=== PATIENT | male | born 1955 | race Two or more races ===

== ENCOUNTER 2020-03-10 12:17 | Inpatient (IN) | payer OTHER ==
--- NOTE | 2020-03-10 12:51 | PDOC ---
History of Present Illness - General Chief Complaint: Wound Stated Complaint: WOUND Time Seen by Provider: 03/10/20 12:48 History Source: Patient Exam Limitations: No Limitations - History of Present Illness Initial Comments: 64 year old male with a history of CAD s/p CABG (3 vessel) and cardiac stent, diabetes, hypertension, atrial fibrillation, iron deficiency anemia sent by Dr Ibrahim for chronic worsening left foot wound. Has been followed by Dr Ibrahim podiatry, treatment w wound clinic and hyperbarics. Last admitted 01/18- for L toe dry gangrene, followed w Dr Dangelo vascular, amputated L 2nd digit with Dr. Gonzalez on 01/23/20. Denies foot pain, discharge/bleeding, numbness. Past History - Medical History Allergies/Adverse Reactions: Allergies Allergy/AdvReac Type Severity Reaction Status Date / Time No Known Allergies Allergy Verified 03/10/20 12:44 Home Medications: Ambulatory Orders Empagliflozin [Jardiance] 10 mg PO DAILY 01/14/20 Furosemide [Lasix] 40 mg PO BID 01/14/20 Lisinopril [Zestril] 2.5 mg PO DAILY 01/14/20 Sitagliptin Phosphate [Januvia] 25 mg PO DAILY 01/14/20 Baclofen 10 mg PO BID 01/23/20 Apixaban [Eliquis -] 5 mg PO BID #60 tablet 01/24/20 Aspirin [ASA -] 81 mg PO DAILY tab.chew 01/24/20 Atorvastatin Ca [Lipitor] 80 mg PO HS #30 tablet 01/24/20 Docusate Sodium [Colace -] 100 mg PO BID #40 capsule 01/24/20 Ferrous Sulfate [Feosol] 325 mg PO BID #60 ud 01/24/20 Metoprolol Tartrate [Lopressor -] 12.5 mg PO BID #60 tablet 01/24/20 Cardiac Disorders: Yes (CAD . s/p PCI , HTN NSTEMI 02/2019) COPD: No Diabetes: Yes (PAD) HTN: Yes Hypercholesterolemia: Yes - Surgical History Cardiac Surgery: Yes (CABG s/p percutaneous coronary angioplasty) - Psycho-Social/Smoking History Smoking History: Former smoker Have you smoked in the past 12 months: No Number of Cigarettes Smoked Daily: 20 If you are a former smoker, when did you quit?: 30 years ago Cigars Per Day: 0 Information on smoking cessation initiated: No - Substance Abuse Hx (Audit-C & DAST Scrn) How often the patient has a drink containing alcohol: Never Score: In Men: 4 or > Positive; In Women: 3 or > Positive: 0 Screen Result (Pos requires Nsg. Audit-10AR): Negative In the last yr the pt used illegal drug/Rx for NonMed reason: No Score: Yes response is considered Positive: 0 Screen Result (Positive result requires Nsg. DAST-10): Negative Review of Systems - Review of Systems Constitutional: No: Chills, Fever HEENTM: No: Eye Pain, Throat Pain Respiratory: No: Cough, Shortness of Breath Cardiac (ROS): No: Chest Pain, Lightheadedness ABD/GI: No: Abdominal Distended, Constipated, Diarrhea, Nausea, Vomiting : No: Burning, Dysuria Musculoskeletal: No: Back Pain, Joint Pain Integumentary: No: Bruising, Dryness Neurological: No: Headache, Seizure Psychiatric: No: Anxiety, Depression Endocrine: No: Intolerance to Cold, Intolerance to Heat Hematologic/Lymphatic: No: Anemia, Blood Clots *Physical Exam - Vital Signs Last Vital Signs Temp Pulse Resp BP Pulse Ox 97.9 F 85 18 121/70 100 03/10/20 12:20 03/10/20 12:20 03/10/20 12:20 03/10/20 12:20 03/10/20 12:20 - Physical Exam General Appearance: Yes: Nourished, Appropriately Dressed, Mild Distress HEENT: positive: EOMI, BEBA, Normal Voice, Hearing Grossly Normal. negative: Scleral Icterus (R), Scleral Icterus (L) Respiratory/Chest: positive: Lungs Clear, Normal Breath Sounds. negative: Chest Tender, Respiratory Distress Cardiovascular: positive: Regular Rhythm, Regular Rate, S1, S2. negative: Edema, Murmur Gastrointestinal/Abdominal: positive: Normal Bowel Sounds, Flat, Soft. negative: Tender, Organomegaly Extremity: positive: Other (L foot : warm, darkened toes. 4x2cm non purulent white/yellow ulcer over L 2nd digit amputation. nonpalpable DP pulse. Able to wiggle toes. Intact sensation to touch. Mildly tender distal MTP base) Integumentary: positive: Normal Color, Warm Neurologic: positive: Fully Oriented, Alert, Normal Response ED Treatment Course - LABORATORY CBC & Chemistry Diagram: 03/10/20 13:00 03/10/20 13:00 Medical Decision Making - Medical Decision Making 03/10/20 15:02 EKG - a fib w pacemaker, HR 81, QTc 478, TWI V6, II, III, aVF, unchanged vs 01/22 --- 64 year old male with a history of CAD s/p CABG (3 vessel) and cardiac stent, diabetes, hypertension, atrial fibrillation, iron deficiency anemia sent by Dr Ibrahim for chronic worsening left foot wound. Gangrene vs cellulitis. Low concern for arterial occlusion (intact sensation, not painful) vs oteomyelitis (not seen on XR). Neurovascular intact Cr 1.6 unchanged Given vanc, zosyn Dr Ibrahim podiatry - advised cover w broad spectrum AB, get XR, inpatient routine MRI, will evaluate Placed consults for Dr Hair ID and Dr Dangelo vascular Admit m/s for L foot ulcer Discharge - Discharge Information Problems reviewed: Yes Clinical Impression/Diagnosis: Foot ulcer Qualifiers: Laterality: left Non-pressure ulcer stage: with necrosis of muscle Qualified Code(s): L97.523 - Non-pressure chronic ulcer of other part of left foot with necrosis of muscle Condition: Stable - Follow up/Referral - Patient Discharge Instructions - Post Discharge Activity
[2020-03-10] MEDS ORDERED: PIPERACILLIN/TAZOB 4.5 GM 4.5 GM in DEXTROSE 5%-WATER 100 ML IVPB ONE (13:42)
[2020-03-10] MEDS ORDERED: VANCOMYCIN 1 GM in D5W (PRE-DOCKED) 1,000 MG/250 ML IVPB ONE (13:42)
[2020-03-10] MEDS ORDERED: PIPERACILLIN/TAZOB 4.5 GM 4.5 GM/100 ML BAG IVPB ONE (14:19)
[2020-03-10] MEDS ORDERED: VANCOMYCIN 1 GRAM (PRE-DOCKED) 1,000 MG/250 ML BAG IVPB ONE ×2 (14:19→14:20)
[2020-03-10 14:25] LABS: BASO % 0.9 % (0-2.0); EOS % 3.3 % (0-4.5); HEMATOCRIT 41.3 % (35.4-49); LYMPH % 13.6 % (8-40); MCH 24.2 pg (25.7-33.7); MCHC 31.5 g/dl (32.0-35.9); MEAN CELL VOLUME 76.9 fl (80-96); MEAN PLT VOLUME 8.4 fl (7.5-11.1); MONO % 11.9 % (3.8-10.2); NEUT % 70.3 % (42.8-82.8); PLATELET COUNT 229 K/MM3 (134-434); RBC 5.38 M/mm3 (4.00-5.60); RDW 19.8 % (11.9-15.9); WHITE BLOOD COUNT 8.7 K/mm3 (4.0-10.0)
[2020-03-10 14:52] LABS: ALBUMIN 3.5 g/dl (3.4-5.0); BILIRUBIN,TOTAL 0.8 mg/dL (0.2-1); BLOOD UREA NITROGEN 35.6 mg/dL (7-18); CALCIUM 8.9 mg/dL (8.5-10.1); CREATININE 1.6 mg/dL (0.55-1.3); POTASSIUM 4.4 mmol/L (3.5-5.1); TOT PROT 7.5 g/dl (6.4-8.2)
--- NOTE | 2020-03-10 15:43 | PN ---
Teaching Attending Note Name of Resident: Angelica Fountain ATTENDING PHYSICIAN STATEMENT I saw and evaluated the patient. I reviewed the resident's note and discussed the case with the resident. I agree with the resident's findings and plan as documented. SUBJECTIVE: 64 year old male with known history of CAD/ CABG, history of cardiac stent placement,s DM 2, hypertension, Atrial fib (?AC) iron deficiency anemia who was sent by Dr Ibrahim for chronic worsening left foot wound. He was last admitted 01/2020 for left toe gangrene sp amputation of the left second MTP. OBJECTIVE: 64 year old male who appears appropriate for stated age Agree with Exam by Dr Fountain ASSESSMENT AND PLAN: 1. Nonhealing left foot ulcer - Digital Community Manager Dr Ibrahim will follow - inpt MRI ordered (Dr Ballard and ED) - ID gis consultant Dr Hair and Dr Dangelo already consulted by ED - await assessment by services as above for further management recommendations 2. CAD/ Afib - not on AC - chest pain free - afib with acceptable rate 3. DM 2 - will start SSI, accuchecks 4. DVT prophylaxis - SCD
--- NOTE | 2020-03-10 15:57 | PDOC ---
Documentation entered by Brigid Velazquez SCRIBE, acting as scribe for Aaron Bird MD. Aaron Bird MD: This documentation has been prepared by the Caroline villalta Nirvannie, SCRIBE, under my direction and personally reviewed by me in its entirety. I confirm that the documentation accurately reflects all work, treatment, procedures, and medical decision making performed by me. Attending Attestation - Resident Resident Name: SisiAbram - ED Attending Attestation I have performed the following: I have examined & evaluated the patient, The case was reviewed & discussed with the resident, I agree w/resident's findings & plan, Exceptions are as noted - HPI HPI: 03/10/20 15:09 64yom with a significant past medical history of cad (s/p 3 vessel cabg and cardiac stenting), dm, htn, afib, iron deficiency anemia, and recent admission 01/18- for left 2nd toe gangrene (s/p left second toe amputation 01/22)who presents to the ed with progressively worsening left foot wound. As per patient, he is followed by podiatry, Dr. Ibrahim, at wound care/hyperbarics and was advised to report to the ed by podiatry to report to the ed for further evaluation. - Physicial Exam PE: 03/10/20 13:42 GENERAL: The patient is awake, alert, and fully oriented, Nontoxic - in no acute distress. EXTREMITIES: wound on area of amputation, non eryuthemaouds, discharge in the region, non fluctuabnt, mild tenderness at the 2nd metatarsal SKIN: Warm, Dry, normal turgor, - Medical Decision Making 03/10/20 13:44 64y M hxof ESRD, cad sp cabg, dm, htn, afib on xeralto, sp L 2nd digit amputation on 01/22 sent by wound care for evaluation of his wound. pt notes some soreness to the region, but dneis nay fever/chills, n/v, signiicnat pain, redness/swelling, streaking. will obtian lab work will give abx per dr. molina instructions xray to screen for osteo anticipate admission 03/10/20 18:50 Labs and x-rays reviewed, will admit for further managementFor further evaluation of his wound Heart Score/ECG Review - ECG Impressions Comment:: 03/10/20 13:45 Twelve-lead EKG was performed and reviewed by me. Irregularly irregular, rate of 81 Rightward axis Discharge - Discharge Information Problems reviewed: Yes Clinical Impression/Diagnosis: Foot ulcer Qualifiers: Laterality: left Non-pressure ulcer stage: with necrosis of muscle Qualified Code(s): L97.523 - Non-pressure chronic ulcer of other part of left foot with necrosis of muscle Condition: Stable - Follow up/Referral - Patient Discharge Instructions - Post Discharge Activity
[2020-03-10] MEDS ORDERED: ACETAMINOPHEN 325 MG TABLET (FP) PO PRN (17:36)
--- NOTE | 2020-03-10 17:50 | HP ---
<Belkis Howell - Last Filed: 03/11/20 11:53> CHIEF COMPLAINT: PCP: HISTORY OF PRESENT ILLNESS: ER course was notable for: (1) (2) (3) Recent Travel: PAST MEDICAL HISTORY: PAST SURGICAL HISTORY: Social History: Smoking: Alcohol: Drugs: Allergies No Known Allergies Allergy (Verified 03/10/20 12:44) HOME MEDICATIONS: Home Medications Medication Instructions Recorded Empagliflozin [Jardiance] 10 mg PO DAILY 01/14/20 Furosemide [Lasix] 40 mg PO BID 01/14/20 Lisinopril [Zestril] 2.5 mg PO DAILY 01/14/20 Sitagliptin Phosphate [Januvia] 25 mg PO DAILY 01/14/20 Baclofen 10 mg PO BID 01/23/20 Apixaban [Eliquis -] 5 mg PO BID #60 tablet 01/24/20 Aspirin [ASA -] 81 mg PO DAILY tab.chew 01/24/20 Atorvastatin Ca [Lipitor] 80 mg PO HS #30 tablet 01/24/20 Docusate Sodium [Colace -] 100 mg PO BID #40 capsule 01/24/20 Ferrous Sulfate [Feosol] 325 mg PO BID #60 ud 01/24/20 Metoprolol Tartrate [Lopressor -] 12.5 mg PO BID #60 tablet 01/24/20 REVIEW OF SYSTEMS CONSTITUTIONAL: Absent: fever, chills, diaphoresis, generalized weakness, malaise, loss of appetite, weight change HEENT: Absent: rhinorrhea, nasal congestion, throat pain, throat swelling, difficulty swallowing, mouth swelling, ear pain, eye pain, visual changes CARDIOVASCULAR: Absent: chest pain, syncope, palpitations, irregular heart rate, lightheadedness, peripheral edema RESPIRATORY: Absent: cough, shortness of breath, dyspnea with exertion, orthopnea, wheezing, stridor, hemoptysis GASTROINTESTINAL: Absent: abdominal pain, abdominal distension, nausea, vomiting, diarrhea, constipation, melena, hematochezia GENITOURINARY: Absent: dysuria, frequency, urgency, hesitancy, hematuria, flank pain, genital pain MUSCULOSKELETAL: Absent: myalgia, arthralgia, joint swelling, back pain, neck pain SKIN: Absent: rash, itching, pallor HEMATOLOGIC/IMMUNOLOGIC: Absent: easy bleeding, easy bruising, lymphadenopathy, frequent infections ENDOCRINE: Absent: unexplained weight gain, unexplained weight loss, heat intolerance, cold intolerance NEUROLOGIC: Absent: headache, focal weakness or paresthesias, dizziness, unsteady gait, seizure, mental status changes, bladder or bowel incontinence PSYCHIATRIC: Absent: anxiety, depression, suicidal or homicidal ideation, hallucinations. PHYSICAL EXAMINATION Vital Signs - 24 hr 03/10/20 03/10/20 03/10/20 12:20 12:52 18:28 Temperature 97.9 F 98.6 F Pulse Rate 85 Pulse Rate [ 86 Radial] Respiratory 18 20 Rate Blood Pressure 121/70 Blood Pressure 115/69 [Left Arm] O2 Sat by Pulse 100 97 98 Oximetry (%) 03/10/20 03/10/20 03/11/20 20:00 21:00 02:00 Temperature 98.2 F 99.2 F Pulse Rate 121 H 94 H Pulse Rate [ Radial] Respiratory 20 20 20 Rate Blood Pressure 142/91 139/59 L Blood Pressure [Left Arm] O2 Sat by Pulse 97 97 Oximetry (%) 03/11/20 03/11/20 03/11/20 06:00 09:00 10:00 Temperature 99.2 F Pulse Rate 104 H 96 H Pulse Rate [ Radial] Respiratory 20 18 Rate Blood Pressure 100/62 118/66 Blood Pressure [Left Arm] O2 Sat by Pulse 96 Oximetry (%) GENERAL: Awake, alert, and fully oriented, in no acute distress. HEAD: Normal with no signs of trauma. EYES: Pupils equal, round and reactive to light, extraocular movements intact, sclera anicteric, conjunctiva clear. No lid lag. EARS, NOSE, THROAT: Ears normal, nares patent, oropharynx clear without ex udates. Moist mucous membranes. NECK: Normal range of motion, supple without lymphadenopathy, JVD, or masses. LUNGS: Breath sounds equal, clear to auscultation bilaterally. No wheezes, and no crackles. No accessory muscle use. HEART: Regular rate and rhythm, normal S1 and S2 without murmur, rub or gallop. ABDOMEN: Soft, nontender, not distended, normoactive bowel sounds, no guarding, no rebound, no masses. No hepatomegaly or splenomegaly. MUSCULOSKELETAL: Normal range of motion at all joints. No bony deformities or tenderness. No CVA tenderness. UPPER EXTREMITIES: 2+ pulses, warm, well-perfused. No cyanosis. No clubbing. No peripheral edema. LOWER EXTREMITIES: 2+ pulses, warm, well-perfused. No calf tenderness. No peripheral edema. NEUROLOGICAL: Cranial nerves II-XII intact. Normal speech. Normal gait. PSYCHIATRIC: Cooperative. Good eye contact. Appropriate mood and affect. SKIN: Warm, dry, normal turgor, no rashes or lesions noted, normal capillary refill. Laboratory Results - last 24 hr 03/10/20 03/10/20 03/10/20 13:00 13:00 18:15 WBC 8.7 RBC 5.38 Hgb 13.0 Hct 41.3 D MCV 76.9 L MCH 24.2 L MCHC 31.5 L RDW 19.8 H Plt Count 229 MPV 8.4 Absolute Neuts (auto) 6.1 Neutrophils % 70.3 Lymphocytes % 13.6 D Monocytes % 11.9 H Eosinophils % 3.3 Basophils % 0.9 Nucleated RBC % 0 PT with INR INR PTT (Actin FS) Sodium 138 Potassium 4.4 Chloride 102 Carbon Dioxide 30 Anion Gap 7 L BUN 35.6 H Creatinine 1.6 H Est GFR (CKD-EPI)AfAm 52.36 Est GFR (CKD-EPI)NonAf 45.18 POC Glucometer 219 Random Glucose 120 H Calcium 8.9 Phosphorus Magnesium Total Bilirubin 0.8 AST 16 ALT 24 Alkaline Phosphatase 87 Total Protein 7.5 Albumin 3.5 Triglycerides Cholesterol Total LDL Cholesterol HDL Cholesterol Blood Type Antibody Screen 03/10/20 03/11/20 03/11/20 21:07 06:13 08:36 WBC 10.0 RBC 5.05 Hgb 12.3 Hct 39.2 MCV 77.6 L MCH 24.3 L MCHC 31.3 L RDW 19.8 H Plt Count 228 MPV 8.3 Absolute Neuts (auto) 7.4 Neutrophils % 73.7 Lymphocytes % 12.6 Monocytes % 10.0 Eosinophils % 2.7 Basophils % 1.0 Nucleated RBC % 0 PT with INR INR PTT (Actin FS) Sodium Potassium Chloride Carbon Dioxide Anion Gap BUN Creatinine Est GFR (CKD-EPI)AfAm Est GFR (CKD-EPI)NonAf POC Glucometer 257 153 Random Glucose Calcium Phosphorus Magnesium Total Bilirubin AST ALT Alkaline Phosphatase Total Protein Albumin Triglycerides Cholesterol Total LDL Cholesterol HDL Cholesterol Blood Type Antibody Screen 03/11/20 03/11/20 03/11/20 08:36 08:36 08:36 WBC RBC Hgb Hct MCV MCH MCHC RDW Plt Count MPV Absolute Neuts (auto) Neutrophils % Lymphocytes % Monocytes % Eosinophils % Basophils % Nucleated RBC % PT with INR 22.80 H INR 1.92 H PTT (Actin FS) 38.3 H Sodium 140 Potassium 4.3 Chloride 105 Carbon Dioxide 30 Anion Gap 5 L BUN 32.9 H Creatinine 1.8 H Est GFR (CKD-EPI)AfAm 45.41 Est GFR (CKD-EPI)NonAf 39.18 POC Glucometer Random Glucose 128 H Calcium 8.7 Phosphorus 4.2 Magnesium 2.7 H Total Bilirubin 1.6 H AST 12 L ALT 22 Alkaline Phosphatase 79 Total Protein 6.9 Albumin 3.0 L Triglycerides Cholesterol Total LDL Cholesterol HDL Cholesterol Blood Type O POSITIVE Antibody Screen Negative 03/11/20 08:36 WBC RBC Hgb Hct MCV MCH MCHC RDW Plt Count MPV Absolute Neuts (auto) Neutrophils % Lymphocytes % Monocytes % Eosinophils % Basophils % Nucleated RBC % PT with INR INR PTT (Actin FS) Sodium Potassium Chloride Carbon Dioxide Anion Gap BUN Creatinine Est GFR (CKD-EPI)AfAm Est GFR (CKD-EPI)NonAf POC Glucometer Random Glucose Calcium Phosphorus Magnesium Total Bilirubin AST ALT Alkaline Phosphatase Total Protein Albumin Triglycerides 54 Cholesterol 64 Total LDL Cholesterol 31 HDL Cholesterol 26 L Blood Type Antibody Screen ASSESSMENT/PLAN: Visit type - Emergency Visit Emergency Visit: Yes ED Registration Date: 03/10/20 Care time: The patient presented to the Emergency Department on the above date and was hospitalized for further evaluation of their emergent condition. - New Patient This patient is new to me today: Yes Date on this admission: 03/11/20 - Critical Care Critical Care patient: No ATTENDING PHYSICIAN STATEMENT I saw and evaluated the patient. I reviewed the resident's note and discussed the case with the resident. I agree with the resident's findings and plan as documented. SUBJECTIVE: OBJECTIVE: ASSESSMENT AND PLAN: <Andrew Partida - Last Filed: 03/30/20 18:38> CHIEF COMPLAINT: Pt complained of worsening of ullcer on Left foot at site of 2nd digit amputation. Says it is more "white." PCP: Dr. Looney HISTORY OF PRESENT ILLNESS: Beginning in December 2019, pt had darkening of 2nd digit of L foot. In previous admission in January, pt was treated for L toe dry gangrene, and followed by Dr. Dangelo from vascular. Pt had the 2nd digit of L foot amputated by Dr. Gonzalez on 01/22. Pt has followed-up weekly with Dr. Velarde for wound debridement on Tuesdays. Pt's exam with Dr. Ibrahim last Monday was unremarkable, and a nurse on Monday came to help change dressing of the wound. The nurse also found the amputation site unchanged. Pt began noticing drainage and change in color at the site the day before admission. He attended his regular Monday appointment with Dr. Ibrahim today, and Dr. Ibrahim sent the patient to ED. Pt endorsed pain ONLY at the bottom of his L foot ulcer. He denied bleeding & numbness. 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 Smoking: smoked 2.5 packs/day, quit 30 yrs ago Alcohol: no alcohol since 1981 Drugs: denies Allergies: none, no NKDA No Known Allergies Allergy (Verified 03/10/20 12:44) Family History 3 brother w/ DM, one of who from [place] father: stroke mother: breast cancer HOME MEDICATIONS: Home Medications Medication Instructions Recorded Empagliflozin [Jardiance] 10 mg PO DAILY 01/14/20 Furosemide [Lasix] 40 mg PO BID 01/14/20 Lisinopril [Zestril] 2.5 mg PO DAILY 01/14/20 Sitagliptin Phosphate [Januvia] 25 mg PO DAILY 01/14/20 Baclofen 10 mg PO BID 01/23/20 Apixaban [Eliquis -] 5 mg PO BID #60 tablet 01/24/20 Aspirin [ASA -] 81 mg PO DAILY tab.chew 01/24/20 Atorvastatin Ca [Lipitor] 80 mg PO HS #30 tablet 01/24/20 Docusate Sodium [Colace -] 100 mg PO BID #40 capsule 01/24/20 Ferrous Sulfate [Feosol] 325 mg PO BID #60 ud 01/24/20 Metoprolol Tartrate [Lopressor -] 12.5 mg PO BID #60 tablet 01/24/20 REVIEW OF SYSTEMS CONSTITUTIONAL: Absent: fever, chills, diaphoresis, generalized weakness, malaise, loss of appetite, weight change HEENT: Absent: rhinorrhea, nasal congestion, throat pain, throat swelling, difficulty swallowing, mouth swelling, ear pain, eye pain, visual changes CARDIOVASCULAR: Absent: chest pain, syncope, palpitations, irregular heart rate, lightheadedness, peripheral edema RESPIRATORY: Absent: cough, shortness of breath, dyspnea with exertion, orthopnea, wheezing, stridor, hemoptysis GASTROINTESTINAL: Absent: abdominal pain, abdominal distension, nausea, vomiting, diarrhea, cons tipation, melena, hematochezia GENITOURINARY: Absent: dysuria, frequency, urgency, hesitancy, hematuria, flank pain, genital pain MUSCULOSKELETAL: PRESENT: PAIN AT BASE OF METATARSAL AT SITE OF PREVIOUS L foot AT 2ND DIGIT AMPUTATION Absent: myalgia, arthralgia, joint swelling, back pain, neck pain SKIN: Absent: rash, itching, pallor HEMATOLOGIC/IMMUNOLOGIC: Absent: easy bleeding, easy bruising, lymphadenopathy, frequent infections ENDOCRINE: Absent: unexplained weight gain, unexplained weight loss, heat intolerance, cold intolerance NEUROLOGIC: Absent: headache, focal weakness or paresthesias, dizziness, unsteady gait, seizure, mental status changes, bladder or bowel incontinence PSYCHIATRIC: Absent: anxiety, depression, suicidal or homicidal ideation, hallucinations. PHYSICAL EXAMINATION Vital Signs - 24 hr 03/10/20 03/10/20 12:20 12:52 Temperature 97.9 F Pulse Rate 85 Respiratory 18 Rate Blood Pressure 121/70 O2 Sat by Pulse 100 97 Oximetry (%) GENERAL: Awake, alert, and fully oriented, in no acute distress. HEENT: NT/NC; conjunctiva clear. No lid lag, MMM NECK: Normal range of motion, supple without lymphadenopathy, JVD, or masses. LUNGS: Breath sounds equal, clear to auscultation bilaterally. No wheezes, and no crackles. No accessory muscle use. HEART: irregularly irregular, normal S1 and S2 without murmur, rub or gallop. MIDLINE surgical incision scar ABDOMEN: Soft, nontender,normoactive bowel sounds, no guarding, no rebound, Umbilical hernia MUSCULOSKELETAL: Normal range of motion at all joints. No bony deformities or tenderness. No CVA tenderness. UPPER EXTREMITIES: 2+ pulses, warm, well-perfused. No cyanosis. No clubbing. No peripheral edema. Abrasions on R arm that pt attributes to rough sponge he's used for bathing since he didn't take a bath due to his ulcer LOWER EXTREMITIES: 2+ pulses, warm, well-perfused. Non-pitting edema b/l. Skin ulcers over shins b/l. scar on L leg from vessel harvesting for CABG. serous drainage of ulcer at 2nd metatarsal of L foot. Ulcer is white in color. No erythema. Right: DP 2+, TP 3+ Left: DP 1+. TP 1+ NEUROLOGICAL: Normal speech. PSYCHIATRIC: Cooperative. Good eye contact. Appropriate mood and affect. SKIN: Warm, dry, normal turgor, no rashes or lesions noted, normal capillary refill. Laboratory Results - last 24 hr 03/10/20 03/10/20 13:00 13:00 WBC 8.7 RBC 5.38 Hgb 13.0 Hct 41.3 D MCV 76.9 L MCH 24.2 L MCHC 31.5 L RDW 19.8 H Plt Count 229 MPV 8.4 Absolute Neuts (auto) 6.1 Neutrophils % 70.3 Lymphocytes % 13.6 D Monocytes % 11.9 H Eosinophils % 3.3 Basophils % 0.9 Nucleated RBC % 0 Sodium 138 Potassium 4.4 Chloride 102 Carbon Dioxide 30 Anion Gap 7 L BUN 35.6 H Creatinine 1.6 H Est GFR (CKD-EPI)AfAm 52.36 Est GFR (CKD-EPI)NonAf 45.18 Random Glucose 120 H Calcium 8.9 Total Bilirubin 0.8 AST 16 ALT 24 Alkaline Phosphatase 87 Total Protein 7.5 Albumin 3.5 ASSESSMENT/PLAN: #Left foot ulcer -Podiatry following (Dr Ibrahim) -ID (Dr Hair) & vascular (Dr Dangelo) consulted -foot x-ray: no evidence of acute osteomyleitis -wound/blood cx ordered -started on vanc and zosyn -MRI of L foot w/ no contrast ordered #Afib, CAD (s/p CABG, stent) -c/w home med of apixiban (5 mg PO BID) & ASA (81 mg PO daily) -EKG: Irregularly irregular, rate of 81; Rightward axis #DM -ISS -BGM #HTN -will c/w home medication of lisinopril 2.5 mg PO daily & Lasix because at baseline Cr -baseline Cr: 1.7. Today's Cr is 1.6 #DVT ppx - SCD #FEN no fluids monitor w/ BMP diabetic/sodium controlled diet ATTENDING PHYSICIAN STATEMENT I saw and evaluated the patient. I reviewed the resident's note and discussed the case with the resident. I agree with the resident's findings and plan as documented. SUBJECTIVE: OBJECTIVE: ASSESSMENT AND PLAN:
--- NOTE | 2020-03-10 18:56 | HP ---
CHIEF COMPLAINT: L foot wound PCP: Dr. Looney ; Dr. Escobedo- Cardio HISTORY OF PRESENT ILLNESS: 64 yo M PMH CAD (s/p CABG, stents - last 02/2019) , DM, HTN, Afib ( on eliquis), iron deficiency anemia, prior LLE Angiogram with anterior tibial/posterior tibial/peroneal artery angioplasty( 01/21/20) and L second digit amputation 01/23/20. Pt was recommended to admit by Dr. Ibrahim for further management. pt states that his last debridement was last week. Pt also follows up with hyperbaric for wound care. he endorses some discomfort on the plantar aspect of his foot. denies fevers, chills , nausea vomiing. HOME MEDICATIONS: Home Medications Medication Instructions Recorded Empagliflozin [Jardiance] 10 mg PO DAILY 01/14/20 Furosemide [Lasix] 40 mg PO BID 01/14/20 Lisinopril [Zestril] 2.5 mg PO DAILY 01/14/20 Sitagliptin Phosphate [Januvia] 25 mg PO DAILY 01/14/20 Baclofen 10 mg PO BID 01/23/20 Apixaban [Eliquis -] 5 mg PO BID #60 tablet 01/24/20 Aspirin [ASA -] 81 mg PO DAILY tab.chew 01/24/20 Atorvastatin Ca [Lipitor] 80 mg PO HS #30 tablet 01/24/20 Docusate Sodium [Colace -] 100 mg PO BID #40 capsule 01/24/20 Ferrous Sulfate [Feosol] 325 mg PO BID #60 ud 01/24/20 Metoprolol Tartrate [Lopressor -] 12.5 mg PO BID #60 tablet 01/24/20 PHYSICAL EXAMINATION Vital Signs - 24 hr 03/10/20 03/10/20 12:20 12:52 Temperature 97.9 F Pulse Rate 85 Respiratory 18 Rate Blood Pressure 121/70 O2 Sat by Pulse 100 97 Oximetry (%) GENERAL: Awake, alert, and fully oriented, in no acute distress. HEAD: Normal with no signs of trauma. EYES: Pupils equal, round and reactive to light, extraocular movements intact, sclera anicteric, conjunctiva clear. No lid lag. NECK: no JVD noted LUNGS: Breath sounds equal, clear to auscultation bilaterally. No accessory muscle use. HEART: irregular rate and rhythm, normal S1 and S2 without murmur, rub or gallop. ABDOMEN: Soft, nontender, not distended, normoactive bowel sounds, no guarding, no rebound. umbilical hernia MUSCULOSKELETAL: No CVA tenderness. UPPER EXTREMITIES: 2+ pulses, warm, well-perfused. No cyanosis. No clubbing. No peripheral edema. LOWER EXTREMITIES: left second metatarsal diabetic ulcer almost entirely fibrotic slough, mild malodor present. There is no purulent drainage, no fluctuance, no streaking ascending cellulitis, no signs of acute infection. Mild tenderness to palpation. 1+ L popliteal and tibial pulse palpated NEUROLOGICAL: Cranial nerves II-XII intact. Normal speech Laboratory Results - last 24 hr 03/10/20 03/10/20 13:00 13:00 WBC 8.7 RBC 5.38 Hgb 13.0 Hct 41.3 D MCV 76.9 L MCH 24.2 L MCHC 31.5 L RDW 19.8 H Plt Count 229 MPV 8.4 Absolute Neuts (auto) 6.1 Neutrophils % 70.3 Lymphocytes % 13.6 D Monocytes % 11.9 H Eosinophils % 3.3 Basophils % 0.9 Nucleated RBC % 0 Sodium 138 Potassium 4.4 Chloride 102 Carbon Dioxide 30 Anion Gap 7 L BUN 35.6 H Creatinine 1.6 H Est GFR (CKD-EPI)AfAm 52.36 Est GFR (CKD-EPI)NonAf 45.18 Random Glucose 120 H Calcium 8.9 Total Bilirubin 0.8 AST 16 ALT 24 Alkaline Phosphatase 87 Total Protein 7.5 Albumin 3.5 ASSESSMENT/PLAN: 64 yo M PMH CAD (s/p CABG, stents - last 02/2019) , DM, HTN, Afib ( on eliquis), iron deficiency anemia, prior anterior- fib angioplasty ( 01/21/20) and amputation 01/23/20.Pt is admitted for wound management/ possible amputation - r/o osteomyelitis Non-healing wound s/p L digit amputation, r/o OM - Foot XR reveals no acute OM. will get MRI to further evaluate. - consulted podiatry, Dr. Ibrahim. spoke with over the phone and agrees with plan. states to continue eliquis as no plan for immediate procedure. - will continue Vanc/ Zosyn - Dr. Dangelo consulted and aware - coags, type and screen - cardiac risk stratification. cardio consulted CKD - from prior admission baseline reported 1.7. today Cr 1.6 - will cont lasix today but last admission pt Cr was above baseline and lasix was held by cardio. input would be appreciated. last admission RICARDO-I was contin ued. CAD s/p CABG and stents - cont Asa, statin - will get lipid panel DM - will get A1C -ISS, BGM Afib - cont eliquis - cont BB Fe Deficiency - cont iron HTN - cont lisinopril F/E/N -no standing fluids -replete lytes as necessary -Diabetic/sodium controlled diet DVTppx: on eliquis Dispo: admit to med/ surg Visit type - Emergency Visit Emergency Visit: Yes ED Registration Date: 03/10/20 Care time: The patient presented to the Emergency Department on the above date and was hospitalized for further evaluation of their emergent condition. - New Patient This patient is new to me today: Yes - Critical Care Critical Care patient: No ATTENDING PHYSICIAN STATEMENT I saw and evaluated the patient. I reviewed the resident's note and discussed the case with the resident. I agree with the resident's findings and plan as documented. SUBJECTIVE: OBJECTIVE: ASSESSMENT AND PLAN:
[2020-03-10 20:29] VITALS: BMI 30.4
[2020-03-10] MEDS ORDERED: PIPERACILLIN/TAZOBACTAM 4.5 GM VIAL IVPB ONE (20:42)
[2020-03-10] MEDS ORDERED: DEXTROSE 5%-WATER 100 ML IVPB ONE (20:42)
[2020-03-10] MEDS: PIPERACILLIN/TAZOB 4.5 GM 4.5 GM in DEXTROSE 5%-WATER 100 ML IVPB SCH (20:46)
[2020-03-10] MEDS: ATORVASTATIN CA 80 MG TABLET (FP) PO SCH (22:23)
[2020-03-10] MEDS: APIXABAN 5 MG TABLET PO SCH (22:24)
[2020-03-10] MEDS: FERROUS SO4 325 MG TABLET (FP) PO SCH (22:24)
[2020-03-10] MEDS: INSULIN SLIDING SCALE (NOVOLOG) 1 VIAL SQ SCH (22:24)
[2020-03-10] MEDS: DOCUSATE SODIUM 100 MG CAPSULE (FP) PO SCH (22:24)
[2020-03-10] MEDS: METOPROLOL TARTRATE 25 MG TABLET (FP) PO SCH (22:24)
[2020-03-11] MEDS ORDERED: PIPERACILLIN/TAZOBACTAM 4.5 GM VIAL IVPB ONE ×2 (03:08→09:37)
[2020-03-11] MEDS ORDERED: DEXTROSE 5%-WATER 100 ML IVPB ONE ×2 (03:09→09:37)
[2020-03-11] MEDS: PIPERACILLIN/TAZOB 4.5 GM 4.5 GM in DEXTROSE 5%-WATER 100 ML IVPB SCH ×4 (03:17→18:00)
[2020-03-11] MEDS: FUROSEMIDE 40 MG TABLET (FP) PO SCH ×2 (06:14→14:15)
[2020-03-11] MEDS: INSULIN SLIDING SCALE (NOVOLOG) 1 VIAL SQ SCH ×4 (06:15→21:09)
[2020-03-11 08:54] LABS: EOS % 2.7 % (0-4.5); HEMATOCRIT 39.2 % (35.4-49); HEMOGLOBIN 12.3 GM/dL (11.7-16.9); LYMPH % 12.6 % (8-40); MCH 24.3 pg (25.7-33.7); MCHC 31.3 g/dl (32.0-35.9); MEAN CELL VOLUME 77.6 fl (80-96); MEAN PLT VOLUME 8.3 fl (7.5-11.1); NEUT % 73.7 % (42.8-82.8); PLATELET COUNT 228 K/MM3 (134-434); RBC 5.05 M/mm3 (4.00-5.60); RDW 19.8 % (11.9-15.9)
[2020-03-11 08:55] LABS: INR 1.92 (0.83-1.09); PROTHROMBIN TIME (PATIENT) 22.8 SEC (9.7-13.0)
[2020-03-11 08:59] LABS: ACTIVATED PTT 38.3 SECONDS (25.2-36.5)
[2020-03-11 09:13] LABS: BILIRUBIN,TOTAL 1.6 mg/dL (0.2-1); BLOOD UREA NITROGEN 32.9 mg/dL (7-18); CALCIUM 8.7 mg/dL (8.5-10.1); CREATININE 1.8 mg/dL (0.55-1.3); MAGNESIUM 2.7 mg/dL (1.8-2.4); PHOSPHOROUS 4.2 mg/dL (2.5-4.9); POTASSIUM 4.3 mmol/L (3.5-5.1); TOT PROT 6.9 g/dl (6.4-8.2)
[2020-03-11 09:29] LABS: CHOLESTEROL 64 mg/dL (50-200); HDL CHOLESTEROL 26 mg/dL (40-60); LDL CHOLESTEROL (ONLY SJRH) 31 mg/dL (5-100); TRIGLYCERIDES 54 mg/dL (0-150)
[2020-03-11] MEDS: APIXABAN 5 MG TABLET PO SCH (09:45)
[2020-03-11] MEDS: DOCUSATE SODIUM 100 MG CAPSULE (FP) PO SCH ×2 (09:45→21:09)
[2020-03-11] MEDS: ASPIRIN 81 MG CHEWABLE TABLETS PO SCH (09:45)
[2020-03-11] MEDS: LISINOPRIL 5 MG TABLET (FP) PO SCH (09:45)
[2020-03-11] MEDS: FERROUS SO4 325 MG TABLET (FP) PO SCH ×2 (09:46→21:08)
[2020-03-11] MEDS: METOPROLOL TARTRATE 25 MG TABLET (FP) PO SCH ×2 (09:46→21:09)
[2020-03-11] MEDS ORDERED: VANCOMYCIN 1 GRAM (PRE-DOCKED) 1,000 MG/250 ML BAG IVPB ONE (10:00)
[2020-03-11] MEDS ORDERED: VANCOMYCIN 1 GM in D5W (PRE-DOCKED) 1,000 MG/250 ML IVPB SCH (10:00)
--- NOTE | 2020-03-11 10:43 | EKG ---
Test Reason : Blood Pressure : / mmHG Vent. Rate : 081 BPM Atrial Rate : 092 BPM P-R Int : 000 ms QRS Dur : 140 ms QT Int : 412 ms P-R-T Axes : 000 095 202 degrees QTc Int : 478 ms ATRIAL FIBRILLATION WITH A COMPETING JUNCTIONAL PACEMAKER RIGHTWARD AXIS NON-SPECIFIC INTRA-VENTRICULAR CONDUCTION BLOCK NONSPECIFIC T WAVE ABNORMALITY ABNORMAL ECG WHEN COMPARED WITH ECG OF 23-JAN-2020 14:12, NO SIGNIFICANT CHANGE WAS FOUND Confirmed by MD Ari, Madan ([id number]) on 03/11/2020 10:42:44 AM Referred By: Confirmed By:Madan Chapman MD
--- NOTE | 2020-03-11 11:35 | CONSULT ---
Consult - text type - Consultation Consultation Note: Podiatry Consultation: 64 year old diabetic male, history of CAD and PVD, presented to wound care yesterday with worsening diabetic ulcer left second ray. He is s/p left second digit amputation shortly after LLE angioplasty with Dr. Dangelo. Incision developed dehiscence and now he has exposed second metatarsal. There has been some malodor to the ulcer as well. He is currently afebrile, VSS. PMHx: CAD/ CABG, history of cardiac stent placement,s DM 2, hypertension, Atrial fib (?AC) iron deficiency anemia Meds: noted ALL: NKMA TAMMY: L foot: pedal pulses nonpalpable, TG wnl, CFT 3 seconds to remaining digits. There is a second ray diabetic ulcer all fibrotic slough, minimal granulation tissue, exposed second metatarsal. There is no purulent drainage, no fluctuance, no streaking ascending cellulitis, no signs of active infection. Mild tenderness to palpation. There is dry eschar to the medial aspect of the third digit. MRI: demonstrates osteomyelitis second metatarsal, third metatarsal Imp: 64 year old diabetic male with left second ray diabetic ulcer, osteomyelitis 1. IV abx per infectious diseases 2. DSD L foot 3. MRI noted. Needs vascular consultation 4. Once vascular cleared, will discuss treatment options with patient. Namely, TMA versus second ray debridement. Will follow. Thank you for the courtesy of this consultation. Radha Ibrahim DPM
--- NOTE | 2020-03-11 11:56 | PN ---
Progress Note (short form) - Note Progress Note: ID consult dictated osteomyelitis s/p amputation of second toe left foot 01/22-wound dehiscence s/p angioplasty 01/20 DM PVD CAD- history of cabg ckd mri with evidenc of osteomyelitis distals econd toe and third toe continue zosyn vanco by levels f/u with vascular and podiatry esr/crp to trend Problem List - Problems (1) Osteomyelitis Code(s): M86.9 - OSTEOMYELITIS, UNSPECIFIED (2) PVD (peripheral vascular disease) Code(s): I73.9 - PERIPHERAL VASCULAR DISEASE, UNSPECIFIED (3) Diabetes Code(s): E11.9 - TYPE 2 DIABETES MELLITUS WITHOUT COMPLICATIONS (4) CAD (coronary artery disease) Code(s): I25.10 - ATHSCL HEART DISEASE OF [place] CORONARY ARTERY W/O ANG PCTRS (5) CKD (chronic kidney disease) Code(s): N18.9 - CHRONIC KIDNEY DISEASE, UNSPECIFIED
--- NOTE | 2020-03-11 17:51 | PN ---
Teaching Attending Note Name of Resident: Andrew Partida ATTENDING PHYSICIAN STATEMENT I saw and evaluated the patient. I reviewed the resident's note and discussed the case with the resident. I agree with the resident's findings and plan as documented. SUBJECTIVE: No fever or chills. pain in amputation site. no other complaints OBJECTIVE: NAd , awake, alert, CV: reg irreg , 2/6 SM at LLSB Abd: soft , NT, reducible umbilical hernia with no skin changes Ext : L foot edema , no erythema s/p amputation of 2nd toe with slough over site . no drainage expressed. DP 2+ b/l ASSESSMENT AND PLAN: 64 y/o man with h/o CAD, s/p stents, OM s/p L 2nd toe amputation 01/23/20, HTN, DM, anemia, A fib, who presented with discharge from L foot wound. he was found to have OM 1- OM of the L 2nd and 3rd metatarsal heads. wound cx with pseudomonas and group D strep - cont zosyn and vanco. - follow final cx. - follow vascular consult - if surgical debridement to be planned , will need to hold eliquis x 2 days given his Cr cl of 48%, to avoid bleeding. will hold tonight for tentative procedure on Monday. 2- H/o A fib: cont eliquis, and lopressor 3- CAD : cont BB , adn ASa 4- DM : Hold januvia and jardiance and cont SSI 5- CKD: Cr around base line . cont lisinopril 6- HTN : cont lopressor and lisinopril HLOC
[2020-03-11] MEDS ORDERED: DEXTROSE 5%-WATER - 50 ML IVPB ONE (18:01)
[2020-03-11] MEDS ORDERED: PIPERACILLIN/TAZOBACTAM 3.375 GM VIAL IVPB ONE (18:01)
[2020-03-11] MEDS: PIPERACILLIN/TAZOB 3.375 GM 3.375 GM in DEXTROSE 5%-WATER - 50 ML IVPB SCH (18:04)
--- NOTE | 2020-03-11 18:04 | PN ---
Physical Exam: SUBJECTIVE: No overnight events. Patient seen and examined. NAD. ROS negative OBJECTIVE: Vital Signs Period Temp Pulse Resp BP Sys/Jiménez Pulse Ox Last 24 Hr 98.2 F-99.2 F 84-121 18-20 100-142/59-91 96-98 GENERAL: Awake, alert, and fully oriented, in no acute distress. HEENT: NT/NC; conjunctiva clear. No lid lag, MMM NECK: Normal range of motion, supple without lymphadenopathy, JVD, or masses. LUNGS: Breath sounds equal, clear to auscultation bilaterally. No wheezes, and no crackles. No accessory muscle use. HEART: irregularly irregular, normal S1 and S2 without murmur, rub or gallop. MIDLINE surgical incision scar ABDOMEN: Soft, nontender,normoactive bowel sounds, no guarding, no rebound, Umbilical hernia MUSCULOSKELETAL: Normal range of motion at all joints. No bony deformities or tenderness. No CVA tenderness. UPPER EXTREMITIES: 2+ pulses, warm, well-perfused. No cyanosis. No clubbing. No peripheral edema. Abrasions on R arm that pt attributes to rough sponge he's used for bathing since he didn't take a bath due to his ulcer LOWER EXTREMITIES: 2+ pulses, warm, well-perfused. Non-pitting edema b/l. Skin ulcers over shins b/l. scar on L leg from vessel harvesting for CABG. Minimal serous drainage of ulcer at 2nd metatarsal of L foot. Ulcer is white in color. No erythema. Right: DP 2+, TP 2+ Left: DP 1+. TP 1+ NEUROLOGICAL: Normal speech. PSYCHIATRIC: Cooperative. Good eye contact. Appropriate mood and affect. SKIN: Warm, dry, normal turgor, no rashes or lesions noted, normal capillary refill. Laboratory Results - last 24 hr 03/10/20 03/10/20 03/11/20 18:15 21:07 06:13 WBC RBC Hgb Hct MCV MCH MCHC RDW Plt Count MPV Absolute Neuts (auto) Neutrophils % Lymphocytes % Monocytes % Eosinophils % Basophils % Nucleated RBC % PT with INR INR PTT (Actin FS) Sodium Potassium Chloride Carbon Dioxide Anion Gap BUN Creatinine Est GFR (CKD-EPI)AfAm Est GFR (CKD-EPI)NonAf POC Glucometer 219 257 153 Random Glucose Calcium Phosphorus Magnesium Total Bilirubin AST ALT Alkaline Phosphatase Total Protein Albumin Triglycerides Cholesterol Total LDL Cholesterol HDL Cholesterol Blood Type Antibody Screen 03/11/20 03/11/20 03/11/20 08:36 08:36 08:36 WBC 10.0 RBC 5.05 Hgb 12.3 Hct 39.2 MCV 77.6 L MCH 24.3 L MCHC 31.3 L RDW 19.8 H Plt Count 228 MPV 8.3 Absolute Neuts (auto) 7.4 Neutrophils % 73.7 Lymphocytes % 12.6 Monocytes % 10.0 Eosinophils % 2.7 Basophils % 1.0 Nucleated RBC % 0 PT with INR 22.80 H INR 1.92 H PTT (Actin FS) 38.3 H Sodium 140 Potassium 4.3 Chloride 105 Carbon Dioxide 30 Anion Gap 5 L BUN 32.9 H Creatinine 1.8 H Est GFR (CKD-EPI)AfAm 45.41 Est GFR (CKD-EPI)NonAf 39.18 POC Glucometer Random Glucose 128 H Calcium 8.7 Phosphorus 4.2 Magnesium 2.7 H Total Bilirubin 1.6 H AST 12 L ALT 22 Alkaline Phosphatase 79 Total Protein 6.9 Albumin 3.0 L Triglycerides Cholesterol Total LDL Cholesterol HDL Cholesterol Blood Type Antibody Screen 03/11/20 03/11/20 03/11/20 08:36 08:36 12:05 WBC RBC Hgb Hct MCV MCH MCHC RDW Plt Count MPV Absolute Neuts (auto) Neutrophils % Lymphocytes % Monocytes % Eosinophils % Basophils % Nucleated RBC % PT with INR INR PTT (Actin FS) Sodium Potassium Chloride Carbon Dioxide Anion Gap BUN Creatinine Est GFR (CKD-EPI)AfAm Est GFR (CKD-EPI)NonAf POC Glucometer 210 Random Glucose Calcium Phosphorus Magnesium Total Bilirubin AST ALT Alkaline Phosphatase Total Protein Albumin Triglycerides 54 Cholesterol 64 Total LDL Cholesterol 31 HDL Cholesterol 26 L Blood Type O POSITIVE Antibody Screen Negative 03/11/20 17:10 WBC RBC Hgb Hct MCV MCH MCHC RDW Plt Count MPV Absolute Neuts (auto) Neutrophils % Lymphocytes % Monocytes % Eosinophils % Basophils % Nucleated RBC % PT with INR INR PTT (Actin FS) Sodium Potassium Chloride Carbon Dioxide Anion Gap BUN Creatinine Est GFR (CKD-EPI)AfAm Est GFR (CKD-EPI)NonAf POC Glucometer 144 Random Glucose Calcium Phosphorus Magnesium Total Bilirubin AST ALT Alkaline Phosphatase Total Protein Albumin Triglycerides Cholesterol Total LDL Cholesterol HDL Cholesterol Blood Type Antibody Screen Active Medications Generic Name Dose Route Start Last Admin Trade Name Freq PRN Reason Stop Dose Admin Acetaminophen 650 mg 03/10/20 17:36 Tylenol - PO Q6H PRN Fever Or Pain Apixaban 5 mg 03/10/20 22:00 03/11/20 09:45 Eliquis - PO 5 mg BID ELYSIA Administration Aspirin 81 mg 03/11/20 10:00 03/11/20 09:45 Asa - PO 81 mg DAILY ELYSIA Administration Atorvastatin Calcium 80 mg 03/10/20 22:00 03/10/20 22:23 Lipitor - PO 80 mg HS ELYSIA Administration Docusate Sodium 100 mg 03/10/20 22:00 03/11/20 09:45 Colace - PO 100 mg BID ELYSIA Administration Ferrous Sulfate 325 mg 03/10/20 22:00 03/11/20 09:46 Feosol - PO 325 mg BID ELYSIA Administration Furosemide 40 mg 03/11/20 06:00 03/11/20 14:15 Lasix - PO 40 mg BIDLASIX ELYSIA Administration Piperacillin Sod/Tazobactam 50 mls @ 100 mls/hr 03/11/20 18:00 Sod 3.375 gm/ Dextrose IVPB Q8H-IV ELYSIA Protocol Insulin Aspart 0 vial 03/10/20 22:00 03/11/20 12:18 Novolog Vial Sliding Scale - SQ 4 units ACHS ELYSIA Administration Protocol Lisinopril 2.5 mg 03/11/20 10:00 03/11/20 09:45 Prinivil PO 2.5 mg DAILY ELYSIA Administration Metoprolol Tartrate 12.5 mg 03/10/20 22:00 03/11/20 09:46 Lopressor - PO 12.5 mg BID ELYSIA Administration Nystatin 1 applic 03/11/20 15:00 Nystop Powder - TP DAILY [facility] ASSESSMENT/PLAN: 64 YO M PMH s/p CABG (3 vessel) in 2016, 6 cardiac stents (last stenet 1 year ago, currently on Eliquis and aspirin), DM, HTN, afib, iron deficiency anemia, & CAD p/w drainage of L foot ulcer at site of previous amputation from 01/23/2020. Admitted for wound management and to r/o osteomyelitis. #Left foot ulcer -Podiatry c/s appreciated. Once cleared by vascular, consider Transmetatarsal amputation VS. secondary debridement. Eliquis held today for 2 days if debridement on Monday to avoid bleeding. -ID (Dr Hair) & vascular (Dr Dangelo) consulted -foot x-ray: no evidence of acute osteomyleitis -MRI: osteomyelitis of 2nd metatarsal edema bone marrow distal aspect of 3rd metatarsal bone compatible w/ osteomyelitis -wound cx: group D strep & pseudomonas -c/w zosyn #Afib, CAD (s/p CABG, stent) -c/w home med of apixiban (5 mg PO BID) & ASA (81 mg PO daily) -EKG: Irregularly irregular, rate of 81; Rightward axis #DM -ISS -BGM #HTN -will c/w home medication of lisinopril 2.5 mg PO daily & Lasix because at baseline Cr. Will monitor Cr -c/w metoprolol #CKD Cr baseline 1.7. Today's Cr 1.8. will monitor Cr. d/c lasix if Cr increases #DVT ppx - SCD #FEN no fluids monitor w/ BMP diabetic/sodium controlled diet Visit type - Emergency Visit Emergency Visit: Yes ED Registration Date: 03/10/20 Care time: The patient presented to the Emergency Department on the above date and was hospitalized for further evaluation of their emergent condition. - New Patient This patient is new to me today: No - Critical Care Critical Care patient: No ATTENDING PHYSICIAN STATEMENT I saw and evaluated the patient. I reviewed the resident's note and discussed the case with the resident. I agree with the resident's findings and plan as documented. SUBJECTIVE: OBJECTIVE: ASSESSMENT AND PLAN:
--- NOTE | 2020-03-11 19:10 | CONS ---
DATE OF CONSULTATION: DATE OF DICTATION: 03/11/2020 INFECTIOUS DISEASE CONSULTATION HISTORY OF PRESENT ILLNESS: This is a 64-year-old man. He has a history of longstanding diabetes for over 20 years, peripheral vascular disease, and coronary artery disease. He underwent angioplasty on January 20 of this year of his left leg followed by a 2nd toe amputation of the left foot on the . He had clean margins and was discharged home on Levaquin. He now returns to wound care yesterday with worsening of the ulcer. The wound has dehisced and has not closed, and he was admitted for further evaluation. He had an MRI done overnight that shows osteomyelitis in the distal part of the metatarsal bone of the 2nd toe and of the 3rd metatarsal as well. He has no fevers or chills and otherwise feels well. PAST MEDICAL HISTORY: Notable for coronary artery disease. He has had stents done last in 2018. He has history of diabetes, hypertension, atrial fibrillation, anemia, coronary artery disease, and peripheral vascular disease status post angioplasty. SURGICAL HISTORY: He had 3-vessel bypass in 2015. He had 6 stents, and he had the 2nd toe amputated in January of this year. SOCIAL HISTORY: He is retired. 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 He stopped smoking 30 years ago. No alcohol or drug use. No known drug allergies. FAMILY HISTORY: Notable for diabetes, coronary artery disease, mother with breast cancer. MEDICATION: Medications at home include: 1. Jardiance. 2. Lasix. 3. Zestril. 4. Januvia. 5. Baclofen. 6. Eliquis. 7. Aspirin. 8. Lipitor. 9. Colace. 10. Feosol. 11. Lopressor. REVIEW OF SYSTEMS: He is feeling well. He denies any chest pain, abdominal pain. No fevers or chills. He notes he has had some drainage and change at the amputation site in the last 48 hours and has had no associated fevers or chills. PHYSICAL EXAMINATION: General: He is a pleasant man in no acute distress. Vital Signs: T-max of 99.2, current temperature 98.9, pulse 96, blood pressure 118/66, respiratory rate 18, saturating 96% on room air. HEENT: Normocephalic. Eyes are anicteric. Neck: Supple. Lungs: Clear to auscultation. Heart: Regular rate and rhythm. Abdomen: Soft, nontender. Extremities: Notable for open ulcer at the base of the 2nd toe. He has got some yellow exudate at that site. There is exposed bone. There is no pus, and there is no erythema. He has got an eschar on the medial aspect of the 3rd digit abutting where the 2nd toe should be. LABORATORY: Notable for white count of 10, hemoglobin 12.3, platelets 228. BUN and creatinine are 32 and 1.8. LFTs are normal. COVID serology is pending. Prior bone culture and wound culture from January grew pseudomonas pansensitive and culture of the wound again is growing a pseudomonas and a group B strep. IMPRESSION: In summary this is a 64-year-old man with osteomyelitis status post amputation of the second toe of the left foot January 22. Status post angioplasty, diabetes, peripheral vascular disease, coronary artery disease, chronic kidney disease. MRI with evidence of osteo. Would continue Zosyn, vancomycin by levels. Follow up with vascular and podiatry, and will check a sedimentation rate and a C-reactive protein to trend. Further recommendations to follow. Delbert [id number]
[2020-03-11] MEDS: NYSTATIN POWDER 100,000 UNITS/GM - 15 GM TOPICAL POWDER TP SCH (19:21)
[2020-03-11] MEDS ORDERED: INSULIN (NOVOLOG) ASPART 100 UNITS/ML 10ML VIAL ONE (20:55)
[2020-03-11] MEDS: ATORVASTATIN CA 80 MG TABLET (FP) PO SCH (21:08)
[2020-03-12] MEDS ORDERED: PIPERACILLIN/TAZOBACTAM 3.375 GM VIAL IVPB ONE ×3 (02:16→17:56)
[2020-03-12] MEDS ORDERED: DEXTROSE 5%-WATER - 50 ML IVPB ONE ×3 (02:16→17:56)
[2020-03-12] MEDS: PIPERACILLIN/TAZOB 3.375 GM 3.375 GM in DEXTROSE 5%-WATER - 50 ML IVPB SCH ×3 (02:40→18:00)
[2020-03-12] MEDS: FUROSEMIDE 40 MG TABLET (FP) PO SCH ×2 (05:39→14:34)
[2020-03-12] MEDS: INSULIN SLIDING SCALE (NOVOLOG) 1 VIAL SQ SCH ×4 (06:12→22:09)
[2020-03-12 08:04] LABS: BASO % 1.2 % (0-2.0); EOS % 8.6 % (0-4.5); HEMATOCRIT 37.7 % (35.4-49); HEMOGLOBIN 12.1 GM/dL (11.7-16.9); LYMPH % 15.2 % (8-40); MEAN CELL VOLUME 78.1 fl (80-96); MEAN PLT VOLUME 8.5 fl (7.5-11.1); MONO % 12.6 % (3.8-10.2); NEUT % 62.4 % (42.8-82.8); PLATELET COUNT 212 K/MM3 (134-434); RBC 4.83 M/mm3 (4.00-5.60); RDW 19.7 % (11.9-15.9); WHITE BLOOD COUNT 8.9 K/mm3 (4.0-10.0)
[2020-03-12 08:37] LABS: BILIRUBIN,TOTAL 1.2 mg/dL (0.2-1); BLOOD UREA NITROGEN 32.4 mg/dL (7-18); CALCIUM 8.6 mg/dL (8.5-10.1); CREATININE 1.8 mg/dL (0.55-1.3); MAGNESIUM 2.4 mg/dL (1.8-2.4); PHOSPHOROUS 4.1 mg/dL (2.5-4.9); POTASSIUM 4.3 mmol/L (3.5-5.1); TOT PROT 6.7 g/dl (6.4-8.2)
[2020-03-12] MEDS: DOCUSATE SODIUM 100 MG CAPSULE (FP) PO SCH ×2 (09:18→22:11)
[2020-03-12] MEDS: METOPROLOL TARTRATE 25 MG TABLET (FP) PO SCH ×2 (09:18→22:11)
[2020-03-12] MEDS: ASPIRIN 81 MG CHEWABLE TABLETS PO SCH (09:18)
[2020-03-12] MEDS: FERROUS SO4 325 MG TABLET (FP) PO SCH ×2 (09:18→22:11)
[2020-03-12] MEDS: LISINOPRIL 5 MG TABLET (FP) PO SCH (09:20)
[2020-03-12 09:59] LABS: ERYTHROCYTE SEDIMENTATION RATE 21 mm/hr (0-20)
--- NOTE | 2020-03-12 09:59 | PN ---
Progress Note (short form) - Note Progress Note: 64 year old diabetic male, history of CAD and PVD, presented to wound care yesterday with worsening diabetic ulcer left second ray. He is s/p left second digit amputation shortly after LLE angioplasty with Dr. Dangelo. Incision developed dehiscence and now he has exposed second metatarsal. Discussed TMA with daughter and patient yesterday with my partner dr. womack PMHx: CAD/ CABG, history of cardiac stent placement,s DM 2, hypertension, Atrial fib (?AC) iron deficiency anemia Meds: noted ALL: NKMA TAMMY: L foot: pedal pulses nonpalpable, TG wnl, CFT 3 seconds to remaining digits. There is a second ray diabetic ulcer all fibrotic slough, minimal granulation tissue, exposed second metatarsal. There is no purulent drainage, no fluctuance, no streaking ascending cellulitis, no signs of active infection. Mild tenderness to palpation. There is dry eschar to the medial aspect of the third digit. MRI: demonstrates osteomyelitis second metatarsal, third metatarsal Imp: 64 year old diabetic male with left second ray diabetic ulcer, osteomyelitis IV abx per infectious diseases needs vascular f/u then will discuss plans for TMA if there is enough blood flow
[2020-03-12] MEDS ORDERED: INSULIN (NOVOLOG) ASPART 100 UNITS/ML 10ML VIAL ONE ×4 (12:02→18:27)
--- NOTE | 2020-03-12 13:28 | PN ---
Progress Note (short form) - Note Progress Note: nocomplaints awaiting vascular eval Vital Signs Period Temp Pulse Resp BP Sys/Jiménez Pulse Ox Last 24 Hr 98.1 F-99.3 F 84-100 - 93-139/56-67 98 cor-rrr lungs clear abd soft,nt foot is wrapped CBC, BMP 03/12/20 07:15 03/12/20 07:15 Microbiology 03/10/20 13:00 Foot - Left Gram Stain - Final 03/10/20 13:00 Foot - Left Wound Culture - Final Pseudomonas Aeruginosa Enterococcus Faecalis 03/10/20 13:50 Blood - Peripheral Venous Blood Culture - Preliminary NO GROWTH OBTAINED AFTER 24 HOURS, INCUBATION TO CONTINUE FOR 4 DAYS. 03/10/20 13:00 Blood - Peripheral Venous Blood Culture - Preliminary NO GROWTH OBTAINED AFTER 24 HOURS, INCUBATION TO CONTINUE FOR 4 DAYS. 03/12/20 03/12/20 03/12/20 07:15 07:15 07:15 ESR 21 H C-Reactive Protein 2.3 H Random Vancomycin 8.5 osteomyelitis s/p amputation of second toe left foot 01/22-wound dehiscence s/p angioplasty 01/20 DM PVD CAD- history of cabg ckd mri with evidenc of osteomyelitis distal second toe and third toe continue zosyn vanco by levels-redose today f/u with vascular and podiatry Problem List - Problems (1) Osteomyelitis Code(s): M86.9 - OSTEOMYELITIS, UNSPECIFIED (2) PVD (peripheral vascular disease) Code(s): I73.9 - PERIPHERAL VASCULAR DISEASE, UNSPECIFIED (3) Diabetes Code(s): E11.9 - TYPE 2 DIABETES MELLITUS WITHOUT COMPLICATIONS (4) CAD (coronary artery disease) Code(s): I25.10 - ATHSCL HEART DISEASE OF [place] CORONARY ARTERY W/O ANG PCTRS (5) CKD (chronic kidney disease) Code(s): N18.9 - CHRONIC KIDNEY DISEASE, UNSPECIFIED
[2020-03-12] MEDS ORDERED: VANCOMYCIN 1 GRAM (PRE-DOCKED) 1,000 MG/250 ML BAG IVPB ONE (13:29)
--- NOTE | 2020-03-12 16:20 | PN ---
Progress Note (short form) - Note Progress Note: Vascular Surgery Pt seen and examined with daughter at bedside. Pt with left second toe amp site with open wound. Here for IV antibiotics. Went over march 03 mary alice/arterial duplex with family. MARY ALICE is .8. No signs of any stenosis that need angioplasty. Pt has small vessel disease in the foot from DM. Went over options with the family. 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 Podiatry on the case. Cleared from a vascular standpoint for podiatry intervention. Samson Dangelo DO
--- NOTE | 2020-03-12 16:24 | PN ---
Teaching Attending Note Name of Resident: Love Handy ATTENDING PHYSICIAN STATEMENT I saw and evaluated the patient. I reviewed the resident's note and discussed the case with the resident. I agree with the resident's findings and plan as documented. SUBJECTIVE: no fever or chills. no pain, sen arount 9 am OBJECTIVE: NAd , awake, alert, CV: reg irreg , 2/6 SM at LLSB Abd: soft , NT, reducible umbilical hernia with no skin changes Ext : L foot edema , no erythema s/p amputation of 2nd toe with slough over site . no drainage expressed. DP 2+ b/l ASSESSMENT AND PLAN: 64 y/o man with h/o CAD, s/p stents, OM s/p L 2nd toe amputation 01/23/20, HTN, DM, anemia, A fib, who presented with discharge from L foot wound. he was found to have OM 1- OM of the L 2nd and 3rd metatarsal heads. wound cx with pseudomonas and E Faecalis sensitive to PCN - cont zosyn and vanco. probably deescalate after bone cx is back -d/w surgical PA chata. seen by Dr. mcclure who recommended no vascular procedure . - plan for sx tomorrow . He will be considered low risk for this intermediate risk procedure. has CAD but EKG with no ischemic changes, has A fib and will increase his BB to optimize his HR . BP is controlled. Recs not to hold BB tomorrow before the surgery. Avoid QTc prolonging agents during anesthesia. Dr. Ibrahim notified . cont to hold eliquis till tomorrow. will resume if homeostasis is achieved. patient accepts risk for stroke in mean time 2- H/o A fib: cont to hold eliquis, and increase lopressor 3- CAD : cont BB , ASa 4- DM : Hold januvia and jardiance and cont SSI 5- CKD: Cr around base line . cont lisinopril 6- HTN : cont lopressor and lisinopril HLOC
[2020-03-12] MEDS: NYSTATIN POWDER 100,000 UNITS/GM - 15 GM TOPICAL POWDER TP SCH (18:02)
--- NOTE | 2020-03-12 21:13 | PN ---
Physical Exam: SUBJECTIVE: No overnight events. Patient seen and examined. NAD. ROS negative OBJECTIVE: Vital Signs Period Temp Pulse Resp BP Sys/Jiménez Pulse Ox Last 24 Hr 98.1 F-99.4 F 84-108 18-20 93-131/56-72 97 GENERAL: Awake, alert, and fully oriented, in no acute distress. HEENT: NT/NC; conjunctiva clear. No lid lag, MMM NECK: Normal range of motion, supple without lymphadenopathy, JVD, or masses. LUNGS: Breath sounds equal, clear to auscultation bilaterally. No wheezes, and no crackles. No accessory muscle use. HEART: irregularly irregular, normal S1 and S2 without murmur, rub or gallop. MIDLINE surgical incision scar ABDOMEN: Soft, nontender,normoactive bowel sounds, no guarding, no rebound, U mbilical hernia MUSCULOSKELETAL: Normal range of motion at all joints. No bony deformities or tenderness. No CVA tenderness. UPPER EXTREMITIES: 2+ pulses, warm, well-perfused. No cyanosis. No clubbing. No peripheral edema. Abrasions on R arm that pt attributes to rough sponge he's used for bathing since he didn't take a bath due to his ulcer LOWER EXTREMITIES: 2+ pulses, warm, well-perfused. Non-pitting edema b/l. Skin ulcers over shins b/l. scar on L leg from vessel harvesting for CABG. Minimal serous drainage of ulcer at 2nd metatarsal of L foot. Ulcer is white in color. No erythema. Right: DP 2+, TP 2+ Left: DP 2+. TP 2+ NEUROLOGICAL: Normal speech. PSYCHIATRIC: Cooperative. Good eye contact. Appropriate mood and affect. SKIN: Warm, dry, normal turgor, no rashes or lesions noted, normal capillary refill. Laboratory Results - last 24 hr 03/10/20 03/11/20 03/12/20 13:40 21:07 06:10 WBC RBC Hgb Hct MCV MCH MCHC RDW Plt Count MPV Absolute Neuts (auto) Neutrophils % Lymphocytes % Monocytes % Eosinophils % Basophils % Nucleated RBC % ESR Sodium Potassium Chloride Carbon Dioxide Anion Gap BUN Creatinine Est GFR (CKD-EPI)AfAm Est GFR (CKD-EPI)NonAf POC Glucometer 225 172 Random Glucose Calcium Phosphorus Magnesium Total Bilirubin AST ALT Alkaline Phosphatase C-Reactive Protein Total Protein Albumin Random Vancomycin COVID-19 (SANJIV) Not detected 03/12/20 03/12/20 03/12/20 07:15 07:15 07:15 WBC 8.9 RBC 4.83 Hgb 12.1 Hct 37.7 MCV 78.1 L MCH 25.0 L MCHC 32.0 RDW 19.7 H Plt Count 212 MPV 8.5 Absolute Neuts (auto) 5.6 Neutrophils % 62.4 Lymphocytes % 15.2 D Monocytes % 12.6 H Eosinophils % 8.6 H D Basophils % 1.2 Nucleated RBC % 0 ESR 21 H Sodium 137 Potassium 4.3 Chloride 102 Carbon Dioxide 26 Anion Gap 8 BUN 32.4 H Creatinine 1.8 H Est GFR (CKD-EPI)AfAm 45.41 Est GFR (CKD-EPI)NonAf 39.18 POC Glucometer Random Glucose 140 H Calcium 8.6 Phosphorus 4.1 Magnesium 2.4 Total Bilirubin 1.2 H AST 10 L ALT 22 Alkaline Phosphatase 81 C-Reactive Protein 2.3 H Total Protein 6.7 Albumin 3.0 L Random Vancomycin 8.5 COVID-19 (SANJIV) 03/12/20 03/12/20 12:23 17:50 WBC RBC Hgb Hct MCV MCH MCHC RDW Plt Count MPV Absolute Neuts (auto) Neutrophils % Lymphocytes % Monocytes % Eosinophils % Basophils % Nucleated RBC % ESR Sodium Potassium Chloride Carbon Dioxide Anion Gap BUN Creatinine Est GFR (CKD-EPI)AfAm Est GFR (CKD-EPI)NonAf POC Glucometer 196 185 Random Glucose Calcium Phosphorus Magnesium Total Bilirubin AST ALT Alkaline Phosphatase C-Reactive Protein Total Protein Albumin Random Vancomycin COVID-19 (SANJIV) Active Medications Generic Name Dose Route Start Last Admin Trade Name Gersonq PRN Reason Stop Dose Admin Acetaminophen 650 mg 03/10/20 17:36 Tylenol - PO Q6H PRN Fever Or Pain Apixaban 5 mg 03/12/20 22:00 Eliquis - PO BID ELYSIA Aspirin 81 mg 03/11/20 10:00 03/12/20 09:18 Asa - PO 81 mg DAILY ELYSIA Administration Atorvastatin Calcium 80 mg 03/10/20 22:00 03/11/20 21:08 Lipitor - PO 80 mg HS ELYSIA Administration Docusate Sodium 100 mg 03/10/20 22:00 03/12/20 09:18 Colace - PO 100 mg BID ELYSIA Administration Ferrous Sulfate 325 mg 03/10/20 22:00 03/12/20 09:18 Feosol - PO 325 mg BID ELYSIA Administration Furosemide 40 mg 03/11/20 06:00 03/12/20 14:34 Lasix - PO 40 mg BIDLASIX ELYSIA Administration Piperacillin Sod/Tazobactam 50 mls @ 100 mls/hr 03/11/20 18:00 03/12/20 18:00 Sod 3.375 gm/ Dextrose IVPB 100 mls/hr Q8H-IV ELYSIA Administration Protocol Insulin Aspart 0 vial 03/10/20 22:00 03/12/20 17:51 Novolog Vial Sliding Scale - SQ 2 units ACHS ELYSIA Administration Protocol Lisinopril 2.5 mg 03/11/20 10:00 03/12/20 09:20 Prinivil PO Not Given DAILY ELYSIA Metoprolol Tartrate 25 mg 03/12/20 22:00 Lopressor - PO BID ELYSIA Nystatin 1 applic 03/12/20 15:28 Nystop Powder - TP DAILY ELYSIA ASSESSMENT/PLAN: 64 YO M PMH s/p CABG (3 vessel) in 2015, 6 cardiac stents (last stenet 1 year ago, currently on Eliquis and aspirin), DM, HTN, afib, iron deficiency anemia, & CAD p/w drainage of L foot ulcer at site of previous amputation from 01/23/2020. Admitted for wound management and to r/o osteomyelitis. Now being managed for osteomyelitis. #Left foot ulcer: Osteomyelitis -MRI: osteomyelitis of 2nd metatarsal edema bone marrow distal aspect of 3rd metatarsal bone compatible w/ osteomyelitis -wound cx: group D strep (E faecalis) sensitive to penicllin & pseudomonas -c/w zosyn -vascular (Dr Dangelo) c/s appreciated. recommended no vascular sgy; cleared pt; TMA recommended -Podiatry c/s appreciated. Transmetatarsal amputation VS. secondary debridement. Podiatry will discuss & look at OR schedule. Will hold Eliquis if procedure is planned to avoid bleeding. -f/u ID (Dr Hair) #Afib, CAD (s/p CABG, stent) -c/w home med of apixiban (5 mg PO BID) & ASA (81 mg PO daily) -EKG: Irregularly irregular, rate of 81; Rightward axis -eliquis restarted b/c no sgy tomorrow #DM -ISS -BGM #HTN -will c/w home medication of lisinopril 2.5 mg PO daily & Lasix because at baseline Cr. Will monitor Cr -c/w metoprolol #CKD Cr baseline 1.7. Today's Cr 1.8. will monitor Cr. d/c lasix if Cr increases #DVT ppx - SCD #FEN no fluids monitor w/ BMP diabetic/sodium controlled diet Visit type - Emergency Visit Emergency Visit: Yes ED Registration Date: 03/10/20 Care time: The patient presented to the Emergency Department on the above date and was hospitalized for further evaluation of their emergent condition. - New Patient This patient is new to me today: No - Critical Care Critical Care patient: No ATTENDING PHYSICIAN STATEMENT I saw and evaluated the patient. I reviewed the resident's note and discussed the case with the resident. I agree with the resident's findings and plan as documented. SUBJECTIVE: OBJECTIVE: ASSESSMENT AND PLAN:
[2020-03-12] MEDS: ATORVASTATIN CA 80 MG TABLET (FP) PO SCH (22:11)
[2020-03-12] MEDS: APIXABAN 5 MG TABLET PO SCH (22:11)
[2020-03-13] MEDS ORDERED: PIPERACILLIN/TAZOBACTAM 3.375 GM VIAL IVPB ONE ×3 (02:13→17:41)
[2020-03-13] MEDS ORDERED: DEXTROSE 5%-WATER - 50 ML IVPB ONE ×3 (02:13→17:41)
[2020-03-13] MEDS: PIPERACILLIN/TAZOB 3.375 GM 3.375 GM in DEXTROSE 5%-WATER - 50 ML IVPB SCH ×3 (02:32→18:01)
[2020-03-13] MEDS: FUROSEMIDE 40 MG TABLET (FP) PO SCH ×2 (05:55→14:50)
[2020-03-13] MEDS: INSULIN SLIDING SCALE (NOVOLOG) 1 VIAL SQ SCH ×4 (06:19→21:12)
--- NOTE | 2020-03-13 07:21 | PN ---
Progress Note (short form) - Note Progress Note: 64 year old diabetic male, history of CAD and PVD, presented to wound care with worsening diabetic ulcer left second ray. He is s/p left second digit amputation shortly after LLE angioplasty with Dr. Dangelo. Incision developed dehiscence and now he has exposed second metatarsal. Saw Dr. Dangelo yesterday. PMHx: CAD/ CABG, history of cardiac stent placement,s DM 2, hypertension, Atrial fib (?AC) iron deficiency anemia Meds: noted ALL: NKMA TAMMY: L foot: pedal pulses nonpalpable, TG wnl, CFT 3 seconds to remaining digits. There is a second ray diabetic ulcer all fibrotic slough, minimal granulation tissue, exposed second metatarsal. There is no purulent drainage, no fluctuance, no streaking ascending cellulitis, no signs of active infection. Mild tenderness to palpation. There is dry eschar to the medial aspect of the third digit. MRI: demonstrates osteomyelitis second metatarsal, third metatarsal Imp: 64 year old diabetic male with left second ray diabetic ulcer, osteomyelitis evaluated and reviewed cleared from a vascular standpoint for a TMA will plan for intervention on monday morning hold anticoags Covid testing NPO midnight on monday
[2020-03-13] MEDS ORDERED: PT OWN MED DRAWER 7, Y5N ONE (08:43)
[2020-03-13] MEDS: LISINOPRIL 5 MG TABLET (FP) PO SCH (09:31)
[2020-03-13] MEDS: APIXABAN 5 MG TABLET PO SCH ×2 (09:33→21:12)
[2020-03-13] MEDS: METOPROLOL TARTRATE 25 MG TABLET (FP) PO SCH ×2 (09:33→21:11)
[2020-03-13] MEDS: ASPIRIN 81 MG CHEWABLE TABLETS PO SCH (09:33)
[2020-03-13] MEDS: FERROUS SO4 325 MG TABLET (FP) PO SCH ×2 (09:33→21:11)
[2020-03-13] MEDS: DOCUSATE SODIUM 100 MG CAPSULE (FP) PO SCH ×2 (09:33→21:14)
[2020-03-13 09:37] LABS: BASO % 1.1 % (0-2.0); HEMATOCRIT 37.8 % (35.4-49); HEMOGLOBIN 12.3 GM/dL (11.7-16.9); LYMPH % 15.7 % (8-40); MCH 25.1 pg (25.7-33.7); MCHC 32.5 g/dl (32.0-35.9); MEAN CELL VOLUME 77.2 fl (80-96); MEAN PLT VOLUME 8.5 fl (7.5-11.1); MONO % 13.2 % (3.8-10.2); PLATELET COUNT 220 K/MM3 (134-434); RDW 19.9 % (11.9-15.9); WHITE BLOOD COUNT 8.9 K/mm3 (4.0-10.0)
[2020-03-13 10:11] LABS: POTASSIUM 4.2 mmol/L (3.5-5.1)
[2020-03-13 10:24] LABS: BILIRUBIN,TOTAL 1.7 mg/dL (0.2-1); CALCIUM 8.8 mg/dL (8.5-10.1); CREATININE 1.6 mg/dL (0.55-1.3); MAGNESIUM 2.3 mg/dL (1.8-2.4); PHOSPHOROUS 3.8 mg/dL (2.5-4.9); TOT PROT 6.7 g/dl (6.4-8.2)
--- NOTE | 2020-03-13 13:25 | PN ---
Progress Note (short form) - Note Progress Note: no complaints Vital Signs Period Temp Pulse Resp BP Sys/Jiménez Pulse Ox Last 24 Hr 97.6 F-99.4 F 85-108 18-20 97-131/53-75 97 cor-rrr lungs clear abd soft,nt ext open wound on foot, no drainage mild erythema CBC, BMP 03/13/20 08:55 03/13/20 08:55 Microbiology 03/10/20 13:50 Blood - Peripheral Venous Blood Culture - Preliminary NO GROWTH OBTAINED AFTER 48 HOURS, INCUBATION TO CONTINUE FOR 3 DAYS. 03/10/20 13:00 Blood - Peripheral Venous Blood Culture - Preliminary NO GROWTH OBTAINED AFTER 48 HOURS, INCUBATION TO CONTINUE FOR 3 DAYS. 03/10/20 13:00 Foot - Left Gram Stain - Final 03/10/20 13:00 Foot - Left Wound Culture - Final Pseudomonas Aeruginosa Enterococcus Faecalis a/p Plan for TMA on Monday osteomyelitis s/p amputation of second toe left foot 01/22-wound dehiscence s/p angioplasty 01/20 DM PVD CAD- history of cabg ckd mri with evidenc of osteomyelitis distal second toe and third toe continue vanco/zosyn pending surgery Problem List - Problems (1) Osteomyelitis Code(s): M86.9 - OSTEOMYELITIS, UNSPECIFIED (2) PVD (peripheral vascular disease) Code(s): I73.9 - PERIPHERAL VASCULAR DISEASE, UNSPECIFIED (3) Diabetes Code(s): E11.9 - TYPE 2 DIABETES MELLITUS WITHOUT COMPLICATIONS (4) CAD (coronary artery disease) Code(s): I25.10 - ATHSCL HEART DISEASE OF [place] CORONARY ARTERY W/O ANG PCTRS (5) CKD (chronic kidney disease) Code(s): N18.9 - CHRONIC KIDNEY DISEASE, UNSPECIFIED
[2020-03-13] MEDS: VANCOMYCIN 1 GRAM (PRE-DOCKED) 1,000 MG/250 ML BAG IVPB SCH (14:47)
[2020-03-13 15:11] LABS: BILIRUBIN,DIRECT 0.5 mg/dL (0.0-0.2)
[2020-03-13] MEDS: NYSTATIN POWDER 100,000 UNITS/GM - 15 GM TOPICAL POWDER TP SCH (15:55)
--- NOTE | 2020-03-13 17:53 | PN ---
Teaching Attending Note Name of Resident: Andrew Partida ATTENDING PHYSICIAN STATEMENT I saw and evaluated the patient. I reviewed the resident's note and discussed the case with the resident. I agree with the resident's findings and plan as documented. SUBJECTIVE: No fever or chills. no pain . no CP . OBJECTIVE: NAd , awake, alert, CV: irreg irreg , 2/6 SM at LLSB Ext : L foot edema , no erythema .s/p amputation of 2nd toe with slough over site . no drainage expressed. DP 2+ b/l. ASSESSMENT AND PLAN: 64 y/o man with h/o CAD, s/p stents, OM s/p L 2nd toe amputation 01/23/20, HTN, DM, anemia, A fib, who presented with discharge from L foot wound. he was found to have OM 1- OM of the L 2nd and 3rd metatarsal heads. wound cx with pseudomonas and E Faecalis sensitive to PCN - cont zosyn and vanco. - d/w podiatry. Sx planned on Monday. will hold eliquis after tomorow's dose 2- H/o A fib: cont lopressor and eliquis 3- CAD: cont BB, ASA 4- DM: Hold januvia and jardiance and cont SSI. 5- CKD: Cr around base line. cont lisinopril 6- HTN : cont lopressor and lisinopril HLOC ASSESSMENT AND PLAN:
[2020-03-13] MEDS ORDERED: INSULIN (NOVOLOG) ASPART 100 UNITS/ML 10ML VIAL ONE (21:01)
[2020-03-13] MEDS: ATORVASTATIN CA 80 MG TABLET (FP) PO SCH (21:12)
--- NOTE | 2020-03-13 22:10 | PN ---
Physical Exam: SUBJECTIVE: No overnight events. Patient seen and examined. NAD. ROS negative OBJECTIVE: Vital Signs Period Temp Pulse Resp BP Sys/Jiménez Pulse Ox Last 24 Hr 98.4 F-99.3 F 85-107 18-18 97-126/53-83 97 GENERAL: Awake, alert, and fully oriented, in no acute distress. HEENT: NT/NC; conjunctiva clear. No lid lag, MMM NECK: Normal range of motion, supple without lymphadenopathy, JVD, or masses. LUNGS: Breath sounds equal, clear to auscultation bilaterally. No wheezes, and no crackles. No accessory muscle use. HEART: irregularly irregular, normal S1 and S2 without murmur, rub or gallop. MIDLINE surgical incision scar ABDOMEN: Soft, nontender,normoactive bowel sounds, no guarding, no rebound, Um bilical hernia MUSCULOSKELETAL: Normal range of motion at all joints. No bony deformities or tenderness. No CVA tenderness. UPPER EXTREMITIES: 2+ pulses, warm, well-perfused. No cyanosis. No clubbing. No peripheral edema. Abrasions on R arm that pt attributes to rough sponge he's used for bathing since he didn't take a bath due to his ulcer LOWER EXTREMITIES: 2+ pulses, warm, well-perfused. Non-pitting edema b/l. Skin ulcers over shins b/l. scar on L leg from vessel harvesting for CABG. Minimal serous drainage of ulcer at 2nd metatarsal of L foot. Ulcer was darker in color. No erythema. Right: DP 2+, TP 2+ Left: DP 1+. TP 1+ NEUROLOGICAL: Normal speech. PSYCHIATRIC: Cooperative. Good eye contact. Appropriate mood and affect. SKIN: Warm, dry, normal turgor, no rashes or lesions noted, normal capillary refill. Laboratory Results - last 24 hr 03/13/20 03/13/20 03/13/20 05:46 08:55 08:55 WBC 8.9 RBC 4.90 Hgb 12.3 Hct 37.8 MCV 77.2 L MCH 25.1 L MCHC 32.5 RDW 19.9 H Plt Count 220 MPV 8.5 Absolute Neuts (auto) 5.6 Neutrophils % 63.0 Lymphocytes % 15.7 Monocytes % 13.2 H Eosinophils % 7.0 H Basophils % 1.1 Nucleated RBC % 0 Sodium Potassium Chloride Carbon Dioxide Anion Gap BUN Creatinine Est GFR (CKD-EPI)AfAm Est GFR (CKD-EPI)NonAf POC Glucometer 117 Random Glucose Calcium Phosphorus Magnesium Total Bilirubin Direct Bilirubin AST ALT Alkaline Phosphatase Total Protein Albumin Random Vancomycin 11.1 03/13/20 03/13/20 03/13/20 08:55 12:06 16:45 WBC RBC Hgb Hct MCV MCH MCHC RDW Plt Count MPV Absolute Neuts (auto) Neutrophils % Lymphocytes % Monocytes % Eosinophils % Basophils % Nucleated RBC % Sodium 137 Potassium 4.2 Chloride 102 Carbon Dioxide 25 Anion Gap 10 BUN 30.0 H Creatinine 1.6 H Est GFR (CKD-EPI)AfAm 52.36 Est GFR (CKD-EPI)NonAf 45.18 POC Glucometer 190 206 Random Glucose 156 H Calcium 8.8 Phosphorus 3.8 Magnesium 2.3 Total Bilirubin 1.7 H Direct Bilirubin 0.5 H AST 11 L ALT 20 Alkaline Phosphatase 73 Total Protein 6.7 Albumin 3.0 L Random Vancomycin 03/13/20 21:09 WBC RBC Hgb Hct MCV MCH MCHC RDW Plt Count MPV Absolute Neuts (auto) Neutrophils % Lymphocytes % Monocytes % Eosinophils % Basophils % Nucleated RBC % Sodium Potassium Chloride Carbon Dioxide Anion Gap BUN Creatinine Est GFR (CKD-EPI)AfAm Est GFR (CKD-EPI)NonAf POC Glucometer 190 Random Glucose Calcium Phosphorus Magnesium Total Bilirubin Direct Bilirubin AST ALT Alkaline Phosphatase Total Protein Albumin Random Vancomycin Active Medications Generic Name Dose Route Start Last Admin Trade Name Freq PRN Reason Stop Dose Admin Acetaminophen 650 mg 03/10/20 17:36 Tylenol - PO Q6H PRN Fever Or Pain Apixaban 5 mg 03/12/20 22:00 03/13/20 21:12 Eliquis - PO 5 mg BID ELYSIA Administration Aspirin 81 mg 03/11/20 10:00 03/13/20 09:33 Asa - PO 81 mg DAILY ELYSIA Administration Atorvastatin Calcium 80 mg 03/10/20 22:00 03/13/20 21:12 Lipitor - PO 80 mg HS ELYSIA Administration Docusate Sodium 100 mg 03/10/20 22:00 03/13/20 21:14 Colace - PO 100 mg BID ELYSIA Administration Ferrous Sulfate 325 mg 03/10/20 22:00 03/13/20 21:11 Feosol - PO 325 mg BID ELYSIA Administration Furosemide 40 mg 03/11/20 06:00 03/13/20 14:50 Lasix - PO 40 mg BIDLASIX ELYSIA Administration Piperacillin Sod/Tazobactam 50 mls @ 100 mls/hr 03/11/20 18:00 03/13/20 18:01 Sod 3.375 gm/ Dextrose IVPB 100 mls/hr Q8H-IV ELYSIA Administration Protocol Vancomycin HCl 1,000 mg in 250 mls @ 200 mls/hr 03/13/20 13:15 03/13/20 14:47 Vancomycin (Pre-Docked) IVPB 200 mls/hr Q24H ELYSIA Administration Protocol Insulin Aspart 0 vial 03/10/20 22:00 03/13/20 21:12 Novolog Vial Sliding Scale - SQ 2 units ACHS ELYSIA Administration Protocol Lisinopril 2.5 mg 03/11/20 10:00 03/13/20 09:31 Prinivil PO 2.5 mg DAILY ELYSIA Administration Metoprolol Tartrate 25 mg 03/12/20 22:00 03/13/20 21:11 Lopressor - PO 25 mg BID ELYSIA Administration Nystatin 1 applic 03/12/20 15:28 03/13/20 15:55 Nystop Powder - TP 1 applic DAILY ELYSIA Administration ASSESSMENT/PLAN: 64 YO M PMH s/p CABG (3 vessel) in 2016, 6 cardiac stents (last stenet 1 year ago, currently on Eliquis and aspirin), DM, HTN, afib, iron deficiency anemia, & CAD p/w drainage of L foot ulcer at site of previous amputation from 01/23/2020. Admitted for wound management and to r/o osteomyelitis. Now being managed for osteomyelitis. #Left foot ulcer: Osteomyelitis -MRI: osteomyelitis of 2nd metatarsal edema bone marrow distal aspect of 3rd metatarsal bone compatible w/ osteomyelitis -wound cx: group D strep (E faecalis) sensitive to penicllin & pseudomonas -c/w zosyn & vanc -vascular (Dr Dangelo) c/s appreciated. recommended no vascular sgy; cleared pt; TMA recommended -Podiatry c/s appreciated. TMA Monday. NPO staring Midnight Monday. Eliquis will be held after tomorrow's dose. -COVID testing ordered #Afib, CAD (s/p CABG, stent) -c/w home med of apixiban (5 mg PO BID) & ASA (81 mg PO daily) -EKG: Irregularly irregular, rate of 81; Rightward axis -eliquis restarted b/c no sgy tomorrow #DM -ISS -BGM #HTN -will c/w home medication of lisinopril 2.5 mg PO daily & Lasix because at baseline Cr. Will monitor Cr -c/w metoprolol #CKD Cr baseline 1.7. Today's Cr 1.6. will monitor Cr. d/c lasix if Cr increases #DVT ppx - SCD #FEN no fluids monitor w/ BMP diabetic/sodium controlled diet Visit type - Emergency Visit Emergency Visit: Yes ED Registration Date: 03/10/20 Care time: The patient presented to the Emergency Department on the above date and was hospitalized for further evaluation of their emergent condition. - New Patient This patient is new to me today: No - Critical Care Critical Care patient: No ATTENDING PHYSICIAN STATEMENT I saw and evaluated the patient. I reviewed the resident's note and discussed the case with the resident. I agree with the resident's findings and plan as documented. SUBJECTIVE: OBJECTIVE: ASSESSMENT AND PLAN:
[2020-03-14] MEDS ORDERED: DEXTROSE 5%-WATER - 50 ML IVPB ONE ×3 (01:07→17:08)
[2020-03-14] MEDS ORDERED: PIPERACILLIN/TAZOBACTAM 3.375 GM VIAL IVPB ONE ×3 (01:07→17:08)
[2020-03-14] MEDS: PIPERACILLIN/TAZOB 3.375 GM 3.375 GM in DEXTROSE 5%-WATER - 50 ML IVPB SCH ×3 (01:22→17:17)
[2020-03-14] MEDS: INSULIN SLIDING SCALE (NOVOLOG) 1 VIAL SQ SCH ×4 (06:22→21:12)
[2020-03-14] MEDS: FUROSEMIDE 40 MG TABLET (FP) PO SCH ×2 (06:26→13:28)
--- NOTE | 2020-03-14 07:39 | PN ---
Progress Note (short form) - Note Progress Note: Podiatry F/U; Seen/evaluated at bedside NAD. Pain controlled, denies F/V/N/C/SOB/CP. Afebrile. MRI completed. On IV abx. TAMMY: L foot: pedal pulses nonpalpable, TG wnl, CFT brisk to remaining digits. There is a second ray diabetic ulcer with extensive slough, exposed second metatarsal stump. There is malodor present. There is no purulence, no fluctuance, no streaking ascending cellulitis, no soft tissue crepitus, no signs of acute infection. Mild tenderness to palpation. There is a medial third digit eschar present. MRI L foot: osteomyelitis second metatarsal remnant stump and third digit/met Wound Cx: enterococcus, pseudomonas Imp: 64 year old diabetic, PVD male with osteomyelitis left forefoot and second ray diabetic ulcer 1. IV abx per infectious disease 2. Continue local care 3. Discussed treatment options at length with patient and his daughter. Recommend transmetatarsal amputation given extent of small vessel disease. Patient is agreeable. 4. Plan for OR on Monday for transmetatarsal amputation. Vascular input appreciated. 5. Will follow Radha Ibrahim DPM
[2020-03-14] MEDS: METOPROLOL TARTRATE 25 MG TABLET (FP) PO SCH ×2 (09:58→21:11)
[2020-03-14] MEDS: LISINOPRIL 5 MG TABLET (FP) PO SCH (09:58)
[2020-03-14] MEDS: DOCUSATE SODIUM 100 MG CAPSULE (FP) PO SCH ×2 (09:58→21:11)
[2020-03-14] MEDS: ASPIRIN 81 MG CHEWABLE TABLETS PO SCH (09:58)
[2020-03-14] MEDS: APIXABAN 5 MG TABLET PO SCH (09:58)
[2020-03-14] MEDS: NYSTATIN POWDER 100,000 UNITS/GM - 15 GM TOPICAL POWDER TP SCH (09:59)
[2020-03-14] MEDS: FERROUS SO4 325 MG TABLET (FP) PO SCH ×2 (09:59→21:11)
[2020-03-14] MEDS ORDERED: INSULIN (NOVOLOG) ASPART 100 UNITS/ML 10ML VIAL ONE ×2 (11:51→20:50)
[2020-03-14] MEDS: VANCOMYCIN 1 GRAM (PRE-DOCKED) 1,000 MG/250 ML BAG IVPB SCH (13:28)
--- NOTE | 2020-03-14 14:48 | PN ---
Physical Exam: SUBJECTIVE: Patient seen and examined at bedside. pt has no acute complaints. denies n/v. denies cp, dizziness OBJECTIVE: Vital Signs Period Temp Pulse Resp BP Sys/Jiménez Pulse Ox Last 24 Hr 98.5 F-99.3 F 81-91 18-18 100-121/58-79 97-97 GENERAL: The patient is awake, alert, and fully oriented, in no acute distress. HEAD: Normal with no signs of trauma. LUNGS: Breath sounds equal, clear to auscultation bilaterallyno accessory muscle use. HEART: Regular rate and rhythm, S1, S2 without murmur ABDOMEN: Soft, nontender, nondistended, normoactive bowel sounds, no guarding EXTREMITIES: left second metatarsal diabetic ulcer almost entirely fibrotic slough, mild malodor present. There is no purulent drainage. 3rd digit eschar Laboratory Results - last 24 hr 03/13/20 03/13/20 03/13/20 08:55 16:45 21:09 Sodium 137 Potassium 4.2 Chloride 102 Carbon Dioxide 25 Anion Gap 10 BUN 30.0 H Creatinine 1.6 H Est GFR (CKD-EPI)AfAm 52.36 Est GFR (CKD-EPI)NonAf 45.18 POC Glucometer 206 190 Random Glucose 156 H Calcium 8.8 Phosphorus 3.8 Magnesium 2.3 Total Bilirubin 1.7 H Direct Bilirubin 0.5 H AST 11 L ALT 20 Alkaline Phosphatase 73 Total Protein 6.7 Albumin 3.0 L Active Medications Generic Name Dose Route Start Last Admin Trade Name Freq PRN Reason Stop Dose Admin Acetaminophen 650 mg 03/10/20 17:36 Tylenol - PO Q6H PRN Fever Or Pain Apixaban 5 mg 03/12/20 22:00 03/14/20 09:58 Eliquis - PO 5 mg BID ELYSIA Administration Aspirin 81 mg 03/11/20 10:00 03/14/20 09:58 Asa - PO 81 mg DAILY ELYSIA Administration Atorvastatin Calcium 80 mg 03/10/20 22:00 03/13/20 21:12 Lipitor - PO 80 mg HS ELYSIA Administration Docusate Sodium 100 mg 03/10/20 22:00 03/14/20 09:58 Colace - PO 100 mg BID ELYSIA Administration Ferrous Sulfate 325 mg 03/10/20 22:00 03/14/20 09:59 Feosol - PO 325 mg BID ELYSIA Administration Furosemide 40 mg 03/11/20 06:00 03/14/20 13:28 Lasix - PO 40 mg BIDLASIX ELYSIA Administration Piperacillin Sod/Tazobactam 50 mls @ 100 mls/hr 03/11/20 18:00 03/14/20 09:57 Sod 3.375 gm/ Dextrose IVPB 100 mls/hr Q8H-IV ELYSIA Administration Protocol Vancomycin HCl 1,000 mg in 250 mls @ 200 mls/hr 03/13/20 13:15 03/14/20 13:28 Vancomycin (Pre-Docked) IVPB 200 mls/hr Q24H ELYSIA Administration Protocol Insulin Aspart 0 vial 03/10/20 22:00 03/14/20 11:33 Novolog Vial Sliding Scale - SQ 2 units ACHS ELYSIA Administration Protocol Lisinopril 2.5 mg 03/11/20 10:00 03/14/20 09:58 Prinivil PO 2.5 mg DAILY ELYSIA Administration Metoprolol Tartrate 25 mg 03/12/20 22:00 03/14/20 09:58 Lopressor - PO 25 mg BID ELYSIA Administration Nystatin 1 applic 03/12/20 15:28 03/14/20 09:59 Nystop Powder - TP 1 applic DAILY ELYSIA Administration ASSESSMENT/PLAN: 64 yo M PMH CAD (s/p CABG, stents - last 02/2019) , DM, HTN, Afib ( on eliquis), iron deficiency anemia, prior anterior- fib angioplasty ( 01/21/20) and amputation 01/23/20.Pt is admitted for wound management/ possible amputation - r/o osteomyelitis Non-healing wound s/p L digit amputation, r/o OM - TMA for monday - will continue Vanc/ Zosyn day 4 - Dr. Dangelo consulted and aware CKD - at baseline CAD s/p CABG and stents - cont Asa, statin DM -ISS, BGM Afib - cont eliquis -BB increased 2/2 elevated HR Fe Deficiency - cont iron HTN - cont lisinopril and lopressor DVTppx: on eliquis. hold tonight for procedure Monday Dispo: med/ surg attempted to contact daughter Tiffany twice without answer. Visit type - Emergency Visit Emergency Visit: No - New Patient This patient is new to me today: No - Critical Care Critical Care patient: No - Discharge Referral Referred to [facility] Med [facility] No ATTENDING PHYSICIAN STATEMENT I saw and evaluated the patient. I reviewed the resident's note and discussed the case with the resident. I agree with the resident's findings and plan as documented. SUBJECTIVE: OBJECTIVE: ASSESSMENT AND PLAN:
--- NOTE | 2020-03-14 16:54 | PN ---
Teaching Attending Note Name of Resident: Angelica Fountain ATTENDING PHYSICIAN STATEMENT I saw and evaluated the patient. I reviewed the resident's note and discussed the case with the resident. I agree with the resident's findings and plan as documented. SUBJECTIVE: No fever or chills. No pain. NO SOB. No events over night . OBJECTIVE: NAd , awake, alert, CV: irreg irreg , 2/6 SM at [facility] Ext: L foot edema , no erythema. s/p amputation of 2nd toe with slough over site. no drainage expressed. DP 2+ b/l. ASSESSMENT AND PLAN: 64 y/o man with h/o CAD, s/p stents, OM s/p L 2nd toe amputation 01/23/20, HTN, DM, anemia, A fib, who presented with discharge from L foot wound. he was found to have OM. 1- OM of the L 2nd and 3rd metatarsal heads. wound cx with pseudomonas and E Faecalis sensitive to PCN - cont zosyn and vanco. - obtain vanco trough tomorrow 2- H/o A fib: cont lopressor and hold eliquis for procedure - HR is better controlled on increased dose of lopressor 3- CAD: cont BB, ASA ( confirmed that he is on asa ) 4- DM: Hold januvia and jardiance and cont SSI. 5- CKD: Cr around base line. cont lisinopril 6- HTN: cont lopressor and lisinopril HLOC ASSESSMENT AND PLAN:
[2020-03-14] MEDS: ATORVASTATIN CA 80 MG TABLET (FP) PO SCH (21:11)
[2020-03-15] MEDS ORDERED: PIPERACILLIN/TAZOBACTAM 3.375 GM VIAL IVPB ONE ×3 (00:43→17:58)
[2020-03-15] MEDS ORDERED: DEXTROSE 5%-WATER - 50 ML IVPB ONE ×3 (00:43→17:59)
[2020-03-15] MEDS: PIPERACILLIN/TAZOB 3.375 GM 3.375 GM in DEXTROSE 5%-WATER - 50 ML IVPB SCH ×3 (01:14→18:02)
[2020-03-15] MEDS: INSULIN SLIDING SCALE (NOVOLOG) 1 VIAL SQ SCH ×4 (06:24→21:09)
[2020-03-15] MEDS: FUROSEMIDE 40 MG TABLET (FP) PO SCH ×2 (06:24→13:45)
[2020-03-15 08:47] LABS: BASO % 1.3 % (0-2.0); EOS % 5.8 % (0-4.5); HEMATOCRIT 41.3 % (35.4-49); HEMOGLOBIN 13.1 GM/dL (11.7-16.9); LYMPH % 16.9 % (8-40); MCH 24.3 pg (25.7-33.7); MCHC 31.7 g/dl (32.0-35.9); MEAN CELL VOLUME 76.8 fl (80-96); MEAN PLT VOLUME 8.2 fl (7.5-11.1); MONO % 11.4 % (3.8-10.2); NEUT % 64.6 % (42.8-82.8); PLATELET COUNT 247 K/MM3 (134-434); RBC 5.38 M/mm3 (4.00-5.60); RDW 20.2 % (11.9-15.9); WHITE BLOOD COUNT 8.3 K/mm3 (4.0-10.0)
[2020-03-15 08:53] LABS: INR 1.58 (0.83-1.09); PROTHROMBIN TIME (PATIENT) 18.7 SEC (9.7-13.0)
[2020-03-15 09:11] LABS: BILIRUBIN,TOTAL 0.9 mg/dL (0.2-1); BLOOD UREA NITROGEN 24.7 mg/dL (7-18); CALCIUM 8.7 mg/dL (8.5-10.1); CREATININE 1.6 mg/dL (0.55-1.3); MAGNESIUM 2.2 mg/dL (1.8-2.4); PHOSPHOROUS 3.8 mg/dL (2.5-4.9); POTASSIUM 4.1 mmol/L (3.5-5.1)
[2020-03-15] MEDS: FERROUS SO4 325 MG TABLET (FP) PO SCH ×2 (09:30→21:08)
[2020-03-15] MEDS: LISINOPRIL 5 MG TABLET (FP) PO SCH (09:31)
[2020-03-15] MEDS: ASPIRIN 81 MG CHEWABLE TABLETS PO SCH (09:31)
[2020-03-15] MEDS: METOPROLOL TARTRATE 25 MG TABLET (FP) PO SCH ×2 (09:31→21:07)
[2020-03-15] MEDS: DOCUSATE SODIUM 100 MG CAPSULE (FP) PO SCH ×2 (09:31→21:09)
[2020-03-15] MEDS: NYSTATIN POWDER 100,000 UNITS/GM - 15 GM TOPICAL POWDER TP SCH (09:49)
--- NOTE | 2020-03-15 10:20 | PN ---
Progress Note (short form) - Note Progress Note: no complaints for OR in am Vital Signs Period Temp Pulse Resp BP Sys/Jiménez Pulse Ox Last 24 Hr 98.0 F-99.2 F 84-100 17-18 102-113/60-69 97-98 cor-rrr lungs clear abd soft,nt ext foot wound unchanged CBC, BMP 03/15/20 08:00 03/15/20 08:00 a/p Plan for TMA on Monday osteomyelitis s/p amputation of second toe left foot 01/22-wound dehiscence s/p angioplasty 01/20 DM PVD CAD- history of cabg ckd continue vanco/zosyn periop d/w hosptialist Problem List - Problems (1) Osteomyelitis Code(s): M86.9 - OSTEOMYELITIS, UNSPECIFIED (2) PVD (peripheral vascular disease) Code(s): I73.9 - PERIPHERAL VASCULAR DISEASE, UNSPECIFIED (3) Diabetes Code(s): E11.9 - TYPE 2 DIABETES MELLITUS WITHOUT COMPLICATIONS (4) CAD (coronary artery disease) Code(s): I25.10 - ATHSCL HEART DISEASE OF [place] CORONARY ARTERY W/O ANG PCTRS (5) CKD (chronic kidney disease) Code(s): N18.9 - CHRONIC KIDNEY DISEASE, UNSPECIFIED
[2020-03-15] MEDS: VANCOMYCIN 1 GRAM (PRE-DOCKED) 1,000 MG/250 ML BAG IVPB SCH (13:36)
--- NOTE | 2020-03-15 14:50 | PN ---
Progress Note (short form) - Note Progress Note: Subjective: no pain,no SOB, no fever or chills. Objective: Vital Signs: Last Vital Signs Temp Pulse Resp BP Pulse Ox 98.5 F 87 18 99/52 L 98 03/15/20 13:40 03/15/20 13:40 03/15/20 13:40 03/15/20 13:40 03/15/20 09:00 Laboratory Results - last 24 hr 03/14/20 03/14/20 03/15/20 16:07 21:09 06:23 WBC RBC Hgb Hct MCV MCH MCHC RDW Plt Count MPV Absolute Neuts (auto) Neutrophils % Lymphocytes % Monocytes % Eosinophils % Basophils % Nucleated RBC % PT with INR INR Sodium Potassium Chloride Carbon Dioxide Anion Gap BUN Creatinine Est GFR (CKD-EPI)AfAm Est GFR (CKD-EPI)NonAf POC Glucometer 224 147 124 Random Glucose Calcium Phosphorus Magnesium Total Bilirubin AST ALT Alkaline Phosphatase Total Protein Albumin Vancomycin Pre-Dose 03/15/20 03/15/20 03/15/20 08:00 08:00 08:00 WBC 8.3 RBC 5.38 Hgb 13.1 Hct 41.3 MCV 76.8 L MCH 24.3 L MCHC 31.7 L RDW 20.2 H Plt Count 247 MPV 8.2 Absolute Neuts (auto) 5.4 Neutrophils % 64.6 Lymphocytes % 16.9 Monocytes % 11.4 H Eosinophils % 5.8 H Basophils % 1.3 Nucleated RBC % 0 PT with INR INR Sodium 140 Potassium 4.1 Chloride 102 Carbon Dioxide 29 Anion Gap 8 BUN 24.7 H Creatinine 1.6 H Est GFR (CKD-EPI)AfAm 52.36 Est GFR (CKD-EPI)NonAf 45.18 POC Glucometer Random Glucose 115 H Calcium 8.7 Phosphorus 3.8 Magnesium 2.2 Total Bilirubin 0.9 AST 14 L ALT 27 Alkaline Phosphatase 74 Total Protein 7.0 Albumin 3.0 L Vancomycin Pre-Dose 12.4 H 03/15/20 03/15/20 08:00 11:41 WBC RBC Hgb Hct MCV MCH MCHC RDW Plt Count MPV Absolute Neuts (auto) Neutrophils % Lymphocytes % Monocytes % Eosinophils % Basophils % Nucleated RBC % PT with INR 18.70 H INR 1.58 H Sodium Potassium Chloride Carbon Dioxide Anion Gap BUN Creatinine Est GFR (CKD-EPI)AfAm Est GFR (CKD-EPI)NonAf POC Glucometer 168 Random Glucose Calcium Phosphorus Magnesium Total Bilirubin AST ALT Alkaline Phosphatase Total Protein Albumin Vancomycin Pre-Dose Physical Exam: NAD, awake, alert, CV: irreg irreg , 2/6 SM at [facility] Ext: L foot edema , no erythema. s/p amputation of 2nd toe with slough over site. ASSESSMENT AND PLAN: 64 y/o man with h/o CAD, s/p stents, OM s/p L 2nd toe amputation 01/23/20, HTN, DM, anemia, A fib, who presented with discharge from L foot wound. he was found to have OM. 1- OM of the L 2nd and 3rd metatarsal heads. - cont zosyn and vanco. - check INR tomorrow 2- H/o A fib: cont lopressor and hold eliquis for procedure - HR is better controlled but BP is low. will decrease lopressor dose to hoem dose ( h/o orthostatic hypotension and falls due to low BP ) 3- CAD: cont BB, ASA 4- DM: cont SSI. 5- CKD: Cr around base line. cont lisinopril 6- HTN: cont lopressor and lisinopril HLOC Visit type - Emergency Visit Emergency Visit: Yes ED Registration Date: 03/10/20 Care time: The patient presented to the Emergency Department on the above date and was hospitalized for further evaluation of their emergent condition. - New Patient This patient is new to me today: No - Critical Care Critical Care patient: No
[2020-03-15] MEDS: ATORVASTATIN CA 80 MG TABLET (FP) PO SCH (21:07)
[2020-03-16] MEDS ORDERED: PIPERACILLIN/TAZOBACTAM 3.375 GM VIAL IVPB ONE ×3 (00:49→18:05)
[2020-03-16] MEDS ORDERED: DEXTROSE 5%-WATER - 50 ML IVPB ONE ×3 (00:49→18:05)
[2020-03-16] MEDS: PIPERACILLIN/TAZOB 3.375 GM 3.375 GM in DEXTROSE 5%-WATER - 50 ML IVPB SCH ×3 (01:18→18:10)
[2020-03-16] MEDS: FUROSEMIDE 40 MG TABLET (FP) PO SCH ×2 (05:54→15:53)
[2020-03-16] MEDS: INSULIN SLIDING SCALE (NOVOLOG) 1 VIAL SQ SCH ×4 (06:12→21:04)
[2020-03-16 08:56] LABS: INR 1.39 (0.83-1.09); PROTHROMBIN TIME (PATIENT) 16.4 SEC (9.7-13.0)
[2020-03-16] MEDS: LISINOPRIL 5 MG TABLET (FP) PO SCH (09:04)
[2020-03-16] MEDS: FERROUS SO4 325 MG TABLET (FP) PO SCH ×2 (09:04→21:01)
[2020-03-16] MEDS: DOCUSATE SODIUM 100 MG CAPSULE (FP) PO SCH ×3 (09:05→21:45)
[2020-03-16] MEDS: METOPROLOL TARTRATE 25 MG TABLET (FP) PO SCH ×2 (09:05→21:01)
[2020-03-16] MEDS: NYSTATIN POWDER 100,000 UNITS/GM - 15 GM TOPICAL POWDER TP SCH (09:05)
[2020-03-16] MEDS: ASPIRIN 81 MG CHEWABLE TABLETS PO SCH (09:05)
[2020-03-16] MEDS ORDERED: LIDOCAINE HCL 2% (20ML MULTI-DOSE VIAL) ONE (09:09)
[2020-03-16] MEDS ORDERED: BUPIVACAINE HCL 50 ML ONE (12:32)
[2020-03-16] MEDS ORDERED: LIDOCAINE HCL 1%, 10 MG/ML (20ML VIAL) ONE (12:32)
[2020-03-16] MEDS ORDERED: PROPOFOL 20 ML ONE (12:55)
[2020-03-16] MEDS ORDERED: MIDAZOLAM HCL 2 MG/2 ML SINGLE DOSE VIAL ONE (12:56)
[2020-03-16] MEDS ORDERED: LIDOCAINE HCL 1%, 10 MG/ML (20ML VIAL) INF ONE (13:23)
--- NOTE | 2020-03-16 14:28 | OP ---
Operative Note - Note: Operative Date: 03/16/20 Pre-Operative Diagnosis: left foot diabetic ulcer, chronic osteomyelitis left forefoot Operation: left foot transmetatarsal amputation Post-Operative Diagnosis: Same as Pre-op Surgeon: Bob Ibrahim Anesthesia: Local, MAC Specimens Removed: forefoot, bone and soft tissue, left foot Estimated Blood Loss (mls): 30 Operative Report Dictated: Yes
[2020-03-16] MEDS ORDERED: ONDANSETRON 4 MG/2 ML VIAL IVPUSH PRN (14:30)
[2020-03-16] MEDS: VANCOMYCIN 1 GRAM (PRE-DOCKED) 1,000 MG/250 ML BAG IVPB SCH (15:53)
--- NOTE | 2020-03-16 16:22 | PN ---
Teaching Attending Note Name of Resident: Andrew Partida ATTENDING PHYSICIAN STATEMENT I saw and evaluated the patient. I reviewed the resident's note and discussed the case with the resident. I agree with the resident's findings and plan as documented. SUBJECTIVE: sen around 9 m no fever or chills. no pain , no N./V. no OSB OBJECTIVE: NAD, awake, alert, CV: irreg irreg , 2/6 SM at [facility]LS[facility] Ext: no edema on legs. L foot wound was not examined today ASSESSMENT AND PLAN: 64 y/o man with h/o CAD, s/p stents, OM s/p L 2nd toe amputation 01/23/20, HTN, DM, anemia, A fib, who presented with discharge from L foot wound. he was found to have OM. 1- OM of the L 2nd and 3rd metatarsal heads. - TMT amputation today - cont zosyn - will d/w Id if vanco is still neded ( E fecalis is sensitive to PCN ) - duration of Abx per ID, and depending on amputation margins - pain control after sx 2- H/o A fib: - cont lopressor at home dose and resume Eliquis 3- CAD: cont BB, ASA 4- DM: cont SSI. 5- CKD: Cr around base line. cont lisinopril 6- HTN: cont lopressor and lisinopril HLOC Dc in 10-2 days , depending on wound situation and bone cx If needed , he is agreeable to IV Abx at home rather than NH.
--- NOTE | 2020-03-16 19:51 | PN ---
Physical Exam: SUBJECTIVE: No overnight events. Patient seen and examined. NAD. c/o non-bloody diarrhea. OBJECTIVE: Vital Signs Period Temp Pulse Resp BP Sys/Jiménez Pulse Ox Last 24 Hr 97.4 F-98.6 F 67-95 16-18 100-118/68-84 97-100 GENERAL: Awake, alert, and fully oriented, in no acute distress. HEENT: NT/NC; conjunctiva clear. No lid lag, MMM NECK: Normal range of motion, supple without lymphadenopathy, JVD, or masses. LUNGS: Breath sounds equal, clear to auscultation bilaterally. No wheezes, and no crackles. No accessory muscle use. HEART: irregularly irregular, normal S1 and S2 without murmur, rub or gallop. MIDLINE surgical incision scar ABDOMEN: Soft, nontender,normoactive bowel sounds, no guarding, no rebound, Umbilical hernia MUSCULOSKELETAL: Normal range of motion at all joints. No bony deformities or tenderness. No CVA tenderness. UPPER EXTREMITIES: 2+ pulses, warm, well-perfused. No cyanosis. No clubbing. No peripheral edema. Abrasions on R arm that pt attributes to rough sponge he's used for bathing since he didn't take a bath due to his ulcer LOWER EXTREMITIES: 2+ pulses, warm, well-perfused. Non-pitting edema b/l. Skin ulcers over shins b/l. scar on L leg from vessel harvesting for CABG. No drainage of ulcer at 2nd metatarsal of L foot. No erythema. Right: DP 2+, TP 2+ Left: DP 1+. TP 1+ NEUROLOGICAL: Normal speech. PSYCHIATRIC: Cooperative. Good eye contact. Appropriate mood and affect. SKIN: Warm, dry, normal turgor, no rashes or lesions noted, normal capillary refill. Laboratory Results - last 24 hr 03/15/20 03/16/20 03/16/20 21:05 06:11 07:20 PT with INR 16.40 H INR 1.39 H POC Glucometer 171 138 03/16/20 03/16/20 11:20 16:03 PT with INR INR POC Glucometer 120 102 Active Medications Generic Name Dose Route Start Last Admin Trade Name Freq PRN Reason Stop Dose Admin Apixaban 5 mg 03/16/20 22:00 Eliquis - PO BID [facility] Aspirin 81 mg 03/17/20 10:00 Asa - PO DAILY [facility] Atorvastatin Calcium 80 mg 03/16/20 22:00 Lipitor - PO HS [facility]IA Docusate Sodium 100 mg 03/16/20 22:00 Colace - PO BID [facility] Fentanyl 25 mcg 03/16/20 14:30 Sublimaze Injection - IVPUSH [id number] PRN PAIN-PACU ORDER X 4 DOSES ONLY Ferrous Sulfate 325 mg 03/16/20 22:00 Feosol - PO BID [facility] Furosemide 40 mg 03/17/20 06:00 Lasix - PO BIDLASIX [facility]IA Piperacillin Sod/Tazobactam 50 mls @ 100 mls/hr 03/16/20 18:00 03/16/20 18:10 Sod 3.375 gm/ Dextrose IVPB 100 mls/hr Q8H-IV [facility]YSIA Administration Protocol Vancomycin HCl 1,000 mg in 250 mls @ 166.667 mls/hr 03/17/20 16:00 Vancomycin (Pre-Docked) IVPB Q24H [facility] Protocol Insulin Aspart 1 vial 03/16/20 16:30 03/16/20 16:05 Novolog Vial Sliding Scale - SQ Not Given ACHS [facility] Protocol Lisinopril 2.5 mg 03/17/20 10:00 Prinivil PO DAILY [facility] Metoprolol Tartrate 12.5 mg 03/16/20 22:00 Lopressor - PO BID [facility] Nystatin 1 applic 03/17/20 10:00 Nystop Powder - TP DAILY [facility] Ondansetron HCl 4 mg 03/16/20 14:30 Zofran Injection IVPUSH Q6H PRN NAUSEA AND/OR VOMITING Oxycodone HCl 5 mg 03/16/20 14:30 Roxicodone - PO Q4H PRN PAIN LEVEL 1-5 ASSESSMENT/PLAN: 64 YO M PMH s/p CABG (3 vessel) in 2016, 6 cardiac stents (last stenet 1 year ago, currently on Eliquis and aspirin), DM, HTN, afib, iron deficiency anemia, & CAD p/w drainage of L foot ulcer at site of previous amputation from 01/23/2020. Admitted for wound management and to r/o osteomyelitis. Now being managed for osteomyelitis. #Left foot ulcer: Osteomyelitis -MRI: osteomyelitis of 2nd metatarsal edema bone marrow distal aspect of 3rd metatarsal bone compatible w/ osteomyelitis -wound cx: group D strep (E faecalis) sensitive to penicllin & pseudomonas -c/w zosyn & vanc, but will f/u w/ ID if vancomycin is needed for E faecalis due to its pencillin sensitivity -TMA performed today #Afib, CAD (s/p CABG, stent) -c/w home med of apixiban (5 mg PO BID) & ASA (81 mg PO daily) -EKG: Irregularly irregular, rate of 81; Rightward axis -eliquis restarted b/c TMA was performed today #DM -ISS -BGM #HTN -will c/w home medication of lisinopril 2.5 mg PO daily & Lasix because at baseline Cr. Will monitor Cr -c/w metoprolol #CKD Cr baseline 1.7. Today's Cr 1.6. will monitor Cr. d/c lasix if Cr increases #Diarrhea -c. diff toxin & antigen ordered #DVT ppx - SCD #FEN no fluids monitor w/ BMP diabetic/sodium controlled diet #DISPO maintain med surg Visit type - Emergency Visit Emergency Visit: Yes ED Registration Date: 03/10/20 Care time: The patient presented to the Emergency Department on the above date and was hospitalized for further evaluation of their emergent condition. - New Patient This patient is new to me today: No - Critical Care Critical Care patient: No ATTENDING PHYSICIAN STATEMENT I saw and evaluated the patient. I reviewed the resident's note and discussed the case with the resident. I agree with the resident's findings and plan as documented. SUBJECTIVE: OBJECTIVE: ASSESSMENT AND PLAN:
--- NOTE | 2020-03-16 20:37 | OP ---
DATE OF OPERATION: 03/16/2020 PREOPERATIVE DIAGNOSIS: Left foot diabetic ulcer, osteomyelitis forefoot. POSTOPERATIVE DIAGNOSIS: Left foot diabetic ulcer, osteomyelitis forefoot. PROCEDURE: Left foot transmetatarsal amputation. SURGEON: Bob Ibrahim DPM. TROLLEY WORKER: None. ANESTHESIA: IV sedation with local. HEMOSTASIS: Surgical dissection. PATHOLOGY: Bone and soft tissue left foot. COMPLICATIONS: None. DESCRIPTION OF PROCEDURE: Patient was brought to the operating room and placed on the operating table in a supine position. I applied a pneumatic ankle tourniquet to the left ankle, however I did not use during the course of the procedure. Following induction of IV sedation, local anesthesia was achieved utilizing 20 mL of 2% lidocaine plain. The left foot was scrubbed, prepped, and draped in the usual sterile fashion. Attention was directed to the left second toe, where there was an exposed 2nd metatarsal ray diabetic ulcer with underlying osteomyelitis 2nd metatarsal, 3rd metatarsal, and 3rd digit. I began by performing a circumferential incision beginning at the most proximal edge of the diabetic ulcer extending distally and plantarly. Care was taken to preserve a longer plantar flap. The incision was deepened using sharp and blunt dissection, taking care to protect all vital neural and vascular structures. All bleeders were cauterized and ligated as appropriate. Next the toes 1, 3, 4 and 5 were disarticulated from their capsular and soft tissue attachments at the level of the metatarsophalangeal joint. The 1st, 3rd, 4th, and 5th digits were removed and sent to pathology for analysis. The 2nd digit was amputated from prior surgery. Next, a portion of bone from the remnant 3rd metatarsal was clipped using a rongeur for proximal bone pathology. Wound culture and bone culture were also obtained. Once the forefoot was disarticulated and all toes removed, I began periosteal incision over the 1st metatarsal, remnant 2nd metatarsal, and metatarsals 3 through 5 distally. The sagittal saw was used to resect the metatarsal heads 1 through 5 with care preserved to maintain the arc and parabola of the forefoot. The metatarsal heads were all subsequently removed 1 through 5, utilizing a sterile . Next, a nasal hand rasp was used to smooth the remnant metatarsal stumps. There were no bony prominences noted, and the underlying tissues looked healthy. All flexor and extensor tendons that were exposed were removed with a sterile scissors until there were none remaining visible. The surgical site was copiously irrigated with sterile saline. A 1/4-inch Tobin drain was implemented lateral to medial, exiting medially. The incision flap was coapted and maintained using 3-0 nylon in a simple interrupted suture fashion. Following the conclusion of the procedure, the surgical site was covered with Xeroform, and a sterile compressive dressing was applied to the left foot consisting of sterile gauze, ABD pad, Kerlix, and Anant wrap. The patient tolerated the procedure and anesthesia well without complications. He was transferred from the operating room to recovery with vital signs stable and neurovasculature intact to the left foot. LUIZ DAUGHERTY/[id number] cc: [facility]
[2020-03-16] MEDS ORDERED: INSULIN (NOVOLOG) ASPART 100 UNITS/ML 10ML VIAL ONE (20:57)
[2020-03-16] MEDS: oxyCODONE HCL 5 MG TABLET PO PRN (21:01)
[2020-03-16] MEDS: ATORVASTATIN CA 80 MG TABLET (FP) PO SCH (21:01)
[2020-03-16] MEDS: APIXABAN 5 MG TABLET PO SCH (21:01)
[2020-03-17] MEDS ORDERED: DEXTROSE 5%-WATER - 50 ML IVPB ONE ×3 (01:46→16:01)
[2020-03-17] MEDS ORDERED: PIPERACILLIN/TAZOBACTAM 3.375 GM VIAL IVPB ONE ×3 (01:46→16:01)
[2020-03-17] MEDS: oxyCODONE HCL 5 MG TABLET PO PRN ×4 (02:10→18:17)
[2020-03-17] MEDS: PIPERACILLIN/TAZOB 3.375 GM 3.375 GM in DEXTROSE 5%-WATER - 50 ML IVPB SCH ×3 (02:13→18:19)
[2020-03-17] MEDS: INSULIN SLIDING SCALE (NOVOLOG) 1 VIAL SQ SCH ×4 (06:14→21:17)
[2020-03-17] MEDS: FUROSEMIDE 40 MG TABLET (FP) PO SCH ×2 (06:14→14:21)
[2020-03-17 07:42] LABS: BASO % 0.6 % (0-2.0); EOS % 4.8 % (0-4.5); HEMATOCRIT 35.1 % (35.4-49); HEMOGLOBIN 11.2 GM/dL (11.7-16.9); LYMPH % 12.4 % (8-40); MCH 24.7 pg (25.7-33.7); MEAN CELL VOLUME 77.1 fl (80-96); MEAN PLT VOLUME 8.1 fl (7.5-11.1); MONO % 11.9 % (3.8-10.2); NEUT % 70.3 % (42.8-82.8); PLATELET COUNT 210 K/MM3 (134-434); RBC 4.55 M/mm3 (4.00-5.60); RDW 20.2 % (11.9-15.9); WHITE BLOOD COUNT 9.4 K/mm3 (4.0-10.0)
[2020-03-17 08:07] LABS: ALBUMIN 2.9 g/dl (3.4-5.0); BLOOD UREA NITROGEN 19.8 mg/dL (7-18); CALCIUM 8.5 mg/dL (8.5-10.1); CREATININE 1.4 mg/dL (0.55-1.3); PHOSPHOROUS 3.4 mg/dL (2.5-4.9); POTASSIUM 4.3 mmol/L (3.5-5.1); TOT PROT 6.6 g/dl (6.4-8.2)
[2020-03-17] MEDS: METOPROLOL TARTRATE 25 MG TABLET (FP) PO SCH ×2 (09:54→21:14)
[2020-03-17] MEDS: LISINOPRIL 5 MG TABLET (FP) PO SCH (09:55)
[2020-03-17] MEDS: DOCUSATE SODIUM 100 MG CAPSULE (FP) PO SCH ×2 (09:55→21:14)
[2020-03-17] MEDS: ASPIRIN 81 MG CHEWABLE TABLETS PO SCH (09:56)
[2020-03-17] MEDS: NYSTATIN POWDER 100,000 UNITS/GM - 15 GM TOPICAL POWDER TP SCH (09:56)
[2020-03-17] MEDS: APIXABAN 5 MG TABLET PO SCH ×2 (09:56→21:16)
[2020-03-17] MEDS: FERROUS SO4 325 MG TABLET (FP) PO SCH ×2 (09:56→21:14)
--- NOTE | 2020-03-17 10:13 | PN ---
Teaching Attending Note Name of Resident: Andrew Partida ATTENDING PHYSICIAN STATEMENT I saw and evaluated the patient. I reviewed the resident's note and discussed the case with the resident. I agree with the resident's findings and plan as documented. SUBJECTIVE: Patient is comfortable with no acute distress. OBJECTIVE: Vital Signs Temperature 98.9 F 03/17/20 06:00 Pulse Rate 105 H 03/17/20 06:00 Respiratory Rate 18 03/17/20 06:00 Blood Pressure 125/77 03/17/20 06:00 O2 Sat by Pulse Oximetry (%) 98 03/16/20 21:00 PE: per resident's note left 2nd toe amputated CBCD WBC 9.4 K/mm3 (4.0-10.0) 03/17/20 06:55 RBC 4.55 M/mm3 (4.00-5.60) 03/17/20 06:55 Hgb 11.2 GM/dL (11.7-16.9) L 03/17/20 06:55 Hct 35.1 % (35.4-49) L D 03/17/20 06:55 MCV 77.1 fl (80-96) L 03/17/20 06:55 MCHC 32.0 g/dl (32.0-35.9) 03/17/20 06:55 RDW 20.2 % (11.9-15.9) H 03/17/20 06:55 Plt Count 210 K/MM3 (134-434) 03/17/20 06:55 MPV 8.1 fl (7.5-11.1) 03/17/20 06:55 CMP Sodium 138 mmol/L (136-145) 03/17/20 06:55 Potassium 4.3 mmol/L (3.5-5.1) 03/17/20 06:55 Chloride 105 mmol/L (98-107) 03/17/20 06:55 Carbon Dioxide 27 mmol/L (21-32) 03/17/20 06:55 Anion Gap 6 MMOL/L (8-16) L 03/17/20 06:55 BUN 19.8 mg/dL (7-18) H 03/17/20 06:55 Creatinine 1.4 mg/dL (0.55-1.3) H 03/17/20 06:55 Random Glucose 110 mg/dL (74-106) H 03/17/20 06:55 Calcium 8.5 mg/dL (8.5-10.1) 03/17/20 06:55 Total Bilirubin 1.0 mg/dL (0.2-1) 03/17/20 06:55 AST 16 U/L (15-37) 03/17/20 06:55 ALT 25 U/L (13-61) 03/17/20 06:55 Alkaline Phosphatase 70 U/L (45-117) 03/17/20 06:55 Total Protein 6.6 g/dl (6.4-8.2) 03/17/20 06:55 Albumin 2.9 g/dl (3.4-5.0) L 03/17/20 06:55 Current Medications Generic Name Dose Route Start Last Admin Trade Name Freq PRN Reason Stop Dose Admin Apixaban 5 mg 03/16/20 22:00 03/17/20 09:56 Eliquis - PO 5 mg BID [facility]YSIA Administration Aspirin 81 mg 03/17/20 10:00 03/17/20 09:56 Asa - PO 81 mg DAILY [facility] Administration Atorvastatin Calcium 80 mg 03/16/20 22:00 03/16/20 21:01 Lipitor - PO 80 mg HS [facility] Administration Docusate Sodium 100 mg 03/16/20 22:00 03/17/20 09:55 Colace - PO 100 mg BID [facility] Administration Fentanyl 25 mcg 03/16/20 14:30 Sublimaze Injection - IVPUSH [id number] PRN PAIN-PACU ORDER X 4 DOSES ONLY Ferrous Sulfate 325 mg 03/16/20 22:00 03/17/20 09:56 Feosol - PO 325 mg BID [facility] Administration Furosemide 40 mg 03/17/20 06:00 03/17/20 06:14 Lasix - PO 40 mg BIDLASIX [facility] Administration Piperacillin Sod/Tazobactam 50 mls @ 100 mls/hr 03/16/20 18:00 03/17/20 09:57 Sod 3.375 gm/ Dextrose IVPB 100 mls/hr Q8H-IV [facility] Administration Protocol Vancomycin HCl 1,000 mg in 250 mls @ 166.667 mls/hr 03/17/20 16:00 Vancomycin (Pre-Docked) IVPB Q24H [facility] Protocol Insulin Aspart 1 vial 03/16/20 16:30 03/17/20 06:14 Novolog Vial Sliding Scale - SQ Not Given ACHS [facility] Protocol Lisinopril 2.5 mg 03/17/20 10:00 03/17/20 09:55 Prinivil PO 2.5 mg DAILY [facility] Administration Metoprolol Tartrate 12.5 mg 03/16/20 22:00 03/17/20 09:54 Lopressor - PO 12.5 mg BID [facility] Administration Nystatin 1 applic 03/17/20 10:00 03/17/20 09:56 Nystop Powder - TP 1 applic DAILY [facility] Administration Ondansetron HCl 4 mg 03/16/20 14:30 Zofran Injection IVPUSH Q6H PRN NAUSEA AND/OR VOMITING Oxycodone HCl 5 mg 03/16/20 14:30 03/17/20 06:15 Roxicodone - PO 5 mg Q4H PRN Administration PAIN LEVEL 1-5 Home Medications Medication Instructions Recorded Empagliflozin [Jardiance] 10 mg PO DAILY 01/14/20 Furosemide [Lasix] 40 mg PO BID 01/14/20 Lisinopril [Zestril] 2.5 mg PO DAILY 01/14/20 Sitagliptin Phosphate [Januvia] 25 mg PO DAILY 01/14/20 Baclofen 10 mg PO BID 01/23/20 Apixaban [Eliquis -] 5 mg PO BID #60 tablet 01/24/20 Aspirin [ASA -] 81 mg PO DAILY tab.chew 01/24/20 Atorvastatin Ca [Lipitor] 80 mg PO HS #30 tablet 01/24/20 Docusate Sodium [Colace -] 100 mg PO BID #40 capsule 01/24/20 Ferrous Sulfate [Feosol] 325 mg PO BID #60 ud 01/24/20 Metoprolol Tartrate [Lopressor -] 12.5 mg PO BID #60 tablet 01/24/20 Microbiology 03/10/20 13:50 Blood - Peripheral Venous Blood Culture - Final NO GROWTH AFTER 5 DAYS INCUBATION 03/10/20 13:00 Blood - Peripheral Venous Blood Culture - Final NO GROWTH AFTER 5 DAYS INCUBATION 03/10/20 13:00 Foot - Left Gram Stain - Final 03/10/20 13:00 Foot - Left Wound Culture - Final Pseudomonas Aeruginosa Enterococcus Faecalis ASSESSMENT AND PLAN: This patient is a 64yom with Pmhx of CAD, s/p stents, OM s/p L 2nd toe amputation 01/23/20, HTN, DM, anemia, A fib, who presented with left foot OM. # s/p left transmetatarsal amputation POD#1 due to OM of the L 2nd and 3rd metatarsal Osteomelitis by dr louis, on IV zosyn , as per experimental mechanic no dehisence, further care by experimental mechanic. on zosyn and vancomycin , ID on the case , waiting for final cx #Hx of A fib: on home lopressor and continue home Eliquis # CAD: cont BB, ASA # DM: cont SSI. # CKD: Cr around base line. cont lisinopril # HTN: cont lopressor and lisinopril F/u operative cultures Plan for non-WB L foot with rolling walker, minimal heel weight bearing Dry sterile dressing with light compression applied to the left foot physical therapy evaluation discharge once stable to home with VNS as per patient's request.
--- NOTE | 2020-03-17 10:57 | PN ---
Progress Note (short form) - Note Progress Note: Podiatry F/U: Seen/evaluated at bedside NAD. Pain is moderate to the left foot; controlled with PO pain medication. Denies F/V/N/C/SOB/CP. Afebrile. S/p left TMA POD#1. Patient's daughter and son participating in visit via [place]. TAMMY: L foot: Surgical dressing clean, dry, intact. There is no active bleeding, minimal bandage strikethrough. There is a kolby drain in place at the medial aspect of the TMA site. The sutures are well coapted with no dehiscence noted. There is no purulent drainage, no fluctuance, no bogginess, no streaking ascending cellulitis, no signs of active infection. There is moderate tenderness to palpation. The plantar flap is warm, no flap duskiness noted. OR cultures: pending Imp: 64 year old diabetic male with chronic osteomyelitis left 2nd/3rd rays s/p left transmetatarsal amputation POD#1 1. IV abx per infectious disease 2. Jud drain removed at bedside without issue. Dry sterile dressing with light compression applied to the left foot 3. Will have physical therapy evaluate patient today. Plan for non-WB L foot with rolling walker, minimal heel weightbearing 4. Discussed discharge options with the family, namely [facility] versus home with services. They are considering all options and will see how he does with physical therapy. D/w case management. 5. F/u operative cultures 6. Will follow Radha Ibrahim DPM
--- NOTE | 2020-03-17 15:01 | PN ---
Physical Exam: SUBJECTIVE: POD#1 s/p TMA. No overnight events. Patient seen and examined. NAD. Pt endorses pain at surgical site, but well-controlled with medication. OBJECTIVE: Vital Signs Period Temp Pulse Resp BP Sys/Jiménez Pulse Ox Last 24 Hr 97.5 F-98.9 F 67-105 17-18 101-125/62-77 98-100 GENERAL: Awake, alert, and fully oriented, in no acute distress. HEENT: NT/NC; conjunctiva clear. No lid lag, MMM NECK: Normal range of motion, supple without lymphadenopathy, JVD, or masses. LUNGS: Breath sounds equal, clear to auscultation bilaterally. No wheezes, and no crackles. No accessory muscle use. HEART: irregularly irregular, normal S1 and S2 without murmur, rub or gallop. MIDLINE surgical incision scar ABDOMEN: Soft, nontender,normoactive bowel sounds, no guarding, no rebound, Umbilical hernia MUSCULOSKELETAL: Normal range of motion at all joints. No bony deformities or tenderness. No CVA tenderness. UPPER EXTREMITIES: 2+ pulses, warm, well-perfused. No cyanosis. No clubbing. No peripheral edema. Abrasions on R arm that pt attributes to rough sponge he's used for bathing since he didn't take a bath due to his ulcer LOWER EXTREMITIES: 2+ pulses, warm, well-perfused. Non-pitting edema b/l. Skin ulcers over shins b/l. scar on L leg from vessel harvesting for CABG. L foot wound was not evaluated due to pain. NEUROLOGICAL: Normal speech. PSYCHIATRIC: Cooperative. Good eye contact. Appropriate mood and affect. SKIN: Warm, dry, normal turgor, no rashes or lesions noted, normal capillary refill. Laboratory Results - last 24 hr 03/16/20 03/16/20 03/17/20 16:03 20:59 06:13 WBC RBC Hgb Hct MCV MCH MCHC RDW Plt Count MPV Absolute Neuts (auto) Neutrophils % Lymphocytes % Monocytes % Eosinophils % Basophils % Nucleated RBC % Sodium Potassium Chloride Carbon Dioxide Anion Gap BUN Creatinine Est GFR (CKD-EPI)AfAm Est GFR (CKD-EPI)NonAf POC Glucometer 102 205 122 Random Glucose Calcium Phosphorus Magnesium Total Bilirubin AST ALT Alkaline Phosphatase Total Protein Albumin 03/17/20 03/17/20 03/17/20 06:55 06:55 10:35 WBC 9.4 RBC 4.55 Hgb 11.2 L Hct 35.1 L D MCV 77.1 L MCH 24.7 L MCHC 32.0 RDW 20.2 H Plt Count 210 MPV 8.1 Absolute Neuts (auto) 6.6 Neutrophils % 70.3 Lymphocytes % 12.4 D Monocytes % 11.9 H Eosinophils % 4.8 H Basophils % 0.6 Nucleated RBC % 0 Sodium 138 Potassium 4.3 Chloride 105 Carbon Dioxide 27 Anion Gap 6 L BUN 19.8 H Creatinine 1.4 H Est GFR (CKD-EPI)AfAm 61.53 Est GFR (CKD-EPI)NonAf 53.09 POC Glucometer 198 Random Glucose 110 H Calcium 8.5 Phosphorus 3.4 Magnesium 2.0 Total Bilirubin 1.0 AST 16 ALT 25 Alkaline Phosphatase 70 Total Protein 6.6 Albumin 2.9 L Active Medications Generic Name Dose Route Start Last Admin Trade Name Freq PRN Reason Stop Dose Admin Apixaban 5 mg 03/16/20 22:00 03/17/20 09:56 Eliquis - PO 5 mg BID ELYSIA Administration Aspirin 81 mg 03/17/20 10:00 03/17/20 09:56 Asa - PO 81 mg DAILY ELYSIA Administration Atorvastatin Calcium 80 mg 03/16/20 22:00 03/16/20 21:01 Lipitor - PO 80 mg HS ELYSIA Administration Docusate Sodium 100 mg 03/16/20 22:00 03/17/20 09:55 Colace - PO 100 mg BID ELYSIA Administration Fentanyl 25 mcg 03/16/20 14:30 Sublimaze Injection - IVPUSH [id number] PRN PAIN-PACU ORDER X 4 DOSES ONLY Ferrous Sulfate 325 mg 03/16/20 22:00 03/17/20 09:56 Feosol - PO 325 mg BID ELYSIA Administration Furosemide 40 mg 03/17/20 06:00 03/17/20 14:21 Lasix - PO 40 mg BIDLASIX ELYSIA Administration Piperacillin Sod/Tazobactam 50 mls @ 100 mls/hr 03/16/20 18:00 03/17/20 09:57 Sod 3.375 gm/ Dextrose IVPB 100 mls/hr Q8H-IV ELYSIA Administration Protocol Vancomycin HCl 1,000 mg in 250 mls @ 166.667 mls/hr 03/17/20 16:00 Vancomycin (Pre-Docked) IVPB Q24H ELYSIA Protocol Insulin Aspart 1 vial 03/16/20 16:30 03/17/20 14:21 Novolog Vial Sliding Scale - SQ 2 units ACHS ELYSIA Administration Protocol Lisinopril 2.5 mg 03/17/20 10:00 03/17/20 09:55 Prinivil PO 2.5 mg DAILY ELYSIA Administration Metoprolol Tartrate 12.5 mg 03/16/20 22:00 03/17/20 09:54 Lopressor - PO 12.5 mg BID ELYSIA Administration Nystatin 1 applic 03/17/20 10:00 03/17/20 09:56 Nystop Powder - TP 1 applic DAILY ELYSIA Administration Ondansetron HCl 4 mg 03/16/20 14:30 Zofran Injection IVPUSH Q6H PRN NAUSEA AND/OR VOMITING Oxycodone HCl 5 mg 03/16/20 14:30 03/17/20 06:15 Roxicodone - PO 5 mg Q4H PRN Administration PAIN LEVEL 1-5 ASSESSMENT/PLAN: 64 YO M PMH s/p CABG (3 vessel) in 2015, 6 cardiac stents (last stenet 1 year ago, currently on Eliquis and aspirin), DM, HTN, afib, iron deficiency anemia, & CAD p/w drainage of L foot ulcer at site of previous amputation from 01/23/2020. Admitted for wound management and to r/o osteomyelitis. Now being managed for osteomyelitis. #Left foot ulcer: Osteomyelitis -MRI: osteomyelitis of 2nd metatarsal edema bone marrow distal aspect of 3rd metatarsal bone compatible w/ osteomyelitis -wound cx: group D strep (E faecalis) sensitive to penicllin & pseudomonas -c/w zosyn & vanc, but will f/u w/ ID if vancomycin is needed for E faecalis due to its pencillin sensitivity. Vancomycin Day#7. Vanc DAILY was re-ordered today after not given yesterday. Will order vanc trough b/f 4th dose -TMA POD#1 -PT will evaluate -Pt had 105F. UA, blood cx ordered. Acetaminophen given. #Afib, CAD (s/p CABG, stent) -c/w home med of apixiban (5 mg PO BID) & ASA (81 mg PO daily) -EKG: Irregularly irregular, rate of 81; Rightward axis -c/w eliquis #DM -ISS -BGM #HTN -will c/w home medication of lisinopril 2.5 mg PO daily & Lasix because at baseline Cr. Will monitor Cr -c/w metoprolol #CKD Cr baseline 1.7. Today's Cr 1.4. will monitor Cr. d/c lasix if Cr increases #Diarrhea -resolved after pt didn't take colace. #DVT ppx - SCD #FEN no IV fluids monitor w/ BMP diabetic/sodium controlled diet #DISPO maintain med surg Pt's family will decide on Subacute rehab vs. home with services depending on his physical therapy progress Visit type - Emergency Visit Emergency Visit: Yes ED Registration Date: 03/10/20 Care time: The patient presented to the Emergency Department on the above date and was hospitalized for further evaluation of their emergent condition. - New Patient This patient is new to me today: No - Critical Care Critical Care patient: No ATTENDING PHYSICIAN STATEMENT I saw and evaluated the patient. I reviewed the resident's note and discussed the case with the resident. I agree with the resident's findings and plan as documented. SUBJECTIVE: OBJECTIVE: ASSESSMENT AND PLAN:
--- NOTE | 2020-03-17 15:36 | PN ---
Progress Note, Physician History of Present Illness: AWAKE IN BED S/P TMA NO C/O FOOT PAIN TEMP NOTED - Current Medication List Current Medications: Active Medications Acetaminophen (Tylenol -) 500 mg PO ONCE ONE Stop: 03/17/20 15:11 Apixaban (Eliquis -) 5 mg PO BID [facility] Last Admin: 03/17/20 09:56 Dose: 5 mg Documented by: Aspirin (Asa -) 81 mg PO DAILY [facility] Last Admin: 03/17/20 09:56 Dose: 81 mg Documented by: Atorvastatin Calcium (Lipitor -) 80 mg PO HS [facility] Last Admin: 03/16/20 21:01 Dose: 80 mg Documented by: Docusate Sodium (Colace -) 100 mg PO BID [facility] Last Admin: 03/17/20 09:55 Dose: 100 mg Documented by: Fentanyl (Sublimaze Injection -) 25 mcg IVPUSH [id number] PRN PRN Reason: PAIN-PACU ORDER X 4 DOSES ONLY Ferrous Sulfate (Feosol -) 325 mg PO BID [facility] Last Admin: 03/17/20 09:56 Dose: 325 mg Documented by: Furosemide (Lasix -) 40 mg PO BIDLASIX [facility] Last Admin: 03/17/20 14:21 Dose: 40 mg Documented by: Piperacillin Sod/Tazobactam (Sod 3.375 gm/ Dextrose) 50 mls @ 100 mls/hr IVPB Q8H-IV [facility]; Protocol Last Admin: 03/17/20 09:57 Dose: 100 mls/hr Documented by: Vancomycin HCl (Vancomycin (Pre-Docked)) 1,000 mg in 250 mls @ 166.667 mls/hr IVPB Q24H [facility]; Protocol Insulin Aspart (Novolog Vial Sliding Scale -) 1 vial SQ ACHS [facility]; Protocol Last Admin: 03/17/20 14:21 Dose: 2 units Documented by: Lisinopril (Prinivil) 2.5 mg PO DAILY [facility] Last Admin: 03/17/20 09:55 Dose: 2.5 mg Documented by: Metoprolol Tartrate (Lopressor -) 12.5 mg PO BID [facility] Last Admin: 03/17/20 09:54 Dose: 12.5 mg Documented by: Nystatin (Nystop Powder -) 1 applic TP DAILY [facility] Last Admin: 03/17/20 09:56 Dose: 1 applic Documented by: Ondansetron HCl (Zofran Injection) 4 mg IVPUSH Q6H PRN PRN Reason: NAUSEA AND/OR VOMITING Oxycodone HCl (Roxicodone -) 5 mg PO Q4H PRN PRN Reason: PAIN LEVEL 1-5 Last Admin: 03/17/20 06:15 Dose: 5 mg Documented by: - Objective Vital Signs: Vital Signs Temperature 101.9 F H 03/17/20 14:00 Pulse Rate 120 H 03/17/20 14:00 Respiratory Rate 18 03/17/20 14:00 Blood Pressure 137/57 L 03/17/20 14:00 O2 Sat by Pulse Oximetry (%) 98 03/16/20 21:00 Constitutional: Yes: Well Nourished Eyes: Yes: Conjunctiva Clear Cardiovascular: Yes: Regular Rate and Rhythm, S1, S2 Respiratory: Yes: CTA Bilaterally Gastrointestinal: Yes: Normal Bowel Sounds, Soft. No: Tenderness Extremities: Yes: Other (TMA STUMP WOUND WITH SUTURES IN PLACE NO DRAINAGE/ERYTHMA) Labs: CBC, BMP 03/17/20 06:55 03/17/20 06:55 INR, PTT INR 1.39 (0.83-1.09) H 03/16/20 07:20 Assessment/Plan POST OP TMA FEVER AZOTEMIA OBTAIN BLOOD C/S CONTINUE ZOSYN LOCL WOUND CARE
[2020-03-17] MEDS ORDERED: ACETAMINOPHEN 500 MG TABLET (FP) PO ONE (15:45)
[2020-03-17] MEDS: VANCOMYCIN 1 GRAM (PRE-DOCKED) 1,000 MG/250 ML BAG IVPB SCH (16:05)
[2020-03-17 16:31] LABS: URINE APPEARANCE CLEAR; URINE BILIRUBIN NEGATIVE (NEGATIVE); URINE COLOR YELLOW; URINE GLUCOSE (UA) NEGATIVE (NEGATIVE); URINE KETONE NEGATIVE (NEGATIVE); URINE LEUK ESTERASE NEGATIVE (NEGATIVE); URINE NITRITE NEGATIVE (NEGATIVE); URINE PROTEIN NEGATIVE (NEGATIVE); URINE UROBILINOGEN 0.2 mg/dL (0.2-1.0)
[2020-03-17] MEDS: ATORVASTATIN CA 80 MG TABLET (FP) PO SCH (21:14)
[2020-03-17] MEDS: ACETAMINOPHEN 325 MG TABLET (FP) PO PRN (21:16)
[2020-03-18] MEDS ORDERED: PIPERACILLIN/TAZOBACTAM 3.375 GM VIAL IVPB ONE ×3 (01:26→16:47)
[2020-03-18] MEDS ORDERED: DEXTROSE 5%-WATER - 50 ML IVPB ONE ×3 (01:26→16:47)
[2020-03-18] MEDS: oxyCODONE HCL 5 MG TABLET PO PRN (01:27)
[2020-03-18] MEDS: PIPERACILLIN/TAZOB 3.375 GM 3.375 GM in DEXTROSE 5%-WATER - 50 ML IVPB SCH ×3 (01:29→17:10)
[2020-03-18] MEDS: INSULIN SLIDING SCALE (NOVOLOG) 1 VIAL SQ SCH ×4 (06:07→21:13)
[2020-03-18] MEDS: FUROSEMIDE 40 MG TABLET (FP) PO SCH ×2 (06:07→13:56)
[2020-03-18 08:08] LABS: BASO % 0.9 % (0-2.0); EOS % 3.4 % (0-4.5); HEMOGLOBIN 11.2 GM/dL (11.7-16.9); LYMPH % 11.7 % (8-40); MCH 24.4 pg (25.7-33.7); MCHC 31.9 g/dl (32.0-35.9); MEAN CELL VOLUME 76.6 fl (80-96); MEAN PLT VOLUME 7.9 fl (7.5-11.1); MONO % 16.5 % (3.8-10.2); NEUT % 67.5 % (42.8-82.8); PLATELET COUNT 189 K/MM3 (134-434); RBC 4.57 M/mm3 (4.00-5.60); RDW 20.5 % (11.9-15.9); WHITE BLOOD COUNT 10.5 K/mm3 (4.0-10.0)
[2020-03-18 08:42] LABS: ALBUMIN 2.8 g/dl (3.4-5.0); BILIRUBIN,TOTAL 1.1 mg/dL (0.2-1); CALCIUM 8.2 mg/dL (8.5-10.1); CREATININE 1.4 mg/dL (0.55-1.3); MAGNESIUM 1.9 mg/dL (1.8-2.4); PHOSPHOROUS 3.1 mg/dL (2.5-4.9); POTASSIUM 3.8 mmol/L (3.5-5.1); TOT PROT 6.6 g/dl (6.4-8.2)
[2020-03-18 08:59] LABS: ANISOCYTOSIS 2+; MACROCYTOSIS 0; PLATELET ESTIMATE NORMAL
[2020-03-18] MEDS: METOPROLOL TARTRATE 25 MG TABLET (FP) PO SCH ×2 (09:16→21:12)
[2020-03-18] MEDS: FERROUS SO4 325 MG TABLET (FP) PO SCH ×2 (09:16→21:12)
[2020-03-18] MEDS: ASPIRIN 81 MG CHEWABLE TABLETS PO SCH (09:17)
[2020-03-18] MEDS: APIXABAN 5 MG TABLET PO SCH ×2 (09:17→21:13)
[2020-03-18] MEDS: LISINOPRIL 5 MG TABLET (FP) PO SCH (09:17)
[2020-03-18] MEDS: NYSTATIN POWDER 100,000 UNITS/GM - 15 GM TOPICAL POWDER TP SCH (09:18)
[2020-03-18] MEDS: DOCUSATE SODIUM 100 MG CAPSULE (FP) PO SCH ×2 (09:19→21:12)
--- NOTE | 2020-03-18 09:22 | PN ---
Progress Note (short form) - Note Progress Note: Podiatry F/U: Seen/evaluated at bedside NAD. Currently afebrile. Did have temp to 100F overnight. Fever has since broke. Denies chest pain, SOB, chills/nausea. S/p left foot transmetatarsal amputation POD#2. Could not tolerate work with physical therapy yesterday. He is seen today with leg elevated with pillow in bed. TAMMY: L foot: post-surgical dressing clean, dry, intact. There is no active bleeding, no bandage strikethrough. Postoperative TMA site with sutures well coapted, no dehiscence noted. The plantar flap is warm to touch, no ischemic changes noted. There is significant tenderness to palpation of the plantar flap. The medial most aspect of the surgical site is open from prior kolby drain. There is mild sanguinous oozing with tenderness. There is no purulent drainage, no fluctuance, no streaking ascending cellulitis, no signs of acute infection. Blood Cx: pending Bone Cx/Path: pending Imp: 64 year old diabetic PVD male s/p left foot transmetatarsal amputation POD#2 1. IV abx per infectious disease. F/u fever workup 2. Pain control. 3. Medial-most suture removed at bedside today. I inspected interior of TMA stump using forceps and there was no evidence for hematoma formation. Postoperative hematoma can cause significant pain on compression. Will have to watch closely. Did discuss with patient and family members via telephone the possibility of I&D of hematoma if pain persists. Will continue to follow this. 4. Postoperative xray left foot today. 5. Continue physical therapy. NWB L foot with walker, minimal heel WB for transfer 6. Will closely follow Radha Ibrahim DPM
--- NOTE | 2020-03-18 11:59 | PN ---
Progress Note (short form) - Note Progress Note: no complaints pod #2 s/p TMA wound just examined and dressed by resin remover Vital Signs Period Temp Pulse Resp BP Sys/Jiménez Pulse Ox Last 24 Hr 98.8 F-101.9 F 92-120 18-18 103-137/53-74 96-98 cor-rrr lungs clear abd soft,nt ext dressingintact CBC, BMP 03/18/20 07:35 03/18/20 07:35 Microbiology 03/16/20 Unknown Bone Gram Stain - Final 03/16/20 Unknown Bone Tissue Culture - Preliminary Pseudomonas Species Group D Strep Or Entero Coccus 03/16/20 Unknown Foot - Left Gram Stain - Final 03/16/20 Unknown Foot - Left Wound Culture - Preliminary Non Lactose Fermenting Gnb 03/10/20 13:50 Blood - Peripheral Venous Blood Culture - Final NO GROWTH AFTER 5 DAYS INCUBATION 03/10/20 13:00 Blood - Peripheral Venous Blood Culture - Final NO GROWTH AFTER 5 DAYS INCUBATION 03/10/20 13:00 Foot - Left Gram Stain - Final 03/10/20 13:00 Foot - Left Wound Culture - Final Pseudomonas Aeruginosa Enterococcus Faecalis a/p postop fever s/p TMA osteomyelitis s/p amputation of second toe left foot 01/22-wound dehiscence s/p angioplasty 01/20 DM PVD CAD- history of cabg ckd continue vanco/zosyn periop incentive spirometry blood cultures sent cxray if he has further fever awaiting pathology Problem List - Problems (1) Osteomyelitis Code(s): M86.9 - OSTEOMYELITIS, UNSPECIFIED (2) PVD (peripheral vascular disease) Code(s): I73.9 - PERIPHERAL VASCULAR DISEASE, UNSPECIFIED (3) Diabetes Code(s): E11.9 - TYPE 2 DIABETES MELLITUS WITHOUT COMPLICATIONS (4) CAD (coronary artery disease) Code(s): I25.10 - ATHSCL HEART DISEASE OF [place] CORONARY ARTERY W/O ANG PCTRS (5) CKD (chronic kidney disease) Code(s): N18.9 - CHRONIC KIDNEY DISEASE, UNSPECIFIED
[2020-03-18] MEDS: ACETAMINOPHEN 325 MG TABLET (FP) PO PRN (13:56)
[2020-03-18] MEDS: VANCOMYCIN 1 GRAM (PRE-DOCKED) 1,000 MG/250 ML BAG IVPB SCH (15:39)
--- NOTE | 2020-03-18 17:54 | PN ---
Teaching Attending Note Name of Resident: Andrew Partida ATTENDING PHYSICIAN STATEMENT I saw and evaluated the patient. I reviewed the resident's note and discussed the case with the resident. I agree with the resident's findings and plan as documented. SUBJECTIVE: Patient is comfortable with no acute distress. OBJECTIVE: Vital Signs Temperature 100.6 F H 03/18/20 16:21 Pulse Rate 115 H 03/18/20 14:00 Respiratory Rate 18 03/18/20 14:00 Blood Pressure 116/71 03/18/20 14:00 O2 Sat by Pulse Oximetry (%) 98 03/18/20 10:00 PE: per resident's note CBCD WBC 10.5 K/mm3 (4.0-10.0) H 03/18/20 07:35 RBC 4.57 M/mm3 (4.00-5.60) 03/18/20 07:35 Hgb 11.2 GM/dL (11.7-16.9) L 03/18/20 07:35 Hct 35.0 % (35.4-49) L 03/18/20 07:35 MCV 76.6 fl (80-96) L 03/18/20 07:35 MCHC 31.9 g/dl (32.0-35.9) L 03/18/20 07:35 RDW 20.5 % (11.9-15.9) H 03/18/20 07:35 Plt Count 189 K/MM3 (134-434) 03/18/20 07:35 MPV 7.9 fl (7.5-11.1) 03/18/20 07:35 CMP Sodium 134 mmol/L (136-145) L 03/18/20 07:35 Potassium 3.8 mmol/L (3.5-5.1) 03/18/20 07:35 Chloride 102 mmol/L (98-107) 03/18/20 07:35 Carbon Dioxide 26 mmol/L (21-32) 03/18/20 07:35 Anion Gap 6 MMOL/L (8-16) L 03/18/20 07:35 BUN 22.0 mg/dL (7-18) H 03/18/20 07:35 Creatinine 1.4 mg/dL (0.55-1.3) H 03/18/20 07:35 Random Glucose 127 mg/dL (74-106) H 03/18/20 07:35 Calcium 8.2 mg/dL (8.5-10.1) L 03/18/20 07:35 Total Bilirubin 1.1 mg/dL (0.2-1) H 03/18/20 07:35 AST 12 U/L (15-37) L 03/18/20 07:35 ALT 22 U/L (13-61) 03/18/20 07:35 Alkaline Phosphatase 74 U/L (45-117) 03/18/20 07:35 Total Protein 6.6 g/dl (6.4-8.2) 03/18/20 07:35 Albumin 2.8 g/dl (3.4-5.0) L 03/18/20 07:35 Current Medications Generic Name Dose Route Start Last Admin Trade Name Freq PRN Reason Stop Dose Admin Acetaminophen 650 mg 03/17/20 17:42 03/18/20 13:56 Tylenol - PO 650 mg Q6H PRN Administration Fever Or Pain Apixaban 5 mg 03/16/20 22:00 03/18/20 09:17 Eliquis - PO 5 mg BID ELYSIA Administration Aspirin 81 mg 03/17/20 10:00 03/18/20 09:17 Asa - PO 81 mg DAILY ELYSIA Administration Atorvastatin Calcium 80 mg 03/16/20 22:00 03/17/20 21:14 Lipitor - PO 80 mg HS ELYSIA Administration Docusate Sodium 100 mg 03/16/20 22:00 03/18/20 09:19 Colace - PO Not Given BID ELYSIA Fentanyl 25 mcg 03/16/20 14:30 Sublimaze Injection - IVPUSH [id number] PRN PAIN-PACU ORDER X 4 DOSES ONLY Ferrous Sulfate 325 mg 03/16/20 22:00 03/18/20 09:16 Feosol - PO 325 mg BID ELYSIA Administration Furosemide 40 mg 03/17/20 06:00 03/18/20 13:56 Lasix - PO 40 mg BIDLASIX ELYSIA Administration Piperacillin Sod/Tazobactam 50 mls @ 100 mls/hr 03/16/20 18:00 03/18/20 17:10 Sod 3.375 gm/ Dextrose IVPB 100 mls/hr Q8H-IV ELYSIA Administration Protocol Vancomycin HCl 1,000 mg in 250 mls @ 166.667 mls/hr 03/17/20 16:00 03/18/20 15:39 Vancomycin (Pre-Docked) IVPB 166.667 mls/hr Q24H ELYSIA Administration Protocol Insulin Aspart 1 vial 03/16/20 16:30 03/18/20 16:26 Novolog Vial Sliding Scale - SQ 8 units ACHS ELYSIA Administration Protocol Lisinopril 2.5 mg 03/17/20 10:00 03/18/20 09:17 Prinivil PO 2.5 mg DAILY ELYSIA Administration Metoprolol Tartrate 12.5 mg 03/16/20 22:00 03/18/20 09:16 Lopressor - PO 12.5 mg BID ELYSIA Administration Nystatin 1 applic 03/17/20 10:00 03/18/20 09:18 Nystop Powder - TP Not Given DAILY [facility] Ondansetron HCl 4 mg 03/16/20 14:30 Zofran Injection IVPUSH Q6H PRN NAUSEA AND/OR VOMITING Oxycodone HCl 5 mg 03/16/20 14:30 03/18/20 01:27 Roxicodone - PO 5 mg Q4H PRN Administration PAIN LEVEL 1-5 Home Medications Medication Instructions Recorded Empagliflozin [Jardiance] 10 mg PO DAILY 01/14/20 Furosemide [Lasix] 40 mg PO BID 01/14/20 Lisinopril [Zestril] 2.5 mg PO DAILY 01/14/20 Sitagliptin Phosphate [Januvia] 25 mg PO DAILY 01/14/20 Baclofen 10 mg PO BID 01/23/20 Apixaban [Eliquis -] 5 mg PO BID #60 tablet 01/24/20 Aspirin [ASA -] 81 mg PO DAILY tab.chew 01/24/20 Atorvastatin Ca [Lipitor] 80 mg PO HS #30 tablet 01/24/20 Docusate Sodium [Colace -] 100 mg PO BID #40 capsule 01/24/20 Ferrous Sulfate [Feosol] 325 mg PO BID #60 ud 01/24/20 Metoprolol Tartrate [Lopressor -] 12.5 mg PO BID #60 tablet 01/24/20 Microbiology 03/17/20 16:15 Blood - Peripheral Venous Blood Culture - Preliminary NO GROWTH OBTAINED AFTER 24 HOURS, INCUBATION TO CONTINUE FOR 4 DAYS. 03/17/20 16:15 Blood - Peripheral Venous Blood Culture - Preliminary NO GROWTH OBTAINED AFTER 24 HOURS, INCUBATION TO CONTINUE FOR 4 DAYS. 03/16/20 Unknown Bone Gram Stain - Final 03/16/20 Unknown Bone Tissue Culture - Preliminary Group D Strep Or Entero Coccus Pseudomonas Species 03/16/20 Unknown Foot - Left Gram Stain - Final 03/16/20 Unknown Foot - Left Wound Culture - Preliminary Non Lactose Fermenting Gnb 03/10/20 13:50 Blood - Peripheral Venous Blood Culture - Final NO GROWTH AFTER 5 DAYS INCUBATION 03/10/20 13:00 Blood - Peripheral Venous Blood Culture - Final NO GROWTH AFTER 5 DAYS INCUBATION 03/10/20 13:00 Foot - Left Gram Stain - Final 03/10/20 13:00 Foot - Left Wound Culture - Final Pseudomonas Aeruginosa Enterococcus Faecalis ASSESSMENT AND PLAN: This patient is a 64yom with Pmhx of CAD, s/p stents, OM s/p L 2nd toe amputation 01/23/20, HTN, DM, anemia, A fib, who presented with left foot OM. # s/p left foot transmetatarsal amputation POD#2 due to OM of the L 2nd and 3rd metatarsal Osteomelitis by dr louis, on IV zosyn , as per kindergartner no dehisence, further care by kindergartner. on zosyn and vancomycin , ID on the case , waiting for final cx. further w/u by kindergartner monitor #Hx of A fib: on home lopressor and continue home Eliquis # CAD: cont BB, ASA # DM: cont SSI. # CKD: Cr around base line. cont lisinopril # HTN: cont lopressor and lisinopril F/u operative cultures Plan for non-WB L foot with rolling walker, minimal heel weight bearing Dry sterile dressing with light compression applied to the left foot physical therapy evaluation discharge once stable to home with VNS as per patient's request. xray of left foot
--- NOTE | 2020-03-18 19:46 | PN ---
Physical Exam: SUBJECTIVE: POD#2 s/p TMA. No overnight events. Patient seen and examined. NAD. Pt endorses pain at surgical site, but well-controlled with medication. OBJECTIVE: Vital Signs Period Temp Pulse Resp BP Sys/Jiménez Pulse Ox Last 24 Hr 98.8 F-100.8 F 92-115 18-20 103-132/53-76 96-98 GENERAL: Awake, alert, and fully oriented, in no acute distress. HEENT: NT/NC; conjunctiva clear. No lid lag, MMM NECK: Normal range of motion, supple without lymphadenopathy, JVD, or masses. LUNGS: Breath sounds equal, clear to auscultation bilaterally. No wheezes, and no crackles. No accessory muscle use. HEART: irregularly irregular, normal S1 and S2 without murmur, rub or gallop. MIDLINE surgical incision scar ABDOMEN: Soft, nontender,normoactive bowel sounds, no guarding, no rebound, Umbilical hernia MUSCULOSKELETAL: Normal range of motion at all joints. No bony deformities or tenderness. No CVA tenderness. UPPER EXTREMITIES: 2+ pulses, warm, well-perfused. No cyanosis. No clubbing. No peripheral edema. Abrasions on R arm that pt attributes to rough sponge he's used for bathing since he didn't take a bath due to his ulcer LOWER EXTREMITIES: 2+ pulses, warm, well-perfused. Non-pitting edema b/l. Skin ulcers over shins b/l. scar on L leg from vessel harvesting for CABG. L foot wound: no drainage, no erythema, or swelling NEUROLOGICAL: Normal speech. PSYCHIATRIC: Cooperative. Good eye contact. Appropriate mood and affect. SKIN: Warm, dry, normal turgor, no rashes or lesions noted, normal capillary refill. Laboratory Results - last 24 hr 03/17/20 03/18/20 03/18/20 21:03 06:04 07:35 WBC 10.5 H RBC 4.57 Hgb 11.2 L Hct 35.0 L MCV 76.6 L MCH 24.4 L MCHC 31.9 L RDW 20.5 H Plt Count 189 MPV 7.9 Absolute Neuts (auto) 7.1 Neutrophils % 67.5 Lymphocytes % 11.7 Monocytes % 16.5 H Eosinophils % 3.4 Basophils % 0.9 Nucleated RBC % 0 Hypochromia 0 Platelet Estimate Normal Polychromasia 1+ Poikilocytosis 0 Anisocytosis 2+ Microcytosis 2+ Macrocytosis 0 Sodium Potassium Chloride Carbon Dioxide Anion Gap BUN Creatinine Est GFR (CKD-EPI)AfAm Est GFR (CKD-EPI)NonAf POC Glucometer 224 160 Random Glucose Calcium Phosphorus Magnesium Total Bilirubin AST ALT Alkaline Phosphatase Total Protein Albumin 03/18/20 03/18/20 03/18/20 07:35 11:45 16:24 WBC RBC Hgb Hct MCV MCH MCHC RDW Plt Count MPV Absolute Neuts (auto) Neutrophils % Lymphocytes % Monocytes % Eosinophils % Basophils % Nucleated RBC % Hypochromia Platelet Estimate Polychromasia Poikilocytosis Anisocytosis Microcytosis Macrocytosis Sodium 134 L Potassium 3.8 Chloride 102 Carbon Dioxide 26 Anion Gap 6 L BUN 22.0 H Creatinine 1.4 H Est GFR (CKD-EPI)AfAm 61.53 Est GFR (CKD-EPI)NonAf 53.09 POC Glucometer 214 319 Random Glucose 127 H Calcium 8.2 L Phosphorus 3.1 Magnesium 1.9 Total Bilirubin 1.1 H AST 12 L ALT 22 Alkaline Phosphatase 74 Total Protein 6.6 Albumin 2.8 L Active Medications Generic Name Dose Route Start Last Admin Trade Name Freq PRN Reason Stop Dose Admin Acetaminophen 650 mg 03/17/20 17:42 03/18/20 13:56 Tylenol - PO 650 mg Q6H PRN Administration Fever Or Pain Apixaban 5 mg 03/16/20 22:00 03/18/20 09:17 Eliquis - PO 5 mg BID ELYSIA Administration Aspirin 81 mg 03/17/20 10:00 03/18/20 09:17 Asa - PO 81 mg DAILY ELYSIA Administration Atorvastatin Calcium 80 mg 03/16/20 22:00 03/17/20 21:14 Lipitor - PO 80 mg HS ELYSIA Administration Docusate Sodium 100 mg 03/16/20 22:00 03/18/20 09:19 Colace - PO Not Given BID ELYSIA Fentanyl 25 mcg 03/16/20 14:30 Sublimaze Injection - IVPUSH [id number] PRN PAIN-PACU ORDER X 4 DOSES ONLY Ferrous Sulfate 325 mg 03/16/20 22:00 03/18/20 09:16 Feosol - PO 325 mg BID ELYSIA Administration Furosemide 40 mg 03/17/20 06:00 03/18/20 13:56 Lasix - PO 40 mg BIDLASIX ELYSIA Administration Piperacillin Sod/Tazobactam 50 mls @ 100 mls/hr 03/16/20 18:00 03/18/20 17:10 Sod 3.375 gm/ Dextrose IVPB 100 mls/hr Q8H-IV ELYSIA Administration Protocol Vancomycin HCl 1,000 mg in 250 mls @ 166.667 mls/hr 03/17/20 16:00 03/18/20 15:39 Vancomycin (Pre-Docked) IVPB 166.667 mls/hr Q24H ELYSIA Administration Protocol Insulin Aspart 1 vial 03/16/20 16:30 03/18/20 16:26 Novolog Vial Sliding Scale - SQ 8 units ACHS ELYSIA Administration Protocol Lisinopril 2.5 mg 03/17/20 10:00 03/18/20 09:17 Prinivil PO 2.5 mg DAILY ELYSIA Administration Metoprolol Tartrate 12.5 mg 03/16/20 22:00 03/18/20 09:16 Lopressor - PO 12.5 mg BID ELYSIA Administration Nystatin 1 applic 03/17/20 10:00 03/18/20 09:18 Nystop Powder - TP Not Given DAILY ELYSIA Ondansetron HCl 4 mg 03/16/20 14:30 Zofran Injection IVPUSH Q6H PRN NAUSEA AND/OR VOMITING Oxycodone HCl 5 mg 03/16/20 14:30 03/18/20 01:27 Roxicodone - PO 5 mg Q4H PRN Administration PAIN LEVEL 1-5 ASSESSMENT/PLAN: 64 YO M PMH s/p CABG (3 vessel) in 2016, 6 cardiac stents (last stenet 1 year ago, currently on Eliquis and aspirin), DM, HTN, afib, iron deficiency anemia, & CAD p/w drainage of L foot ulcer at site of previous amputation from 01/23/2020. Admitted for wound management and to r/o osteomyelitis. Now being managed for osteomyelitis. #Left foot ulcer: Osteomyelitis -MRI: osteomyelitis of 2nd metatarsal edema bone marrow distal aspect of 3rd metatarsal bone compatible w/ osteomyelitis -wound cx: group D strep (E faecalis) sensitive to penicllin & pseudomonas -c/w zosyn & vanc, Vancomycin Day#8. Vanc was restarted on 03/17. Get vanc trough b/f 4th dose on 03/20. -TMA POD#2 -PT will evaluate -100.2 F overnight. blood cx pending. Order CXR if spikes fever again. -Foot x-ray: prominent plantar calcaneus spur #Afib, CAD (s/p CABG, stent) -c/w home med of apixiban (5 mg PO BID) & ASA (81 mg PO daily) -EKG: Irregularly irregular, rate of 81; Rightward axis -c/w eliquis #DM -ISS -BGM #HTN -will c/w home medication of lisinopril 2.5 mg PO daily & Lasix because at baseline Cr. Will monitor Cr -c/w metoprolol #CKD Cr baseline 1.7. Today's Cr 1.4. will monitor Cr. d/c lasix if Cr increases #Diarrhea RESOLVED #DVT ppx - SCD #FEN no IV fluids monitor w/ BMP diabetic/sodium controlled diet #DISPO maintain med surg Pt's family will decide on Subacute rehab vs. home with services depending on his physical therapy progress Visit type - Emergency Visit Emergency Visit: Yes ED Registration Date: 03/10/20 Care time: The patient presented to the Emergency Department on the above date and was hospitalized for further evaluation of their emergent condition. - New Patient This patient is new to me today: No - Critical Care Critical Care patient: No ATTENDING PHYSICIAN STATEMENT I saw and evaluated the patient. I reviewed the resident's note and discussed the case with the resident. I agree with the resident's findings and plan as documented. SUBJECTIVE: OBJECTIVE: ASSESSMENT AND PLAN:
[2020-03-18] MEDS: ATORVASTATIN CA 80 MG TABLET (FP) PO SCH (21:13)
[2020-03-19] MEDS ORDERED: DEXTROSE 5%-WATER - 50 ML IVPB ONE ×2 (01:21→08:32)
[2020-03-19] MEDS ORDERED: PIPERACILLIN/TAZOBACTAM 3.375 GM VIAL IVPB ONE ×2 (01:21→08:32)
[2020-03-19] MEDS: PIPERACILLIN/TAZOB 3.375 GM 3.375 GM in DEXTROSE 5%-WATER - 50 ML IVPB SCH ×2 (01:30→09:12)
[2020-03-19] MEDS: FUROSEMIDE 40 MG TABLET (FP) PO SCH ×2 (06:09→14:24)
[2020-03-19] MEDS: ACETAMINOPHEN 325 MG TABLET (FP) PO PRN ×2 (06:09→18:17)
[2020-03-19] MEDS: INSULIN SLIDING SCALE (NOVOLOG) 1 VIAL SQ SCH ×4 (06:10→21:43)
[2020-03-19 08:50] LABS: BASO % 0.9 % (0-2.0); EOS % 3.6 % (0-4.5); HEMATOCRIT 32.4 % (35.4-49); HEMOGLOBIN 10.3 GM/dL (11.7-16.9); LYMPH % 11.6 % (8-40); MCH 24.4 pg (25.7-33.7); MEAN CELL VOLUME 76.2 fl (80-96); MEAN PLT VOLUME 8.3 fl (7.5-11.1); MONO % 12.5 % (3.8-10.2); NEUT % 71.4 % (42.8-82.8); PLATELET COUNT 194 K/MM3 (134-434); RBC 4.24 M/mm3 (4.00-5.60); RDW 20.2 % (11.9-15.9); WHITE BLOOD COUNT 11.7 K/mm3 (4.0-10.0)
[2020-03-19] MEDS: ASPIRIN 81 MG CHEWABLE TABLETS PO SCH (09:12)
[2020-03-19] MEDS: DOCUSATE SODIUM 100 MG CAPSULE (FP) PO SCH ×2 (09:12→21:44)
[2020-03-19] MEDS: METOPROLOL TARTRATE 25 MG TABLET (FP) PO SCH ×2 (09:12→21:44)
[2020-03-19] MEDS: NYSTATIN POWDER 100,000 UNITS/GM - 15 GM TOPICAL POWDER TP SCH (09:14)
[2020-03-19] MEDS: APIXABAN 5 MG TABLET PO SCH ×2 (09:14→21:44)
[2020-03-19] MEDS: LISINOPRIL 5 MG TABLET (FP) PO SCH (09:14)
[2020-03-19] MEDS: FERROUS SO4 325 MG TABLET (FP) PO SCH ×2 (09:15→21:45)
[2020-03-19 09:24] LABS: ALBUMIN 2.7 g/dl (3.4-5.0); BILIRUBIN,TOTAL 1.4 mg/dL (0.2-1); BLOOD UREA NITROGEN 21.3 mg/dL (7-18); CALCIUM 8.6 mg/dL (8.5-10.1); CREATININE 1.5 mg/dL (0.55-1.3); MAGNESIUM 1.9 mg/dL (1.8-2.4); POTASSIUM 3.8 mmol/L (3.5-5.1); TOT PROT 6.4 g/dl (6.4-8.2)
--- NOTE | 2020-03-19 10:45 | PN ---
Progress Note (short form) - Note Progress Note: Podiatry F/U: Seen/evaluated at bedside NAD. Currently afebrile. Did teleconference with his son and katelin as well. Febrile low overnight at 99.8. Doing very well. Denies any pain. Feeling very good today. No trouble breathing. TAMMY: L foot: post-surgical dressing clean, dry, intact. There is no active bleeding, no bandage strikethrough. Postoperative TMA site with sutures well coapted, no dehiscence noted. The plantar flap is warm to touch, no ischemic changes noted. Tenderness completely resolved; no signs of any infection, no signs of any hematoma formation, dressing was c/d/i from overnight Blood Cx: pending Bone Cx/Path: pending Imp: 64 year old diabetic PVD male s/p left foot transmetatarsal amputation POD#3 Evaluated and reviewed Still febrile and wbc trending upwards but does NOT appear to be coming from the foot Can keep dressing c/d/i for today and change every other day with wet to dry DSD Discussed rehab vs home with patient pending PT workup as well as possible need for intermediate manager IV abx. Iv abx per ID fever work up Will follow but foot is stable from podiatry standpoint.
[2020-03-19] MEDS ORDERED: INSULIN (NOVOLOG) ASPART 100 UNITS/ML 10ML VIAL ONE ×2 (11:48→21:33)
--- NOTE | 2020-03-19 12:45 | PN ---
Progress Note (short form) - Note Progress Note: no complaints pod #e s/p TMA no cough, no sob denies foot pain was up with PT still no BM Vital Signs Period Temp Pulse Resp BP Sys/Jiménez Pulse Ox Last 24 Hr 98.6 F-100.6 F 74-114 18-20 109-132/57-82 96-99 cor-rrr lungs clear abd soft,nt ext tma site- sutures intact, some warmth and erythema noted CBC, BMP 03/19/20 07:47 03/19/20 07:47 Microbiology 03/16/20 Unknown Bone Gram Stain - Final 03/16/20 Unknown Bone Tissue Culture - Preliminary Pseudomonas Aeruginosa Group D Strep Or Entero Coccus 03/16/20 Unknown Bone Anaerobic Culture - Final NO ANAEROBES WERE ISOLATED 03/16/20 Unknown Foot - Left Gram Stain - Final 03/16/20 Unknown Foot - Left Wound Culture - Final Pseudomonas Aeruginosa 03/17/20 16:15 Blood - Peripheral Venous Blood Culture - Preliminary NO GROWTH OBTAINED AFTER 24 HOURS, INCUBATION TO CONTINUE FOR 4 DAYS. 03/17/20 16:15 Blood - Peripheral Venous Blood Culture - Preliminary NO GROWTH OBTAINED AFTER 24 HOURS, INCUBATION TO CONTINUE FOR 4 DAYS. 03/10/20 13:50 Blood - Peripheral Venous Blood Culture - Final NO GROWTH AFTER 5 DAYS INCUBATION 03/10/20 13:00 Blood - Peripheral Venous Blood Culture - Final NO GROWTH AFTER 5 DAYS INCUBATION 03/10/20 13:00 Foot - Left Gram Stain - Final 03/10/20 13:00 Foot - Left Wound Culture - Final Pseudomonas Aeruginosa Enterococcus Faecalis a/p postop fever s/p TMA osteomyelitis s/p amputation of second toe left foot 01/22-wound dehiscence s/p angioplasty 01/20 DM PVD CAD- history of cabg ckd temps trending down duplex leg switch to meropenem await pathology Problem List - Problems (1) Osteomyelitis Code(s): M86.9 - OSTEOMYELITIS, UNSPECIFIED (2) PVD (peripheral vascular disease) Code(s): I73.9 - PERIPHERAL VASCULAR DISEASE, UNSPECIFIED (3) Diabetes Code(s): E11.9 - TYPE 2 DIABETES MELLITUS WITHOUT COMPLICATIONS (4) CAD (coronary artery disease) Code(s): I25.10 - ATHSCL HEART DISEASE OF [place] CORONARY ARTERY W/O ANG PCTRS (5) CKD (chronic kidney disease) Code(s): N18.9 - CHRONIC KIDNEY DISEASE, UNSPECIFIED
[2020-03-19] MEDS: VANCOMYCIN 1 GRAM (PRE-DOCKED) 1,000 MG/250 ML BAG IVPB SCH (15:24)
[2020-03-19] MEDS ORDERED: MEROPENEM 1 GM VIAL (RESTRICTED TO ID) IVPB ONE (16:37)
[2020-03-19] MEDS ORDERED: DEXTROSE 5%-WATER 100 ML IVPB ONE (16:37)
--- NOTE | 2020-03-19 17:01 | PN ---
Teaching Attending Note Name of Resident: Andrew Partida ATTENDING PHYSICIAN STATEMENT I saw and evaluated the patient. I reviewed the resident's note and discussed the case with the resident. I agree with the resident's findings and plan as documented. SUBJECTIVE: Patient is comfortable , denies any pain, no shortness of breath. OBJECTIVE: Vital Signs Temperature 98.6 F 03/19/20 14:37 Pulse Rate 111 H 03/19/20 14:37 Respiratory Rate 18 03/19/20 14:37 Blood Pressure 129/57 L 03/19/20 14:37 O2 Sat by Pulse Oximetry (%) 96 03/19/20 10:00 PE: per resident's note left lower extremity: no drainage, mild swelling but s/p recent sx, will monitor. CBCD WBC 11.7 K/mm3 (4.0-10.0) H 03/19/20 07:47 RBC 4.24 M/mm3 (4.00-5.60) 03/19/20 07:47 Hgb 10.3 GM/dL (11.7-16.9) L 03/19/20 07:47 Hct 32.4 % (35.4-49) L 03/19/20 07:47 MCV 76.2 fl (80-96) L 03/19/20 07:47 MCHC 32.0 g/dl (32.0-35.9) 03/19/20 07:47 RDW 20.2 % (11.9-15.9) H 03/19/20 07:47 Plt Count 194 K/MM3 (134-434) 03/19/20 07:47 MPV 8.3 fl (7.5-11.1) 03/19/20 07:47 CMP Sodium 137 mmol/L (136-145) 03/19/20 07:47 Potassium 3.8 mmol/L (3.5-5.1) 03/19/20 07:47 Chloride 104 mmol/L (98-107) 03/19/20 07:47 Carbon Dioxide 23 mmol/L (21-32) 03/19/20 07:47 Anion Gap 9 MMOL/L (8-16) 03/19/20 07:47 BUN 21.3 mg/dL (7-18) H 03/19/20 07:47 Creatinine 1.5 mg/dL (0.55-1.3) H 03/19/20 07:47 Random Glucose 132 mg/dL (74-106) H 03/19/20 07:47 Calcium 8.6 mg/dL (8.5-10.1) 03/19/20 07:47 Total Bilirubin 1.4 mg/dL (0.2-1) H 03/19/20 07:47 AST 13 U/L (15-37) L 03/19/20 07:47 ALT 21 U/L (13-61) 03/19/20 07:47 Alkaline Phosphatase 73 U/L (45-117) 03/19/20 07:47 Total Protein 6.4 g/dl (6.4-8.2) 03/19/20 07:47 Albumin 2.7 g/dl (3.4-5.0) L 03/19/20 07:47 Current Medications Generic Name Dose Route Start Last Admin Trade Name Freq PRN Reason Stop Dose Admin Acetaminophen 650 mg 03/17/20 17:42 03/19/20 06:09 Tylenol - PO 650 mg Q6H PRN Administration Fever Or Pain Apixaban 5 mg 03/16/20 22:00 03/19/20 09:14 Eliquis - PO 5 mg BID ELYSIA Administration Aspirin 81 mg 03/17/20 10:00 03/19/20 09:12 Asa - PO 81 mg DAILY ELYSIA Administration Atorvastatin Calcium 80 mg 03/16/20 22:00 03/18/20 21:13 Lipitor - PO 80 mg HS ELYSIA Administration Docusate Sodium 100 mg 03/16/20 22:00 03/19/20 09:12 Colace - PO 100 mg BID ELYSIA Administration Fentanyl 25 mcg 03/16/20 14:30 Sublimaze Injection - IVPUSH [id number] PRN PAIN-PACU ORDER X 4 DOSES ONLY Ferrous Sulfate 325 mg 03/16/20 22:00 03/19/20 09:15 Feosol - PO 325 mg BID ELYSIA Administration Furosemide 40 mg 03/17/20 06:00 03/19/20 14:24 Lasix - PO 40 mg BIDLASIX ELYSIA Administration Vancomycin HCl 1,000 mg in 250 mls @ 166.667 mls/hr 03/17/20 16:00 03/19/20 15:24 Vancomycin (Pre-Docked) IVPB 166.667 mls/hr Q24H ELYSIA Administration Protocol Meropenem 1 gm/ Dextrose 100 mls @ 200 mls/hr 03/19/20 18:00 IVPB Q8H-IV ELYSIA Insulin Aspart 1 vial 03/16/20 16:30 03/19/20 16:28 Novolog Vial Sliding Scale - SQ 4 units ACHS ELYSIA Administration Protocol Lisinopril 2.5 mg 03/17/20 10:00 03/19/20 09:14 Prinivil PO 2.5 mg DAILY ELYSIA Administration Metoprolol Tartrate 12.5 mg 03/16/20 22:00 03/19/20 09:12 Lopressor - PO 12.5 mg BID ELYSIA Administration Nystatin 1 applic 03/17/20 10:00 03/19/20 09:14 Nystop Powder - TP Not Given DAILY ELYSIA Ondansetron HCl 4 mg 03/16/20 14:30 Zofran Injection IVPUSH Q6H PRN NAUSEA AND/OR VOMITING Microbiology 03/17/20 16:15 Blood - Peripheral Venous Blood Culture - Preliminary NO GROWTH OBTAINED AFTER 48 HOURS, INCUBATION TO CONTINUE FOR 3 DAYS. 03/17/20 16:15 Blood - Peripheral Venous Blood Culture - Preliminary NO GROWTH OBTAINED AFTER 48 HOURS, INCUBATION TO CONTINUE FOR 3 DAYS. 03/16/20 Unknown Bone Gram Stain - Final 03/16/20 Unknown Bone Tissue Culture - Preliminary Pseudomonas Aeruginosa Group D Strep Or Entero Coccus 03/16/20 Unknown Bone Anaerobic Culture - Final NO ANAEROBES WERE ISOLATED 03/16/20 Unknown Foot - Left Gram Stain - Final 03/16/20 Unknown Foot - Left Wound Culture - Final Pseudomonas Aeruginosa 03/10/20 13:50 Blood - Peripheral Venous Blood Culture - Final NO GROWTH AFTER 5 DAYS INCUBATION 03/10/20 13:00 Blood - Peripheral Venous Blood Culture - Final NO GROWTH AFTER 5 DAYS INCUBATION 03/10/20 13:00 Foot - Left Gram Stain - Final 03/10/20 13:00 Foot - Left Wound Culture - Final Pseudomonas Aeruginosa Enterococcus Faecalis ASSESSMENT AND PLAN: This patient is a 64yom with Pmhx of CAD, s/p stents, OM s/p L 2nd toe amputation 01/23/20, HTN, DM, anemia, A fib, who presented with left foot OM. # s/p left foot transmetatarsal amputation POD#3 due to OM of the L 2nd and 3rd metatarsal Osteomyelitis by dr louis, will switch IV zosyn and vanco to meropenem since growing psuedomonues. Further care by water maintenance supervisor. ID on the case ,final cx. as above. #Hx of A fib: on home lopressor and continue home Eliquis # CAD: cont BB, ASA # DM: cont SSI. # CKD: Cr around base line. cont lisinopril # HTN: cont lopressor and lisinopril F/u operative cultures Plan for non-WB L foot with rolling walker, minimal heel weight bearing Dry sterile dressing with light compression applied to the left foot physical therapy evaluation discharge once stable to home with VNS as per patient's request. duplex leg. follow up
--- NOTE | 2020-03-19 17:19 | PATH ---
Surgical Pathology Report Patient Name: BORIS MCCORD [facility]. Rec. #: [id number] /Age/Gender: 1955 (Age: 64) / M Account: [id number] Location: [address] [place] [address]/[facility] Taken: 03/16/2020 Received: 03/16/2020 Reported: 03/19/2020 Physicians: Bob Ibrahim DPM Specimen(s) Received A: EXTREMITY AMPUTATION B: PROXIMAL BONE LEFT FOOT Clinical History Osteomyelitis/ulcer left foot Final Diagnosis A. FOOT, LEFT, TRANSMETATARSAL AMPUTATION: FOREFOOT WITH MARKED ACUTE INFLAMMATION AND NECROSIS INVOLVING PREVIOUS AMPUTATION SITE. UNDERLYING BONE WITH MODERATE ACUTE OSTEOMYELITIS. SURGICAL MARGINS ARE VIABLE. B. PROXIMAL BONE, FOOT, LEFT, BIOPSY: BONE WITHOUT SIGNIFICANT PATHOLOGIC FINDINGS. NO OSTEOMYELITIS IDENTIFIED. Electronically Signed Leny Chin M.D. Gross Description A. Received in formalin labeled "left foot," is a 10.0 x 8.5 x 4.5 cm product of a transmetatarsal amputation. The second digit appears to have been previously amputated. There is necrotic skin and soft tissue at the previous amputation site. Separately received within the same container are 5 metatarsal bones attached by soft tissue, consistent with the true bone margin. Labor Delivery Rn sections are submitted in 7 cassettes as follows: 1-lesion and bone underlying lesion, following decalcification; 2-skin and soft tissue margin; 3-bone margin from first digit, following decalcification; 4-bone margin from second digit, following decalcification; 5-bone margin from third digit, following decalcification; 6-bone margin from fourth digit, following decalcification; 7-bone margin from fifth digit, following decalcification. B. Received in formalin labeled "proximal bone left foot," is a 0.4 cm in greatest dimension zeng bone fragment. The specimen is submitted in toto in one cassette, following decalcification. 03/17/[address] [facility]17[facility]2020
[2020-03-19] MEDS: MEROPENEM 1 GM in DEXTROSE 5%-WATER 100 ML IVPB SCH (17:53)
--- NOTE | 2020-03-19 19:12 | PN ---
Physical Exam: SUBJECTIVE: No overnight events. Patient seen and examined. NAD. Denies pain in feet. OBJECTIVE: Vital Signs Period Temp Pulse Resp BP Sys/Jiménez Pulse Ox Last 24 Hr 98.6 F-100.7 F 74-114 18-18 109-129/57-82 96-99 GENERAL: Awake, alert, and fully oriented, in no acute distress. HEENT: NT/NC; conjunctiva clear. No lid lag, MMM NECK: Normal range of motion, supple without lymphadenopathy, JVD, or masses. LUNGS: Breath sounds equal, clear to auscultation bilaterally. No wheezes, and n o crackles. No accessory muscle use. HEART: irregularly irregular, normal S1 and S2 without murmur, rub or gallop. MIDLINE surgical incision scar ABDOMEN: Soft, nontender,normoactive bowel sounds, no guarding, no rebound, Umbilical hernia MUSCULOSKELETAL: Normal range of motion at all joints. No bony deformities or tenderness. No CVA tenderness. UPPER EXTREMITIES: 2+ pulses, warm, well-perfused. No cyanosis. No clubbing. No peripheral edema. Abrasions on R arm that pt attributes to rough sponge he's used for bathing since he didn't take a bath due to his ulcer LOWER EXTREMITIES: 2+ pulses, warm, well-perfused. Non-pitting edema b/l. Skin ulcers over shins b/l. scar on L leg from vessel harvesting for CABG. L foot wound: no erythema, or swelling, significant dried blood on wraps NEUROLOGICAL: Normal speech. PSYCHIATRIC: Cooperative. Good eye contact. Appropriate mood and affect. SKIN: Warm, dry, normal turgor, no rashes or lesions noted, normal capillary refill Laboratory Results - last 24 hr 03/18/20 03/19/20 03/19/20 21:11 06:05 07:47 WBC 11.7 H RBC 4.24 Hgb 10.3 L Hct 32.4 L MCV 76.2 L MCH 24.4 L MCHC 32.0 RDW 20.2 H Plt Count 194 MPV 8.3 Absolute Neuts (auto) 8.4 H Neutrophils % 71.4 Lymphocytes % 11.6 Monocytes % 12.5 H Eosinophils % 3.6 Basophils % 0.9 Nucleated RBC % 0 Sodium Potassium Chloride Carbon Dioxide Anion Gap BUN Creatinine Est GFR (CKD-EPI)AfAm Est GFR (CKD-EPI)NonAf POC Glucometer 225 139 Random Glucose Calcium Phosphorus Magnesium Total Bilirubin AST ALT Alkaline Phosphatase Total Protein Albumin 03/19/20 03/19/20 03/19/20 07:47 11:51 16:27 WBC RBC Hgb Hct MCV MCH MCHC RDW Plt Count MPV Absolute Neuts (auto) Neutrophils % Lymphocytes % Monocytes % Eosinophils % Basophils % Nucleated RBC % Sodium 137 Potassium 3.8 Chloride 104 Carbon Dioxide 23 Anion Gap 9 BUN 21.3 H Creatinine 1.5 H Est GFR (CKD-EPI)AfAm 56.61 Est GFR (CKD-EPI)NonAf 48.84 POC Glucometer 212 223 Random Glucose 132 H Calcium 8.6 Phosphorus 3.0 Magnesium 1.9 Total Bilirubin 1.4 H AST 13 L ALT 21 Alkaline Phosphatase 73 Total Protein 6.4 Albumin 2.7 L Active Medications Generic Name Dose Route Start Last Admin Trade Name Freq PRN Reason Stop Dose Admin Acetaminophen 650 mg 03/17/20 17:42 03/19/20 18:17 Tylenol - PO 650 mg Q6H PRN Administration Fever Or Pain Apixaban 5 mg 03/16/20 22:00 03/19/20 09:14 Eliquis - PO 5 mg BID ELYSIA Administration Aspirin 81 mg 03/17/20 10:00 03/19/20 09:12 Asa - PO 81 mg DAILY ELYSIA Administration Atorvastatin Calcium 80 mg 03/16/20 22:00 03/18/20 21:13 Lipitor - PO 80 mg HS ELYSIA Administration Docusate Sodium 100 mg 03/16/20 22:00 03/19/20 09:12 Colace - PO 100 mg BID ELYSIA Administration Fentanyl 25 mcg 03/16/20 14:30 Sublimaze Injection - IVPUSH [id number] PRN PAIN-PACU ORDER X 4 DOSES ONLY Ferrous Sulfate 325 mg 03/16/20 22:00 03/19/20 09:15 Feosol - PO 325 mg BID ELYSIA Administration Furosemide 40 mg 03/17/20 06:00 03/19/20 14:24 Lasix - PO 40 mg BIDLASIX ELYSIA Administration Vancomycin HCl 1,000 mg in 250 mls @ 166.667 mls/hr 03/17/20 16:00 03/19/20 15:24 Vancomycin (Pre-Docked) IVPB 166.667 mls/hr Q24H ELYSIA Administration Protocol Meropenem 1 gm/ Dextrose 100 mls @ 200 mls/hr 03/19/20 18:00 03/19/20 17:53 IVPB 200 mls/hr Q8H-IV ELYSIA Administration Insulin Aspart 1 vial 03/16/20 16:30 03/19/20 16:28 Novolog Vial Sliding Scale - SQ 4 units ACHS ELYSIA Administration Protocol Lisinopril 2.5 mg 03/17/20 10:00 03/19/20 09:14 Prinivil PO 2.5 mg DAILY EYLSIA Administration Metoprolol Tartrate 12.5 mg 03/16/20 22:00 03/19/20 09:12 Lopressor - PO 12.5 mg BID ELYSIA Administration Nystatin 1 applic 03/17/20 10:00 03/19/20 09:14 Nystop Powder - TP Not Given DAILY ELYSIA Ondansetron HCl 4 mg 03/16/20 14:30 Zofran Injection IVPUSH Q6H PRN NAUSEA AND/OR VOMITING CXR: no acute pathology. Foot x-ray: prominent plantar calcaneus spur. DUPLEX legs: no DVT Surgical Pathology Report: Forefront w/ marked acute inflammation & necrosis involving previous amputation site. Underlying bone w/ moderate acute osteomyelitis. Proximal bone: no osteomyelitis identified ASSESSMENT/PLAN: 64 YO M PMH s/p CABG (3 vessel) in 2016, 6 cardiac stents (last stenet 1 year ago, currently on Eliquis and aspirin), DM, HTN, afib, iron deficiency anemia, & CAD p/w drainage of L foot ulcer at site of previous amputation from 01/23/2020. Admitted for wound management and to r/o osteomyelitis. Now being managed for osteomyelitis. #Left foot ulcer: Osteomyelitis -MRI: osteomyelitis of 2nd metatarsal edema bone marrow distal aspect of 3rd metatarsal bone compatible w/ osteomyelitis -wound cx: group D strep (E faecalis) sensitive to penicllin & pseudomonas -s/p zosyn. -c/w vancomycin. Vancomycin Day#9. Vanc was restarted on 03/17. Get vanc trough b/f 4th dose on 03/20. -TMA POD#3 -100.7 fever at 18:00. another blood cx re-ordred. #Afib, CAD (s/p CABG, stent) -c/w home med of apixiban (5 mg PO BID) & ASA (81 mg PO daily) -EKG: Irregularly irregular, rate of 81; Rightward axis -c/w eliquis #DM -ISS -BGM #HTN -will c/w home medication of lisinopril 2.5 mg PO daily & Lasix because at baseline Cr. Will monitor Cr -c/w metoprolol #CKD Cr baseline 1.7. Today's Cr 1.5. will monitor Cr. d/c lasix if Cr increases #DVT ppx - SCD #FEN no IV fluids monitor w/ BMP diabetic/sodium controlled diet #DISPO maintain med surg Pt's family will decide on Subacute rehab vs. home with services depending on his physical therapy progress Visit type - Emergency Visit Emergency Visit: Yes ED Registration Date: 03/10/20 Care time: The patient presented to the Emergency Department on the above date and was hospitalized for further evaluation of their emergent condition. - New Patient This patient is new to me today: No - Critical Care Critical Care patient: No ATTENDING PHYSICIAN STATEMENT I saw and evaluated the patient. I reviewed the resident's note and discussed the case with the resident. I agree with the resident's findings and plan as documented. SUBJECTIVE: OBJECTIVE: ASSESSMENT AND PLAN:
[2020-03-19] MEDS: ATORVASTATIN CA 80 MG TABLET (FP) PO SCH (21:44)
[2020-03-20] MEDS ORDERED: DEXTROSE 5%-WATER 100 ML IVPB ONE ×3 (00:54→18:28)
[2020-03-20] MEDS ORDERED: MEROPENEM 1 GM VIAL (RESTRICTED TO ID) IVPB ONE ×3 (00:54→18:27)
[2020-03-20] MEDS: MEROPENEM 1 GM in DEXTROSE 5%-WATER 100 ML IVPB SCH ×3 (01:01→18:32)
[2020-03-20] MEDS: FUROSEMIDE 40 MG TABLET (FP) PO SCH ×2 (06:54→16:07)
[2020-03-20] MEDS: INSULIN SLIDING SCALE (NOVOLOG) 1 VIAL SQ SCH ×4 (06:54→22:19)
[2020-03-20 08:43] LABS: EOS % 4.7 % (0-4.5); HEMATOCRIT 34.1 % (35.4-49); HEMOGLOBIN 10.9 GM/dL (11.7-16.9); LYMPH % 9.8 % (8-40); MCH 24.2 pg (25.7-33.7); MCHC 31.9 g/dl (32.0-35.9); MONO % 11.9 % (3.8-10.2); NEUT % 72.6 % (42.8-82.8); PLATELET COUNT 232 K/MM3 (134-434); RBC 4.48 M/mm3 (4.00-5.60); RDW 20.2 % (11.9-15.9); WHITE BLOOD COUNT 8.9 K/mm3 (4.0-10.0)
[2020-03-20 09:05] LABS: POTASSIUM 3.9 mmol/L (3.5-5.1)
[2020-03-20 09:32] LABS: ALBUMIN 2.7 g/dl (3.4-5.0); BILIRUBIN,TOTAL 1.3 mg/dL (0.2-1); BLOOD UREA NITROGEN 23.6 mg/dL (7-18); CALCIUM 8.5 mg/dL (8.5-10.1); CREATININE 1.5 mg/dL (0.55-1.3); PHOSPHOROUS 3.1 mg/dL (2.5-4.9); TOT PROT 6.6 g/dl (6.4-8.2)
[2020-03-20] MEDS: LISINOPRIL 5 MG TABLET (FP) PO SCH (10:33)
[2020-03-20] MEDS: APIXABAN 5 MG TABLET PO SCH ×2 (10:33→22:19)
[2020-03-20] MEDS: METOPROLOL TARTRATE 25 MG TABLET (FP) PO SCH ×2 (10:33→22:19)
[2020-03-20] MEDS: FERROUS SO4 325 MG TABLET (FP) PO SCH ×2 (10:33→22:19)
[2020-03-20] MEDS: ASPIRIN 81 MG CHEWABLE TABLETS PO SCH (10:34)
[2020-03-20] MEDS: NYSTATIN POWDER 100,000 UNITS/GM - 15 GM TOPICAL POWDER TP SCH (10:35)
[2020-03-20] MEDS: DOCUSATE SODIUM 100 MG CAPSULE (FP) PO SCH ×2 (10:37→22:19)
--- NOTE | 2020-03-20 12:22 | PN ---
Progress Note (short form) - Note Progress Note: feels well no complaints +BM yesterday Vital Signs Period Temp Pulse Resp BP Sys/Jiménez Pulse Ox Last 24 Hr 97.7 F-100.7 F 80-115 18-18 108-131/57-86 96-100 cor-rrr lungs clear abd soft,nt ext +TMA- erythema of the forefoot no fluctuance, no drainage CBC, BMP 03/20/20 08:17 03/20/20 08:17 Microbiology 03/17/20 16:15 Blood - Peripheral Venous Blood Culture - Preliminary NO GROWTH OBTAINED AFTER 48 HOURS, INCUBATION TO CONTINUE FOR 3 DAYS. 03/17/20 16:15 Blood - Peripheral Venous Blood Culture - Preliminary NO GROWTH OBTAINED AFTER 48 HOURS, INCUBATION TO CONTINUE FOR 3 DAYS. 03/16/20 Unknown Bone Gram Stain - Final 03/16/20 Unknown Bone Tissue Culture - Preliminary Pseudomonas Aeruginosa Group D Strep Or Entero Coccus 03/16/20 Unknown Bone Anaerobic Culture - Final NO ANAEROBES WERE ISOLATED 03/16/20 Unknown Foot - Left Gram Stain - Final 03/16/20 Unknown Foot - Left Wound Culture - Final Pseudomonas Aeruginosa 03/10/20 13:50 Blood - Peripheral Venous Blood Culture - Final NO GROWTH AFTER 5 DAYS INCUBATION 03/10/20 13:00 Blood - Peripheral Venous Blood Culture - Final NO GROWTH AFTER 5 DAYS INCUBATION 03/10/20 13:00 Foot - Left Gram Stain - Final 03/10/20 13:00 Foot - Left Wound Culture - Final Pseudomonas Aeruginosa Enterococcus Faecalis a/p postop fever s/p TMA osteomyelitis s/p amputation of second toe left foot 01/22-wound dehiscence s/p angioplasty 01/20 DM PVD CAD- history of cabg ckd pathology with clean margins-proximal bone no osteo continue meropenem and vancomycin through the weekend podiatry f/u Problem List - Problems (1) Osteomyelitis Code(s): M86.9 - OSTEOMYELITIS, UNSPECIFIED (2) PVD (peripheral vascular disease) Code(s): I73.9 - PERIPHERAL VASCULAR DISEASE, UNSPECIFIED (3) Diabetes Code(s): E11.9 - TYPE 2 DIABETES MELLITUS WITHOUT COMPLICATIONS (4) CAD (coronary artery disease) Code(s): I25.10 - ATHSCL HEART DISEASE OF [place] CORONARY ARTERY W/O ANG PCTRS (5) CKD (chronic kidney disease) Code(s): N18.9 - CHRONIC KIDNEY DISEASE, UNSPECIFIED
--- NOTE | 2020-03-20 14:50 | PN ---
Physical Exam: SUBJECTIVE: No overnight events. Patient seen and examined. NAD. Denies pain. OBJECTIVE: Vital Signs Period Temp Pulse Resp BP Sys/Jiménez Pulse Ox Last 24 Hr 97.7 F-100.7 F 80-115 18-18 108-131/68-86 96-100 GENERAL: Awake, alert, and fully oriented, in no acute distress. HEENT: NT/NC; conjunctiva clear. No lid lag, MMM LUNGS: Breath sounds equal, clear to auscultation bilaterally. No wheezes, and no crackles. No accessory muscle use. HEART: irregularly irregular, normal S1 and S2 without murmur, rub or gallop. MIDLINE surgical incision scar ABDOMEN: Soft, nontender,normoactive bowel sounds, no guarding, no rebound, Umbilical hernia MUSCULOSKELETAL: Normal range of motion at all joints. No bony deformities or tenderness. No CVA tenderness. UPPER EXTREMITIES: 2+ pulses, warm, well-perfused. No cyanosis. No clubbing. No peripheral edema. LOWER EXTREMITIES: 2+ pulses, warm, well-perfused. Non-pitting edema b/l. Skin ulcers over shins b/l. scar on L leg from vessel harvesting for CABG. L foot wound: no erythema, or swelling, no discharge, Not TTP, only blood on gauze; no ne on wraps NEUROLOGICAL: Normal speech. PSYCHIATRIC: Cooperative. Good eye contact. Appropriate mood and affect. SKIN: Warm, dry, normal turgor, no rashes or lesions noted, normal capillary refill Laboratory Results - last 24 hr 03/19/20 03/19/20 03/20/20 16:27 21:41 06:52 WBC RBC Hgb Hct MCV MCH MCHC RDW Plt Count MPV Absolute Neuts (auto) Neutrophils % Lymphocytes % Monocytes % Eosinophils % Basophils % Nucleated RBC % Sodium Potassium Chloride Carbon Dioxide Anion Gap BUN Creatinine Est GFR (CKD-EPI)AfAm Est GFR (CKD-EPI)NonAf POC Glucometer 223 192 124 Random Glucose Calcium Phosphorus Magnesium Total Bilirubin AST ALT Alkaline Phosphatase Total Protein Albumin 03/20/20 03/20/20 03/20/20 08:17 08:17 11:59 WBC 8.9 RBC 4.48 Hgb 10.9 L Hct 34.1 L MCV 76.0 L MCH 24.2 L MCHC 31.9 L RDW 20.2 H Plt Count 232 MPV 8.0 Absolute Neuts (auto) 6.5 Neutrophils % 72.6 Lymphocytes % 9.8 Monocytes % 11.9 H Eosinophils % 4.7 H Basophils % 1.0 Nucleated RBC % 0 Sodium 135 L Potassium 3.9 Chloride 100 Carbon Dioxide 28 Anion Gap 7 L BUN 23.6 H Creatinine 1.5 H Est GFR (CKD-EPI)AfAm 56.61 Est GFR (CKD-EPI)NonAf 48.84 POC Glucometer 196 Random Glucose 124 H Calcium 8.5 Phosphorus 3.1 Magnesium 2.0 Total Bilirubin 1.3 H AST 16 ALT 23 Alkaline Phosphatase 77 Total Protein 6.6 Albumin 2.7 L Active Medications Generic Name Dose Route Start Last Admin Trade Name Freq PRN Reason Stop Dose Admin Acetaminophen 650 mg 03/17/20 17:42 03/19/20 18:17 Tylenol - PO 650 mg Q6H PRN Administration Fever Or Pain Apixaban 5 mg 03/16/20 22:00 03/20/20 10:33 Eliquis - PO 5 mg BID ELYSIA Administration Aspirin 81 mg 03/17/20 10:00 03/20/20 10:34 Asa - PO 81 mg DAILY ELYSIA Administration Atorvastatin Calcium 80 mg 03/16/20 22:00 03/19/20 21:44 Lipitor - PO 80 mg HS ELYSIA Administration Docusate Sodium 100 mg 03/16/20 22:00 03/20/20 10:37 Colace - PO 100 mg BID ELYSIA Administration Fentanyl 25 mcg 03/16/20 14:30 Sublimaze Injection - IVPUSH [id number] PRN PAIN-PACU ORDER X 4 DOSES ONLY Ferrous Sulfate 325 mg 03/16/20 22:00 03/20/20 10:33 Feosol - PO 325 mg BID ELYSIA Administration Furosemide 40 mg 03/17/20 06:00 03/20/20 06:54 Lasix - PO 40 mg BIDLASIX ELYSIA Administration Vancomycin HCl 1,000 mg in 250 mls @ 166.667 mls/hr 03/17/20 16:00 03/19/20 15:24 Vancomycin (Pre-Docked) IVPB 166.667 mls/hr Q24H LEYSIA Administration Protocol Meropenem 1 gm/ Dextrose 100 mls @ 200 mls/hr 03/19/20 18:00 03/20/20 10:32 IVPB 200 mls/hr Q8H-IV ELYSIA Administration Insulin Aspart 1 vial 03/16/20 16:30 03/20/20 12:51 Novolog Vial Sliding Scale - SQ 2 units ACHS ELYSIA Administration Protocol Lisinopril 2.5 mg 03/17/20 10:00 03/20/20 10:33 Prinivil PO 2.5 mg DAILY ELYSIA Administration Metoprolol Tartrate 12.5 mg 03/16/20 22:00 03/20/20 10:33 Lopressor - PO 12.5 mg BID ELYSIA Administration Nystatin 1 applic 03/17/20 10:00 03/20/20 10:35 Nystop Powder - TP Not Given DAILY ELYSIA Ondansetron HCl 4 mg 03/16/20 14:30 Zofran Injection IVPUSH Q6H PRN NAUSEA AND/OR VOMITING CXR: no acute pathology. Foot x-ray: prominent plantar calcaneus spur. DUPLEX legs: no DVT Surgical Pathology Report: Forefront w/ marked acute inflammation & necrosis involving previous amputation site. Underlying bone w/ moderate acute osteomyelitis. Proximal bone: no osteomyelitis identified ASSESSMENT/PLAN: 64 YO M PMH s/p CABG (3 vessel) in 2016, 6 cardiac stents (last stent 1 year ago, currently on Eliquis and aspirin), DM, HTN, afib, iron deficiency anemia, & CAD p/w drainage of L foot ulcer at site of previous amputation from 01/23/2020. Admitted for wound management and to r/o osteomyelitis. Now being managed for osteomyelitis. #Left foot ulcer: Osteomyelitis: TMA POD#4 -MRI: osteomyelitis of 2nd metatarsal edema bone marrow distal aspect of 3rd metatarsal bone compatible w/ osteomyelitis -wound cx: group D strep (E faecalis) sensitive to penicllin & pseudomonas -s/p zosyn. - Vancomycin Day#10. Vanc was restarted on 03/17. Vanc trough will be collected b/f 4th dose on 03/20 TODAY. Vanc trough: 7.7 -ID c/s appreciated: c/w meropenem 1 gm in D5W Q8H and vancomycin 1000 mg in 250 ml IVPG DAILY for the weekend -f/u blood cx results #Afib, CAD (s/p CABG, stent) -c/w home med of apixiban (5 mg PO BID) & ASA (81 mg PO daily) -EKG: Irregularly irregular, rate of 81; Rightward axis -c/w eliquis #DM -ISS -BGM #HTN -will c/w home medication of lisinopril 2.5 mg PO daily & Lasix because at baseline Cr. Will monitor Cr -c/w metoprolol #CKD Cr baseline 1.7. Today's Cr 1.5. will monitor Cr. d/c lasix if Cr increases #DVT ppx - SCD #FEN no IV fluids monitor w/ BMP diabetic/sodium controlled diet Visit type - Emergency Visit Emergency Visit: Yes ED Registration Date: 03/10/20 Care time: The patient presented to the Emergency Department on the above date and was hospitalized for further evaluation of their emergent condition. - New Patient This patient is new to me today: No - Critical Care Critical Care patient: No ATTENDING PHYSICIAN STATEMENT I saw and evaluated the patient. I reviewed the resident's note and discussed the case with the resident. I agree with the resident's findings and plan as documented. SUBJECTIVE: OBJECTIVE: ASSESSMENT AND PLAN:
--- NOTE | 2020-03-20 17:40 | PN ---
Teaching Attending Note Name of Resident: Andrew Partida ATTENDING PHYSICIAN STATEMENT I saw and evaluated the patient. I reviewed the resident's note and discussed the case with the resident. I agree with the resident's findings and plan as documented. SUBJECTIVE: Patient is comfortable with no acute distress. no fever or chills. OBJECTIVE: Vital Signs Temperature 98.1 F 03/20/20 14:00 Pulse Rate 97 H 03/20/20 14:00 Respiratory Rate 18 03/20/20 14:00 Blood Pressure 118/88 03/20/20 14:00 O2 Sat by Pulse Oximetry (%) 100 03/20/20 14:00 PE; per resident's note CBCD WBC 8.9 K/mm3 (4.0-10.0) 03/20/20 08:17 RBC 4.48 M/mm3 (4.00-5.60) 03/20/20 08:17 Hgb 10.9 GM/dL (11.7-16.9) L 03/20/20 08:17 Hct 34.1 % (35.4-49) L 03/20/20 08:17 MCV 76.0 fl (80-96) L 03/20/20 08:17 MCHC 31.9 g/dl (32.0-35.9) L 03/20/20 08:17 RDW 20.2 % (11.9-15.9) H 03/20/20 08:17 Plt Count 232 K/MM3 (134-434) 03/20/20 08:17 MPV 8.0 fl (7.5-11.1) 03/20/20 08:17 CMP Sodium 135 mmol/L (136-145) L 03/20/20 08:17 Potassium 3.9 mmol/L (3.5-5.1) 03/20/20 08:17 Chloride 100 mmol/L (98-107) 03/20/20 08:17 Carbon Dioxide 28 mmol/L (21-32) 03/20/20 08:17 Anion Gap 7 MMOL/L (8-16) L 03/20/20 08:17 BUN 23.6 mg/dL (7-18) H 03/20/20 08:17 Creatinine 1.5 mg/dL (0.55-1.3) H 03/20/20 08:17 Random Glucose 124 mg/dL (74-106) H 03/20/20 08:17 Calcium 8.5 mg/dL (8.5-10.1) 03/20/20 08:17 Total Bilirubin 1.3 mg/dL (0.2-1) H 03/20/20 08:17 AST 16 U/L (15-37) 03/20/20 08:17 ALT 23 U/L (13-61) 03/20/20 08:17 Alkaline Phosphatase 77 U/L (45-117) 03/20/20 08:17 Total Protein 6.6 g/dl (6.4-8.2) 03/20/20 08:17 Albumin 2.7 g/dl (3.4-5.0) L 03/20/20 08:17 Current Medications Generic Name Dose Route Start Last Admin Trade Name Freq PRN Reason Stop Dose Admin Acetaminophen 650 mg 03/17/20 17:42 03/19/20 18:17 Tylenol - PO 650 mg Q6H PRN Administration Fever Or Pain Apixaban 5 mg 03/16/20 22:00 03/20/20 10:33 Eliquis - PO 5 mg BID ELYSIA Administration Aspirin 81 mg 03/17/20 10:00 03/20/20 10:34 Asa - PO 81 mg DAILY ELYSIA Administration Atorvastatin Calcium 80 mg 03/16/20 22:00 03/19/20 21:44 Lipitor - PO 80 mg HS ELYSIA Administration Docusate Sodium 100 mg 03/16/20 22:00 03/20/20 10:37 Colace - PO 100 mg BID ELYSIA Administration Fentanyl 25 mcg 03/16/20 14:30 Sublimaze Injection - IVPUSH [id number] PRN PAIN-PACU ORDER X 4 DOSES ONLY Ferrous Sulfate 325 mg 03/16/20 22:00 03/20/20 10:33 Feosol - PO 325 mg BID ELYSIA Administration Furosemide 40 mg 03/17/20 06:00 03/20/20 16:07 Lasix - PO 40 mg BIDLASIX ELYSIA Administration Vancomycin HCl 1,000 mg in 250 mls @ 166.667 mls/hr 03/17/20 16:00 03/19/20 15:24 Vancomycin (Pre-Docked) IVPB 166.667 mls/hr Q24H ELYSIA Administration Protocol Meropenem 1 gm/ Dextrose 100 mls @ 200 mls/hr 07/16/20 18:00 03/20/20 10:32 IVPB 200 mls/hr Q8H-IV ELYSIA Administration Insulin Aspart 1 vial 03/16/20 16:30 03/20/20 12:51 Novolog Vial Sliding Scale - SQ 2 units ACHS ELYSIA Administration Protocol Lisinopril 2.5 mg 03/17/20 10:00 03/20/20 10:33 Prinivil PO 2.5 mg DAILY ELYSIA Administration Metoprolol Tartrate 12.5 mg 03/16/20 22:00 03/20/20 10:33 Lopressor - PO 12.5 mg BID ELYSIA Administration Nystatin 1 applic 03/17/20 10:00 03/20/20 10:35 Nystop Powder - TP Not Given DAILY ELYSIA Ondansetron HCl 4 mg 03/16/20 14:30 Zofran Injection IVPUSH Q6H PRN NAUSEA AND/OR VOMITING Microbiology 03/17/20 16:15 Blood - Peripheral Venous Blood Culture - Preliminary NO GROWTH OBTAINED AFTER 72 HOURS, INCUBATION TO CONTINUE FOR 2 DAYS. 03/17/20 16:15 Blood - Peripheral Venous Blood Culture - Preliminary NO GROWTH OBTAINED AFTER 72 HOURS, INCUBATION TO CONTINUE FOR 2 DAYS. 03/16/20 Unknown Bone Gram Stain - Final 03/16/20 Unknown Bone Tissue Culture - Final Pseudomonas Aeruginosa Enterococcus Faecalis 03/16/20 Unknown Bone Anaerobic Culture - Final NO ANAEROBES WERE ISOLATED 03/16/20 Unknown Foot - Left Gram Stain - Final 03/16/20 Unknown Foot - Left Wound Culture - Final Pseudomonas Aeruginosa 03/10/20 13:50 Blood - Peripheral Venous Blood Culture - Final NO GROWTH AFTER 5 DAYS INCUBATION 03/10/20 13:00 Blood - Peripheral Venous Blood Culture - Final NO GROWTH AFTER 5 DAYS INCUBATION 03/10/20 13:00 Foot - Left Gram Stain - Final 03/10/20 13:00 Foot - Left Wound Culture - Final Pseudomonas Aeruginosa Enterococcus Faecalis ASSESSMENT AND PLAN: This patient is a 64yom with Pmhx of CAD, s/p stents, OM s/p L 2nd toe amputation 01/23/20, HTN, DM, anemia, A fib, who presented with left foot OM. # s/p left foot transmetatarsal amputation POD#4 due to OM of the L 2nd and 3rd metatarsal Osteomyelitis by dr louis, will switch IV zosyn and vanco to meropenem since growing psuedomonues. Further care by research assistant professor. ID on the case ,final cx. as above. #Hx of A fib: on home lopressor and continue home Eliquis # CAD: cont BB, ASA # DM: cont SSI. # CKD: Cr around base line. cont lisinopril # HTN: cont lopressor and lisinopril Plan for non-WB L foot with rolling walker, minimal heel weight bearing Dry sterile dressing with light compression applied to the left foot physical therapy evaluation discharge once stable to home with VNS as per patient's request. pathology with clean margins-proximal bone no osteo continue meropenem and vancomycin through the weekend as per ID podiatry f/u
[2020-03-20] MEDS: VANCOMYCIN 1 GRAM (PRE-DOCKED) 1,000 MG/250 ML BAG IVPB SCH (18:32)
[2020-03-20] MEDS: ATORVASTATIN CA 80 MG TABLET (FP) PO SCH (22:19)
[2020-03-21] MEDS ORDERED: MEROPENEM 1 GM VIAL (RESTRICTED TO ID) IVPB ONE ×3 (01:38→17:33)
[2020-03-21] MEDS ORDERED: DEXTROSE 5%-WATER 100 ML IVPB ONE ×3 (01:39→17:33)
[2020-03-21] MEDS: MEROPENEM 1 GM in DEXTROSE 5%-WATER 100 ML IVPB SCH ×3 (01:41→17:45)
[2020-03-21] MEDS: FUROSEMIDE 40 MG TABLET (FP) PO SCH ×2 (06:17→13:55)
[2020-03-21] MEDS: INSULIN SLIDING SCALE (NOVOLOG) 1 VIAL SQ SCH ×4 (06:17→22:50)
[2020-03-21] MEDS: NYSTATIN POWDER 100,000 UNITS/GM - 15 GM TOPICAL POWDER TP SCH (09:14)
[2020-03-21] MEDS: DOCUSATE SODIUM 100 MG CAPSULE (FP) PO SCH ×2 (09:14→22:50)
[2020-03-21] MEDS: METOPROLOL TARTRATE 25 MG TABLET (FP) PO SCH ×2 (09:14→22:49)
[2020-03-21] MEDS: ASPIRIN 81 MG CHEWABLE TABLETS PO SCH (09:14)
[2020-03-21] MEDS: FERROUS SO4 325 MG TABLET (FP) PO SCH ×2 (09:14→22:49)
[2020-03-21] MEDS: APIXABAN 5 MG TABLET PO SCH ×2 (09:14→22:50)
[2020-03-21] MEDS: LISINOPRIL 5 MG TABLET (FP) PO SCH (09:14)
--- NOTE | 2020-03-21 10:37 | PN ---
Progress Note (short form) - Note Progress Note: Patient is comfortable , no further fever. Vital Signs Temperature 97.9 F 03/21/20 06:00 Pulse Rate 104 H 03/21/20 06:00 Respiratory Rate 18 03/21/20 06:00 Blood Pressure 121/68 03/21/20 06:00 O2 Sat by Pulse Oximetry (%) 98 03/21/20 06:00 GENERAL: The patient is awake, alert, and fully oriented, in no acute distress. HEAD: Normal with no signs of trauma. EYES: PERRL, extraocular movements intact, sclera anicteric, conjunctiva clear. ENT: Ears normal, oropharynx clear without exudates, moist mucous membranes. NECK: Trachea midline, full range of motion, supple. LUNGS: Breath sounds equal, clear to auscultation bilaterally, no wheezes, no crackles, no accessory muscle use. HEART: Regular rate and rhythm, S1, S2 without murmur, rub or gallop. ABDOMEN: Soft, nontender, nondistended, normoactive bowel sounds, no guarding, no rebound, no hepatosplenomegaly, no masses. EXTREMITIES: 2+ pulses, warm, well-perfused, left foot wound care by garnishment specialist . NEUROLOGICAL: Cranial nerves II through XII grossly intact. Normal speech, gait not observed. PSYCH: Normal mood, normal affect. SKIN: Warm, dry, normal turgor, no rashes or lesions noted CBCD WBC 8.9 K/mm3 (4.0-10.0) 03/20/20 08:17 RBC 4.48 M/mm3 (4.00-5.60) 03/20/20 08:17 Hgb 10.9 GM/dL (11.7-16.9) L 03/20/20 08:17 Hct 34.1 % (35.4-49) L 03/20/20 08:17 MCV 76.0 fl (80-96) L 03/20/20 08:17 MCHC 31.9 g/dl (32.0-35.9) L 03/20/20 08:17 RDW 20.2 % (11.9-15.9) H 03/20/20 08:17 Plt Count 232 K/MM3 (134-434) 03/20/20 08:17 MPV 8.0 fl (7.5-11.1) 03/20/20 08:17 CMP Sodium 135 mmol/L (136-145) L 03/20/20 08:17 Potassium 3.9 mmol/L (3.5-5.1) 03/20/20 08:17 Chloride 100 mmol/L (98-107) 03/20/20 08:17 Carbon Dioxide 28 mmol/L (21-32) 03/20/20 08:17 Anion Gap 7 MMOL/L (8-16) L 03/20/20 08:17 BUN 23.6 mg/dL (7-18) H 03/20/20 08:17 Creatinine 1.5 mg/dL (0.55-1.3) H 03/20/20 08:17 Random Glucose 124 mg/dL (74-106) H 03/20/20 08:17 Calcium 8.5 mg/dL (8.5-10.1) 03/20/20 08:17 Total Bilirubin 1.3 mg/dL (0.2-1) H 03/20/20 08:17 AST 16 U/L (15-37) 03/20/20 08:17 ALT 23 U/L (13-61) 03/20/20 08:17 Alkaline Phosphatase 77 U/L (45-117) 03/20/20 08:17 Total Protein 6.6 g/dl (6.4-8.2) 03/20/20 08:17 Albumin 2.7 g/dl (3.4-5.0) L 03/20/20 08:17 Current Medications Generic Name Dose Route Start Last Admin Trade Name Letitia PRN Reason Stop Dose Admin Acetaminophen 650 mg 03/17/20 17:42 03/19/20 18:17 Tylenol - PO 650 mg Q6H PRN Administration Fever Or Pain Apixaban 5 mg 03/16/20 22:00 03/21/20 09:14 Eliquis - PO 5 mg BID ELYSIA Administration Aspirin 81 mg 03/17/20 10:00 03/21/20 09:14 Asa - PO 81 mg DAILY ELYSIA Administration Atorvastatin Calcium 80 mg 03/16/20 22:00 03/20/20 22:19 Lipitor - PO 80 mg HS ELYSIA Administration Docusate Sodium 100 mg 03/16/20 22:00 03/21/20 09:14 Colace - PO 100 mg BID ELYSIA Administration Fentanyl 25 mcg 03/16/20 14:30 Sublimaze Injection - IVPUSH [id number] PRN PAIN-PACU ORDER X 4 DOSES ONLY Ferrous Sulfate 325 mg 03/16/20 22:00 03/21/20 09:14 Feosol - PO 325 mg BID ELYSIA Administration Furosemide 40 mg 03/17/20 06:00 03/21/20 06:17 Lasix - PO 40 mg BIDLASIX ELYSIA Administration Vancomycin HCl 1,000 mg in 250 mls @ 166.667 mls/hr 03/17/20 16:00 03/20/20 18:32 Vancomycin (Pre-Docked) IVPB 166.667 mls/hr Q24H ELYSIA Administration Protocol Meropenem 1 gm/ Dextrose 100 mls @ 200 mls/hr 03/19/20 18:00 03/21/20 09:13 IVPB 200 mls/hr Q8H-IV ELYSIA Administration Insulin Aspart 1 vial 03/16/20 16:30 03/21/20 06:17 Novolog Vial Sliding Scale - SQ Not Given ACHS [facility] Protocol Lisinopril 2.5 mg 03/17/20 10:00 03/21/20 09:14 Prinivil PO 2.5 mg DAILY ELYSIA Administration Metoprolol Tartrate 12.5 mg 03/16/20 22:00 03/21/20 09:14 Lopressor - PO 12.5 mg BID ELYSIA Administration Nystatin 1 applic 03/17/20 10:00 03/21/20 09:14 Nystop Powder - TP 1 applic DAILY ELYSIA Administration Ondansetron HCl 4 mg 03/16/20 14:30 Zofran Injection IVPUSH Q6H PRN NAUSEA AND/OR VOMITING Home Medications Medication Instructions Recorded Empagliflozin [Jardiance] 10 mg PO DAILY 01/14/20 Furosemide [Lasix] 40 mg PO BID 01/14/20 Lisinopril [Zestril] 2.5 mg PO DAILY 01/14/20 Sitagliptin Phosphate [Januvia] 25 mg PO DAILY 01/14/20 Baclofen 10 mg PO BID 01/23/20 Apixaban [Eliquis -] 5 mg PO BID #60 tablet 01/24/20 Aspirin [ASA -] 81 mg PO DAILY tab.chew 01/24/20 Atorvastatin Ca [Lipitor] 80 mg PO HS #30 tablet 01/24/20 Docusate Sodium [Colace -] 100 mg PO BID #40 capsule 01/24/20 Ferrous Sulfate [Feosol] 325 mg PO BID #60 ud 01/24/20 Metoprolol Tartrate [Lopressor -] 12.5 mg PO BID #60 tablet 01/24/20 Microbiology 03/19/20 21:00 Blood - Peripheral Venous Blood Culture - Preliminary NO GROWTH OBTAINED AFTER 24 HOURS, INCUBATION TO CONTINUE FOR 4 DAYS. 03/19/20 20:30 Blood - Peripheral Venous Blood Culture - Preliminary NO GROWTH OBTAINED AFTER 24 HOURS, INCUBATION TO CONTINUE FOR 4 DAYS. 03/17/20 16:15 Blood - Peripheral Venous Blood Culture - Preliminary NO GROWTH OBTAINED AFTER 72 HOURS, INCUBATION TO CONTINUE FOR 2 DAYS. 03/17/20 16:15 Blood - Peripheral Venous Blood Culture - Preliminary NO GROWTH OBTAINED AFTER 72 HOURS, INCUBATION TO CONTINUE FOR 2 DAYS. 03/16/20 Unknown Bone Gram Stain - Final 03/16/20 Unknown Bone Tissue Culture - Final Pseudomonas Aeruginosa Enterococcus Faecalis 03/16/20 Unknown Bone Anaerobic Culture - Final NO ANAEROBES WERE ISOLATED 03/16/20 Unknown Foot - Left Gram Stain - Final 03/16/20 Unknown Foot - Left Wound Culture - Final Pseudomonas Aeruginosa 03/10/20 13:50 Blood - Peripheral Venous Blood Culture - Final NO GROWTH AFTER 5 DAYS INCUBATION 03/10/20 13:00 Blood - Peripheral Venous Blood Culture - Final NO GROWTH AFTER 5 DAYS INCUBATION 03/10/20 13:00 Foot - Left Gram Stain - Final 03/10/20 13:00 Foot - Left Wound Culture - Final Pseudomonas Aeruginosa Enterococcus Faecalis Assessment and plan: This patient is a 64yom with Pmhx of CAD, s/p stents, OM s/p L 2nd toe amputation 01/23/20, HTN, DM, anemia, A fib, who presented with left foot OM. # s/p left foot transmetatarsal amputation POD#5 due to OM of the L 2nd and 3rd metatarsal Osteomyelitis by dr louis, s/p willow and now on vanco and meropenem since growing psuedomonues. Further care by garnishment specialist and daily evaluation by the wound care. ID on the case ,final cx. as above. #Hx of A fib: on home lopressor and continue home Eliquis # CAD: cont BB, ASA # DM: cont SSI. # CKD: Cr around base line. cont lisinopril # HTN: cont lopressor and lisinopril Plan for non-WB L foot with rolling walker, minimal heel weight bearing Dry sterile dressing with light compression applied to the left foot physical therapy evaluation discharge once stable to home with VNS as per patient's request. pathology with clean margins-proximal bone no osteo continue meropenem and vancomycin through the weekend as per ID podiatry f/u Visit type - Emergency Visit Emergency Visit: Yes ED Registration Date: 03/10/20 Care time: The patient presented to the Emergency Department on the above date and was hospitalized for further evaluation of their emergent condition. - New Patient This patient is new to me today: No - Critical Care Critical Care patient: No - Discharge Referral Referred to [facility] No
--- NOTE | 2020-03-21 13:10 | PN ---
Progress Note (short form) - Note Progress Note: Podiatry F/U: Seen/evaluated at bedside NAD. Currently not febrile and was febrile overnight. Doing well. Minimal pain to the foot. Dressing c/d/i. TAMMY: L foot: post-surgical dressing clean, dry, intact. There is no active bleeding, minimal strikethrough noted; minimal POP to medial aspect, there is a mild increase in duskiness to the dorsal foot; no edema, no active drainage noted, minimal erythema noted consistent with post operative state Imp: 64 year old diabetic PVD male s/p left foot transmetatarsal amputation Evaluated and reviewed Afebrile overnight labs pending NWB to the foot likely rehab continue iv abx per ID Recc HBOT to prevent flap failure Per patient likely d/c on monday will f/u as outpatient in the [facility]
[2020-03-21] MEDS: VANCOMYCIN 1 GRAM (PRE-DOCKED) 1,000 MG/250 ML BAG IVPB SCH (16:02)
--- NOTE | 2020-03-21 19:09 | PN ---
Progress Note, Physician History of Present Illness: AWAKE IN BED S/P TMA NO C/O FOOT PAIN TEMPS DOWN DRESSING IN PLACE NOT REMOVED - Current Medication List Current Medications: Active Medications Acetaminophen (Tylenol -) 650 mg PO Q6H PRN PRN Reason: Fever Or Pain Last Admin: 03/19/20 18:17 Dose: 650 mg Documented by: Apixaban (Eliquis -) 5 mg PO BID [facility] Last Admin: 03/21/20 09:14 Dose: 5 mg Documented by: Aspirin (Asa -) 81 mg PO DAILY [facility] Last Admin: 03/21/20 09:14 Dose: 81 mg Documented by: Atorvastatin Calcium (Lipitor -) 80 mg PO HS [facility] Last Admin: 03/20/20 22:19 Dose: 80 mg Documented by: Docusate Sodium (Colace -) 100 mg PO BID [facility] Last Admin: 03/21/20 09:14 Dose: 100 mg Documented by: Fentanyl (Sublimaze Injection -) 25 mcg IVPUSH [id number] PRN PRN Reason: PAIN-PACU ORDER X 4 DOSES ONLY Ferrous Sulfate (Feosol -) 325 mg PO BID [facility] Last Admin: 03/21/20 09:14 Dose: 325 mg Documented by: Furosemide (Lasix -) 40 mg PO BIDLASIX [facility] Last Admin: 03/21/20 13:55 Dose: 40 mg Documented by: Vancomycin HCl (Vancomycin (Pre-Docked)) 1,000 mg in 250 mls @ 166.667 mls/hr IVPB Q24H [facility]; Protocol Last Admin: 03/21/20 16:02 Dose: 166.667 mls/hr Documented by: Meropenem 1 gm/ Dextrose 100 mls @ 200 mls/hr IVPB Q8H-IV [facility] Last Admin: 03/21/20 17:45 Dose: 200 mls/hr Documented by: Insulin Aspart (Novolog Vial Sliding Scale -) 1 vial SQ ACHS [facility]; Protocol Last Admin: 03/21/20 17:03 Dose: 2 units Documented by: Lisinopril (Prinivil) 2.5 mg PO DAILY [facility] Last Admin: 03/21/20 09:14 Dose: 2.5 mg Documented by: Metoprolol Tartrate (Lopressor -) 12.5 mg PO BID [facility] Last Admin: 03/21/20 09:14 Dose: 12.5 mg Documented by: Nystatin (Nystop Powder -) 1 applic TP DAILY [facility] Last Admin: 03/21/20 09:14 Dose: 1 applic Documented by: Ondansetron HCl (Zofran Injection) 4 mg IVPUSH Q6H PRN PRN Reason: NAUSEA AND/OR VOMITING - Objective Vital Signs: Vital Signs Temperature 97.6 F 03/21/20 18:00 Pulse Rate 98 H 03/21/20 18:00 Respiratory Rate 18 03/21/20 18:00 Blood Pressure 117/75 03/21/20 18:00 O2 Sat by Pulse Oximetry (%) 97 03/21/20 18:00 Constitutional: Yes: No Distress Eyes: Yes: Conjunctiva Clear Cardiovascular: Yes: Regular Rate and Rhythm, S1, S2 Respiratory: Yes: CTA Bilaterally Gastrointestinal: Yes: Normal Bowel Sounds, Soft Extremities: Yes: Other (DRESSING IN PLACE) Labs: CBC, BMP 03/20/20 08:17 03/20/20 08:17 INR, PTT INR 1.39 (0.83-1.09) H 03/16/20 07:20 Assessment/Plan POST OP TMA FEVER RESOLVED AZOTEMIA CONTINUE MEROPENEM/ VANCOMYCIN LOCL WOUND CARE
[2020-03-21] MEDS: ATORVASTATIN CA 80 MG TABLET (FP) PO SCH (22:50)
[2020-03-22] MEDS ORDERED: MEROPENEM 1 GM VIAL (RESTRICTED TO ID) IVPB ONE ×3 (02:12→17:23)
[2020-03-22] MEDS ORDERED: DEXTROSE 5%-WATER 100 ML IVPB ONE ×3 (02:13→17:23)
[2020-03-22] MEDS: MEROPENEM 1 GM in DEXTROSE 5%-WATER 100 ML IVPB SCH ×3 (02:25→17:30)
[2020-03-22] MEDS: FUROSEMIDE 40 MG TABLET (FP) PO SCH ×2 (06:07→15:28)
[2020-03-22] MEDS: INSULIN SLIDING SCALE (NOVOLOG) 1 VIAL SQ SCH ×4 (06:07→21:37)
[2020-03-22] MEDS: LISINOPRIL 5 MG TABLET (FP) PO SCH (09:56)
[2020-03-22] MEDS: METOPROLOL TARTRATE 25 MG TABLET (FP) PO SCH ×2 (09:56→21:36)
[2020-03-22] MEDS: NYSTATIN POWDER 100,000 UNITS/GM - 15 GM TOPICAL POWDER TP SCH (09:57)
[2020-03-22] MEDS: ASPIRIN 81 MG CHEWABLE TABLETS PO SCH (09:57)
[2020-03-22] MEDS: FERROUS SO4 325 MG TABLET (FP) PO SCH ×2 (09:57→21:37)
[2020-03-22] MEDS: APIXABAN 5 MG TABLET PO SCH ×2 (09:57→21:37)
[2020-03-22] MEDS: DOCUSATE SODIUM 100 MG CAPSULE (FP) PO SCH ×2 (09:57→21:36)
[2020-03-22] MEDS: VANCOMYCIN 1 GRAM (PRE-DOCKED) 1,000 MG/250 ML BAG IVPB SCH (15:28)
--- NOTE | 2020-03-22 18:02 | PN ---
Teaching Attending Note Name of Resident: Angelica Fountain ATTENDING PHYSICIAN STATEMENT I saw and evaluated the patient. I reviewed the resident's note and discussed the case with the resident. I agree with the resident's findings and plan as documented. SUBJECTIVE: Patient is feeling better with no acute distress. feels good, no fever or chills overnight. OBJECTIVE: Vital Signs Temperature 98.3 F 03/22/20 14:00 Pulse Rate 118 H 03/22/20 14:00 Respiratory Rate 18 03/22/20 14:00 Blood Pressure 116/53 L 03/22/20 14:00 O2 Sat by Pulse Oximetry (%) 100 03/22/20 14:00 PE: per resident's note CBCD WBC 8.9 K/mm3 (4.0-10.0) 03/20/20 08:17 RBC 4.48 M/mm3 (4.00-5.60) 03/20/20 08:17 Hgb 10.9 GM/dL (11.7-16.9) L 03/20/20 08:17 Hct 34.1 % (35.4-49) L 03/20/20 08:17 MCV 76.0 fl (80-96) L 03/20/20 08:17 MCHC 31.9 g/dl (32.0-35.9) L 03/20/20 08:17 RDW 20.2 % (11.9-15.9) H 03/20/20 08:17 Plt Count 232 K/MM3 (134-434) 03/20/20 08:17 MPV 8.0 fl (7.5-11.1) 03/20/20 08:17 CMP Sodium 135 mmol/L (136-145) L 03/20/20 08:17 Potassium 3.9 mmol/L (3.5-5.1) 03/20/20 08:17 Chloride 100 mmol/L (98-107) 03/20/20 08:17 Carbon Dioxide 28 mmol/L (21-32) 03/20/20 08:17 Anion Gap 7 MMOL/L (8-16) L 03/20/20 08:17 BUN 23.6 mg/dL (7-18) H 03/20/20 08:17 Creatinine 1.5 mg/dL (0.55-1.3) H 03/20/20 08:17 Random Glucose 124 mg/dL (74-106) H 03/20/20 08:17 Calcium 8.5 mg/dL (8.5-10.1) 03/20/20 08:17 Total Bilirubin 1.3 mg/dL (0.2-1) H 03/20/20 08:17 AST 16 U/L (15-37) 03/20/20 08:17 ALT 23 U/L (13-61) 03/20/20 08:17 Alkaline Phosphatase 77 U/L (45-117) 03/20/20 08:17 Total Protein 6.6 g/dl (6.4-8.2) 03/20/20 08:17 Albumin 2.7 g/dl (3.4-5.0) L 03/20/20 08:17 Current Medications Generic Name Dose Route Start Last Admin Trade Name Freq PRN Reason Stop Dose Admin Acetaminophen 650 mg 03/17/20 17:42 03/19/20 18:17 Tylenol - PO 650 mg Q6H PRN Administration Fever Or Pain Apixaban 5 mg 03/16/20 22:00 03/22/20 09:57 Eliquis - PO 5 mg BID [facility] Administration Aspirin 81 mg 03/17/20 10:00 03/22/20 09:57 Asa - PO 81 mg DAILY [facility] Administration Atorvastatin Calcium 80 mg 03/16/20 22:00 03/21/20 22:50 Lipitor - PO 80 mg HS [facility] Administration Docusate Sodium 100 mg 03/16/20 22:00 03/22/20 09:57 Colace - PO 100 mg BID [facility] Administration Fentanyl 25 mcg 03/16/20 14:30 Sublimaze Injection - IVPUSH [id number] PRN PAIN-PACU ORDER X 4 DOSES ONLY Ferrous Sulfate 325 mg 03/16/20 22:00 03/22/20 09:57 Feosol - PO 325 mg BID [facility] Administration Furosemide 40 mg 03/17/20 06:00 03/22/20 15:28 Lasix - PO 40 mg BIDLASIX [facility] Administration Vancomycin HCl 1,000 mg in 250 mls @ 166.667 mls/hr 03/17/20 16:00 03/22/20 15:28 Vancomycin (Pre-Docked) IVPB 166.667 mls/hr Q24H [facility] Administration Protocol Meropenem 1 gm/ Dextrose 100 mls @ 200 mls/hr 03/19/20 18:00 03/22/20 17:30 IVPB 200 mls/hr Q8H-IV [facility] Administration Insulin Aspart 1 vial 03/16/20 16:30 03/22/20 16:23 Novolog Vial Sliding Scale - SQ 4 units ACHS [facility] Administration Protocol Lisinopril 2.5 mg 03/17/20 10:00 03/22/20 09:56 Prinivil PO 2.5 mg DAILY [facility] Administration Metoprolol Tartrate 12.5 mg 03/16/20 22:00 03/22/20 09:56 Lopressor - PO 12.5 mg BID [facility] Administration Nystatin 1 applic 03/17/20 10:00 03/22/20 09:57 Nystop Powder - TP 1 applic DAILY [facility] Administration Ondansetron HCl 4 mg 03/16/20 14:30 Zofran Injection IVPUSH Q6H PRN NAUSEA AND/OR VOMITING Home Medications Medication Instructions Recorded Empagliflozin [Jardiance] 10 mg PO DAILY 01/14/20 Furosemide [Lasix] 40 mg PO BID 01/14/20 Lisinopril [Zestril] 2.5 mg PO DAILY 01/14/20 Sitagliptin Phosphate [Januvia] 25 mg PO DAILY 01/14/20 Baclofen 10 mg PO BID 01/23/20 Apixaban [Eliquis -] 5 mg PO BID #60 tablet 01/24/20 Aspirin [ASA -] 81 mg PO DAILY tab.chew 01/24/20 Atorvastatin Ca [Lipitor] 80 mg PO HS #30 tablet 01/24/20 Docusate Sodium [Colace -] 100 mg PO BID #40 capsule 01/24/20 Ferrous Sulfate [Feosol] 325 mg PO BID #60 ud 01/24/20 Metoprolol Tartrate [Lopressor -] 12.5 mg PO BID #60 tablet 01/24/20 Microbiology 03/17/20 16:15 Blood - Peripheral Venous Blood Culture - Final NO GROWTH AFTER 5 DAYS INCUBATION 03/17/20 16:15 Blood - Peripheral Venous Blood Culture - Final NO GROWTH AFTER 5 DAYS INCUBATION 03/19/20 21:00 Blood - Peripheral Venous Blood Culture - Preliminary NO GROWTH OBTAINED AFTER 48 HOURS, INCUBATION TO CONTINUE FOR 3 DAYS. 03/19/20 20:30 Blood - Peripheral Venous Blood Culture - Preliminary NO GROWTH OBTAINED AFTER 48 HOURS, INCUBATION TO CONTINUE FOR 3 DAYS. 03/16/20 Unknown Bone Gram Stain - Final 03/16/20 Unknown Bone Tissue Culture - Final Pseudomonas Aeruginosa Enterococcus Faecalis 03/16/20 Unknown Bone Anaerobic Culture - Final NO ANAEROBES WERE ISOLATED 03/16/20 Unknown Foot - Left Gram Stain - Final 03/16/20 Unknown Foot - Left Wound Culture - Final Pseudomonas Aeruginosa 03/10/20 13:50 Blood - Peripheral Venous Blood Culture - Final NO GROWTH AFTER 5 DAYS INCUBATION 03/10/20 13:00 Blood - Peripheral Venous Blood Culture - Final NO GROWTH AFTER 5 DAYS INCUBATION 03/10/20 13:00 Foot - Left Gram Stain - Final 03/10/20 13:00 Foot - Left Wound Culture - Final Pseudomonas Aeruginosa Enterococcus Faecalis ASSESSMENT AND PLAN: This patient is a 64yom with Pmhx of CAD, s/p stents, OM s/p L 2nd toe amputation 01/23/20, HTN, DM, anemia, A fib, who presented with left foot OM. # s/p left foot transmetatarsal amputation POD#5 due to OM of the L 2nd and 3rd metatarsal Osteomyelitis by dr louis, s/p willow and now on vanco and meropenem since growing psuedomonues. Further care by commercial real estate lender and daily evaluation by the wound care. ID on the case ,continue IV antibiotics as per ID #Hx of A fib: on home lopressor and continue home Eliquis # CAD: cont BB, ASA # DM: cont SSI. # CKD: Cr around base line. cont lisinopril # HTN: cont lopressor and lisinopril Plan for non-WB L foot with rolling walker, minimal heel weight bearing Dry sterile dressing with light compression applied to the left foot physical therapy evaluation discharge once stable to home with VNS as per patient's request. pathology with clean margins-proximal bone no osteo continue meropenem and vancomycin through the weekend as per ID podiatry f/u
--- NOTE | 2020-03-22 20:28 | PN ---
Physical Exam: SUBJECTIVE: Patient seen and examined at bedside. no acute complaints. OBJECTIVE: Vital Signs Period Temp Pulse Resp BP Sys/Jiménez Pulse Ox Last 24 Hr 98 F-98.8 F 97-118 18-18 111-140/53-78 95-100 GENERAL: The patient is awake, alert, and fully oriented, in no acute distress. HEAD: Normal with no signs of trauma. EYES: PERRL, extraocular movements intact, sclera anicteric LUNGS: Breath sounds equal, clear to auscultation bilaterally, no accessory muscle use. HEART: Regular rate and rhythm, S1, S2 ABDOMEN: Soft, nontender, nondistended, normoactive bowel sounds, no guarding EXTREMITIES:L TMA Laboratory Results - last 24 hr 03/21/20 03/22/20 03/22/20 22:48 06:05 12:20 POC Glucometer 208 119 212 03/22/20 16:22 POC Glucometer 245 Active Medications Generic Name Dose Route Start Last Admin Trade Name Freq PRN Reason Stop Dose Admin Acetaminophen 650 mg 03/17/20 17:42 03/19/20 18:17 Tylenol - PO 650 mg Q6H PRN Administration Fever Or Pain Apixaban 5 mg 03/16/20 22:00 03/22/20 09:57 Eliquis - PO 5 mg BID [facility] Administration Aspirin 81 mg 03/17/20 10:00 03/22/20 09:57 Asa - PO 81 mg DAILY [facility] Administration Atorvastatin Calcium 80 mg 03/16/20 22:00 03/21/20 22:50 Lipitor - PO 80 mg HS [facility] Administration Docusate Sodium 100 mg 03/16/20 22:00 03/22/20 09:57 Colace - PO 100 mg BID [facility] Administration Fentanyl 25 mcg 03/16/20 14:30 Sublimaze Injection - IVPUSH [id number] PRN PAIN-PACU ORDER X 4 DOSES ONLY Ferrous Sulfate 325 mg 03/16/20 22:00 03/22/20 09:57 Feosol - PO 325 mg BID [facility] Administration Furosemide 40 mg 03/17/20 06:00 03/22/20 15:28 Lasix - PO 40 mg BIDLASIX [facility] Administration Vancomycin HCl 1,000 mg in 250 mls @ 166.667 mls/hr 03/17/20 16:00 03/22/20 15:28 Vancomycin (Pre-Docked) IVPB 166.667 mls/hr Q24H [facility] Administration Protocol Meropenem 1 gm/ Dextrose 100 mls @ 200 mls/hr 03/19/20 18:00 03/22/20 17:30 IVPB 200 mls/hr Q8H-IV [facility] Administration Insulin Aspart 1 vial 03/16/20 16:30 03/22/20 16:23 Novolog Vial Sliding Scale - SQ 4 units ACHS [facility] Administration Protocol Lisinopril 2.5 mg 03/17/20 10:00 03/22/20 09:56 Prinivil PO 2.5 mg DAILY [facility] Administration Metoprolol Tartrate 12.5 mg 03/16/20 22:00 03/22/20 09:56 Lopressor - PO 12.5 mg BID [facility] Administration Nystatin 1 applic 03/17/20 10:00 03/22/20 09:57 Nystop Powder - TP 1 applic DAILY [facility] Administration Ondansetron HCl 4 mg 03/16/20 14:30 Zofran Injection IVPUSH Q6H PRN NAUSEA AND/OR VOMITING ASSESSMENT/PLAN: 64 yo M PMH CAD( s/p CABG,cardiac stent), DM, HTN, afib( eliquis), iron deficiency anemia, p/w drainage of L foot ulcer at site of previous amputation from 01/23/2020. Admitted for osteomyelitis.s/p TMA 03/16 Osteomyelitis s/p TMA -MRI: osteomyelitis of 2nd metatarsal edema bone marrow distal aspect of 3rd metatarsal bone compatible w/ osteomyelitis -wound cx: group D strep (E faecalis) sensitive to penicllin & pseudomonas - bone cx shows clean margins -ID recs appreciated -Vanc day 13, Merrem day 3 -blood cx : Neg to date Afib - c/w eliquis - c/w metoprolol CAD - c/w Asa , lipitor DM -ISS , BGM HTN -c/w lasix, lisinopril, metoprolol CKD - at baseline , cont to monitor Constipation - colace DVT ppx: on eliquis possible DC tomorrow . recommending CHERY Visit type - Emergency Visit Emergency Visit: No - New Patient This patient is new to me today: No - Critical Care Critical Care patient: No - Discharge Referral Referred to [facility] Med P.C[facility] No ATTENDING PHYSICIAN STATEMENT I saw and evaluated the patient. I reviewed the resident's note and discussed the case with the resident. I agree with the resident's findings and plan as documented. SUBJECTIVE: OBJECTIVE: ASSESSMENT AND PLAN:
[2020-03-22] MEDS: ATORVASTATIN CA 80 MG TABLET (FP) PO SCH (21:36)
[2020-03-23] MEDS ORDERED: DEXTROSE 5%-WATER 100 ML IVPB ONE ×3 (01:04→19:36)
[2020-03-23] MEDS ORDERED: MEROPENEM 1 GM VIAL (RESTRICTED TO ID) IVPB ONE ×3 (01:04→19:36)
[2020-03-23] MEDS: MEROPENEM 1 GM in DEXTROSE 5%-WATER 100 ML IVPB SCH ×3 (01:10→19:45)
[2020-03-23] MEDS: FUROSEMIDE 40 MG TABLET (FP) PO SCH ×2 (06:32→14:10)
[2020-03-23] MEDS: INSULIN SLIDING SCALE (NOVOLOG) 1 VIAL SQ SCH ×4 (06:33→21:47)
[2020-03-23 09:13] LABS: HEMATOCRIT 33.2 % (35.4-49); HEMOGLOBIN 10.9 GM/dL (11.7-16.9); MCHC 32.7 g/dl (32.0-35.9); MEAN CELL VOLUME 76.3 fl (80-96); MEAN PLT VOLUME 8.2 fl (7.5-11.1); PLATELET COUNT 273 K/MM3 (134-434); RBC 4.35 M/mm3 (4.00-5.60); RDW 20.1 % (11.9-15.9); WHITE BLOOD COUNT 8.2 K/mm3 (4.0-10.0)
[2020-03-23 09:20] LABS: BLOOD UREA NITROGEN 29.9 mg/dL (7-18); CALCIUM 8.6 mg/dL (8.5-10.1); CREATININE 1.2 mg/dL (0.55-1.3); MAGNESIUM 2.1 mg/dL (1.8-2.4); PHOSPHOROUS 3.4 mg/dL (2.5-4.9)
--- NOTE | 2020-03-23 09:46 | PN ---
Progress Note (short form) - Note Progress Note: Podiatry F/U: Seen/evaluated at bedside NAD. Afebrile. Planning for d/c today or tomorrow. TAMMY: L foot: post-surgical dressing clean, dry, intact. There is no active bleeding, no strikethrough,no erythema, o edema, no POP noted, minimal dorsal duskiness to flap noted Imp: 64 year old diabetic PVD male s/p left foot transmetatarsal amputation Evaluated and reviewed afebrile IV abx per ID for rehab recc HBOT if possible as outpatient as well. will f/u next week in wound care center with Dr Ibrahim will need to call for f/u appt. dressing every other day wet to dry DSD
[2020-03-23] MEDS ORDERED: PT OWN MED DRAWER 7, Y5N ONE (10:12)
[2020-03-23] MEDS: ASPIRIN 81 MG CHEWABLE TABLETS PO SCH (10:23)
[2020-03-23] MEDS: APIXABAN 5 MG TABLET PO SCH ×2 (10:23→21:47)
[2020-03-23] MEDS: FERROUS SO4 325 MG TABLET (FP) PO SCH ×2 (10:23→21:47)
[2020-03-23] MEDS: DOCUSATE SODIUM 100 MG CAPSULE (FP) PO SCH ×2 (10:23→21:47)
[2020-03-23] MEDS: LISINOPRIL 5 MG TABLET (FP) PO SCH (10:24)
[2020-03-23] MEDS: METOPROLOL TARTRATE 25 MG TABLET (FP) PO SCH ×2 (10:24→21:46)
[2020-03-23] MEDS: NYSTATIN POWDER 100,000 UNITS/GM - 15 GM TOPICAL POWDER TP SCH (11:23)
--- NOTE | 2020-03-23 14:10 | PN ---
Progress Note (short form) - Note Progress Note: feels well no complaints Vital Signs Period Temp Pulse Resp BP Sys/Jiménez Pulse Ox Last 24 Hr 98.2 F-99.1 F 95-106 18-20 96-140/57-78 96-100 cor-rrr lungs clear abd soft,nt foot examined, sutures intact, no drainage, much less warmth CBC, BMP 03/23/20 08:00 03/23/20 08:00 Microbiology 03/19/20 21:00 Blood - Peripheral Venous Blood Culture - Preliminary NO GROWTH OBTAINED AFTER 72 HOURS, INCUBATION TO CONTINUE FOR 2 DAYS. 03/19/20 20:30 Blood - Peripheral Venous Blood Culture - Preliminary NO GROWTH OBTAINED AFTER 72 HOURS, INCUBATION TO CONTINUE FOR 2 DAYS. 03/17/20 16:15 Blood - Peripheral Venous Blood Culture - Final NO GROWTH AFTER 5 DAYS INCUBATION 03/17/20 16:15 Blood - Peripheral Venous Blood Culture - Final NO GROWTH AFTER 5 DAYS INCUBATION 03/16/20 Unknown Bone Gram Stain - Final 03/16/20 Unknown Bone Tissue Culture - Final Pseudomonas Aeruginosa Enterococcus Faecalis 03/16/20 Unknown Bone Anaerobic Culture - Final NO ANAEROBES WERE ISOLATED 03/16/20 Unknown Foot - Left Gram Stain - Final 03/16/20 Unknown Foot - Left Wound Culture - Final Pseudomonas Aeruginosa 03/10/20 13:50 Blood - Peripheral Venous Blood Culture - Final NO GROWTH AFTER 5 DAYS INCUBATION 03/10/20 13:00 Blood - Peripheral Venous Blood Culture - Final NO GROWTH AFTER 5 DAYS INCUBATION 03/10/20 13:00 Foot - Left Gram Stain - Final 03/10/20 13:00 Foot - Left Wound Culture - Final Pseudomonas Aeruginosa Enterococcus Faecalis a/p postop fever s/p TMA-resolved osteomyelitis s/p amputation of second toe left foot 01/22- s/p angioplasty 01/20 DM PVD CAD- history of cabg ckd pathology with clean margins-proximal bone no osteo would like to continue meropenem for another 2 weeks via picc line d/c vancomycin d/w resident Problem List - Problems (1) Osteomyelitis Code(s): M86.9 - OSTEOMYELITIS, UNSPECIFIED (2) PVD (peripheral vascular disease) Code(s): I73.9 - PERIPHERAL VASCULAR DISEASE, UNSPECIFIED (3) Diabetes Code(s): E11.9 - TYPE 2 DIABETES MELLITUS WITHOUT COMPLICATIONS (4) CAD (coronary artery disease) Code(s): I25.10 - ATHSCL HEART DISEASE OF [place] CORONARY ARTERY W/O ANG PCTRS (5) CKD (chronic kidney disease) Code(s): N18.9 - CHRONIC KIDNEY DISEASE, UNSPECIFIED
--- NOTE | 2020-03-23 17:37 | PN ---
Teaching Attending Note Name of Resident: Andrew Partida ATTENDING PHYSICIAN STATEMENT I saw and evaluated the patient. I reviewed the resident's note and discussed the case with the resident. I agree with the resident's findings and plan as documented. SUBJECTIVE: Patient feels better with no acute distress. No fever or chills. OBJECTIVE: Vital Signs Temperature 98.2 F 03/23/20 14:00 Pulse Rate 96 H 03/23/20 14:08 Respiratory Rate 20 03/23/20 14:08 Blood Pressure 120/64 03/23/20 14:08 O2 Sat by Pulse Oximetry (%) 97 03/23/20 14:00 PE: per resident's note CBCD WBC 8.2 K/mm3 (4.0-10.0) 03/23/20 08:00 RBC 4.35 M/mm3 (4.00-5.60) 03/23/20 08:00 Hgb 10.9 GM/dL (11.7-16.9) L 03/23/20 08:00 Hct 33.2 % (35.4-49) L 03/23/20 08:00 MCV 76.3 fl (80-96) L 03/23/20 08:00 MCHC 32.7 g/dl (32.0-35.9) 03/23/20 08:00 RDW 20.1 % (11.9-15.9) H 03/23/20 08:00 Plt Count 273 K/MM3 (134-434) 03/23/20 08:00 MPV 8.2 fl (7.5-11.1) 03/23/20 08:00 CMP Sodium 134 mmol/L (136-145) L 03/23/20 08:00 Potassium 4.0 mmol/L (3.5-5.1) 03/23/20 08:00 Chloride 100 mmol/L (98-107) 03/23/20 08:00 Carbon Dioxide 27 mmol/L (21-32) 03/23/20 08:00 Anion Gap 7 MMOL/L (8-16) L 03/23/20 08:00 BUN 29.9 mg/dL (7-18) H 03/23/20 08:00 Creatinine 1.2 mg/dL (0.55-1.3) 03/23/20 08:00 Random Glucose 116 mg/dL (74-106) H 03/23/20 08:00 Calcium 8.6 mg/dL (8.5-10.1) 03/23/20 08:00 Total Bilirubin 1.3 mg/dL (0.2-1) H 03/20/20 08:17 AST 16 U/L (15-37) 03/20/20 08:17 ALT 23 U/L (13-61) 03/20/20 08:17 Alkaline Phosphatase 77 U/L (45-117) 03/20/20 08:17 Total Protein 6.6 g/dl (6.4-8.2) 03/20/20 08:17 Albumin 2.7 g/dl (3.4-5.0) L 03/20/20 08:17 Current Medications Generic Name Dose Route Start Last Admin Trade Name Freq PRN Reason Stop Dose Admin Acetaminophen 650 mg 03/17/20 17:42 03/19/20 18:17 Tylenol - PO 650 mg Q6H PRN Administration Fever Or Pain Apixaban 5 mg 03/16/20 22:00 03/23/20 10:23 Eliquis - PO 5 mg BID [facility] Administration Aspirin 81 mg 03/17/20 10:00 03/23/20 10:23 Asa - PO 81 mg DAILY [facility] Administration Atorvastatin Calcium 80 mg 03/16/20 22:00 03/22/20 21:36 Lipitor - PO 80 mg HS [facility] Administration Docusate Sodium 100 mg 03/16/20 22:00 03/23/20 10:23 Colace - PO 100 mg BID [facility] Administration Fentanyl 25 mcg 03/16/20 14:30 Sublimaze Injection - IVPUSH [id number] PRN PAIN-PACU ORDER X 4 DOSES ONLY Ferrous Sulfate 325 mg 03/16/20 22:00 03/23/20 10:23 Feosol - PO 325 mg BID [facility] Administration Furosemide 40 mg 03/17/20 06:00 03/23/20 14:10 Lasix - PO 40 mg BIDLASIX [facility] Administration Meropenem 1 gm/ Dextrose 100 mls @ 200 mls/hr 03/19/20 18:00 03/23/20 11:22 IVPB 200 mls/hr Q8H-IV [facility] Administration Insulin Aspart 1 vial 03/16/20 16:30 03/23/20 17:05 Novolog Vial Sliding Scale - SQ 2 units ACHS [facility] Administration Protocol Lisinopril 2.5 mg 03/17/20 10:00 03/23/20 10:24 Prinivil PO 2.5 mg DAILY [facility] Administration Metoprolol Tartrate 12.5 mg 03/16/20 22:00 03/23/20 10:24 Lopressor - PO 12.5 mg BID [facility] Administration Nystatin 1 applic 03/17/20 10:00 03/23/20 11:23 Nystop Powder - TP Not Given DAILY [facility] Ondansetron HCl 4 mg 03/16/20 14:30 Zofran Injection IVPUSH Q6H PRN NAUSEA AND/OR VOMITING Home Medications Medication Instructions Recorded Empagliflozin [Jardiance] 10 mg PO DAILY 01/14/20 Furosemide [Lasix] 40 mg PO BID 01/14/20 Lisinopril [Zestril] 2.5 mg PO DAILY 01/14/20 Sitagliptin Phosphate [Januvia] 25 mg PO DAILY 01/14/20 Baclofen 10 mg PO BID 01/23/20 Apixaban [Eliquis -] 5 mg PO BID #60 tablet 01/24/20 Aspirin [ASA -] 81 mg PO DAILY tab.chew 01/24/20 Atorvastatin Ca [Lipitor] 80 mg PO HS #30 tablet 01/24/20 Docusate Sodium [Colace -] 100 mg PO BID #40 capsule 01/24/20 Ferrous Sulfate [Feosol] 325 mg PO BID #60 ud 01/24/20 Metoprolol Tartrate [Lopressor -] 12.5 mg PO BID #60 tablet 01/24/20 Microbiology 03/19/20 21:00 Blood - Peripheral Venous Blood Culture - Preliminary NO GROWTH OBTAINED AFTER 72 HOURS, INCUBATION TO CONTINUE FOR 2 DAYS. 03/19/20 20:30 Blood - Peripheral Venous Blood Culture - Preliminary NO GROWTH OBTAINED AFTER 72 HOURS, INCUBATION TO CONTINUE FOR 2 DAYS. 03/17/20 16:15 Blood - Peripheral Venous Blood Culture - Final NO GROWTH AFTER 5 DAYS INCUBATION 03/17/20 16:15 Blood - Peripheral Venous Blood Culture - Final NO GROWTH AFTER 5 DAYS INCUBATION 03/16/20 Unknown Bone Gram Stain - Final 03/16/20 Unknown Bone Tissue Culture - Final Pseudomonas Aeruginosa Enterococcus Faecalis 03/16/20 Unknown Bone Anaerobic Culture - Final NO ANAEROBES WERE ISOLATED 03/16/20 Unknown Foot - Left Gram Stain - Final 03/16/20 Unknown Foot - Left Wound Culture - Final Pseudomonas Aeruginosa 03/10/20 13:50 Blood - Peripheral Venous Blood Culture - Final NO GROWTH AFTER 5 DAYS INCUBATION 03/10/20 13:00 Blood - Peripheral Venous Blood Culture - Final NO GROWTH AFTER 5 DAYS INCUBATION 03/10/20 13:00 Foot - Left Gram Stain - Final 03/10/20 13:00 Foot - Left Wound Culture - Final Pseudomonas Aeruginosa Enterococcus Faecalis ASSESSMENT AND PLAN: This patient is a 64yom with Pmhx of CAD, s/p stents, OM s/p L 2nd toe amputation 01/23/20, HTN, DM, anemia, A fib, who presented with left foot OM. # s/p left foot transmetatarsal amputation POD#6 due to OM of the L 2nd and 3rd metatarsal Osteomyelitis by dr louis, s/p zosyn and anjalio now on meropenem since growing psuedomonues. Further care by firer boiler and daily evaluation by the wound care. ID on the case ,continue IV antibiotics as per ID #Hx of A fib: on home lopressor and continue home Eliquis # CAD: cont BB, ASA # DM: cont SSI. # CKD: Cr around base line. cont lisinopril # HTN: cont lopressor and lisinopril Plan for non-WB L foot with rolling walker, minimal heel weight bearing Dry sterile dressing with light compression applied to the left foot physical therapy evaluation discharge once stable to home with VNS as per patient's request. pathology with clean margins-proximal bone no osteo continue meropenem , s/p vancomycin. dc patient home with a picc line x 2 weeks of meropenem
--- NOTE | 2020-03-23 18:30 | PN ---
Physical Exam: SUBJECTIVE: No overnight events. Patient seen and examined. NAD. Denies pain. OBJECTIVE: Vital Signs Period Temp Pulse Resp BP Sys/Jiménez Pulse Ox Last 24 Hr 98.2 F-99.1 F 79-106 20-20 96-120/57-74 96-100 GENERAL: Awake, alert, and fully oriented, in no acute distress. HEENT: NT/NC; conjunctiva clear. No lid lag, MMM LUNGS: Breath sounds equal, clear to auscultation bilaterally. No wheezes, and no crackles. No accessory muscle use. HEART: irregularly irregular, normal S1 and S2 without murmur, rub or gallop. MIDLINE surgical incision scar ABDOMEN: Soft, nontender,normoactive bowel sounds, no guarding, no rebound, Umbilical hernia MUSCULOSKELETAL: Normal range of motion at all joints. No bony deformities or tenderness. No CVA tenderness. UPPER EXTREMITIES: 2+ pulses, warm, well-perfused. No cyanosis. No clubbing. No peripheral edema. LOWER EXTREMITIES: 2+ pulses, warm, well-perfused. Non-pitting edema b/l. Skin ulcers over shins b/l. scar on L leg from vessel harvesting for CABG. Did not evaluate TMA site because pt preferred to wait and have surgeons unwrap & examine his foot. NEUROLOGICAL: Normal speech. PSYCHIATRIC: Cooperative. Good eye contact. Appropriate mood and affect. SKIN: Warm, dry, normal turgor, no rashes or lesions noted, normal capillary refill Laboratory Results - last 24 hr 03/22/20 03/23/20 03/23/20 21:35 06:32 08:00 WBC 8.2 RBC 4.35 Hgb 10.9 L Hct 33.2 L MCV 76.3 L MCH 25.0 L MCHC 32.7 RDW 20.1 H Plt Count 273 MPV 8.2 Sodium Potassium Chloride Carbon Dioxide Anion Gap BUN Creatinine Est GFR (CKD-EPI)AfAm Est GFR (CKD-EPI)NonAf POC Glucometer 190 130 Random Glucose Calcium Phosphorus Magnesium 03/23/20 03/23/20 03/23/20 08:00 11:25 17:04 WBC RBC Hgb Hct MCV MCH MCHC RDW Plt Count MPV Sodium 134 L Potassium 4.0 Chloride 100 Carbon Dioxide 27 Anion Gap 7 L BUN 29.9 H Creatinine 1.2 Est GFR (CKD-EPI)AfAm 74.14 Est GFR (CKD-EPI)NonAf 63.97 POC Glucometer 176 158 Random Glucose 116 H Calcium 8.6 Phosphorus 3.4 Magnesium 2.1 Active Medications Generic Name Dose Route Start Last Admin Trade Name Freq PRN Reason Stop Dose Admin Acetaminophen 650 mg 03/17/20 17:42 03/19/20 18:17 Tylenol - PO 650 mg Q6H PRN Administration Fever Or Pain Apixaban 5 mg 03/16/20 22:00 03/23/20 10:23 Eliquis - PO 5 mg BID ELYSIA Administration Aspirin 81 mg 03/17/20 10:00 03/23/20 10:23 Asa - PO 81 mg DAILY ELYSIA Administration Atorvastatin Calcium 80 mg 03/16/20 22:00 03/22/20 21:36 Lipitor - PO 80 mg HS ELYSIA Administration Docusate Sodium 100 mg 03/16/20 22:00 03/23/20 10:23 Colace - PO 100 mg BID ELYSIA Administration Fentanyl 25 mcg 03/16/20 14:30 Sublimaze Injection - IVPUSH [id number] PRN PAIN-PACU ORDER X 4 DOSES ONLY Ferrous Sulfate 325 mg 03/16/20 22:00 03/23/20 10:23 Feosol - PO 325 mg BID ELYSIA Administration Furosemide 40 mg 03/17/20 06:00 03/23/20 14:10 Lasix - PO 40 mg BIDLASIX ELYSIA Administration Meropenem 1 gm/ Dextrose 100 mls @ 200 mls/hr 03/19/20 18:00 03/23/20 11:22 IVPB 200 mls/hr Q8H-IV ELYSIA Administration Insulin Aspart 1 vial 03/16/20 16:30 03/23/20 17:05 Novolog Vial Sliding Scale - SQ 2 units ACHS ELYSIA Administration Protocol Lisinopril 2.5 mg 03/17/20 10:00 03/23/20 10:24 Prinivil PO 2.5 mg DAILY ELYSIA Administration Metoprolol Tartrate 12.5 mg 03/16/20 22:00 03/23/20 10:24 Lopressor - PO 12.5 mg BID ELYSIA Administration Nystatin 1 applic 03/17/20 10:00 03/23/20 11:23 Nystop Powder - TP Not Given DAILY ELYSIA Ondansetron HCl 4 mg 03/16/20 14:30 Zofran Injection IVPUSH Q6H PRN NAUSEA AND/OR VOMITING CXR: no acute pathology. Foot x-ray: prominent plantar calcaneus spur. DUPLEX legs: no DVT Surgical Pathology Report: Forefront w/ marked acute inflammation & necrosis involving previous amputation site. Underlying bone w/ moderate acute osteomyelitis. Proximal bone: no osteomyelitis identified ASSESSMENT/PLAN: 64 YO M PMH s/p CABG (3 vessel) in 2016, 6 cardiac stents (last stent 1 year ago, currently on Eliquis and aspirin), DM, HTN, afib, iron deficiency anemia, & CAD p/w drainage of L foot ulcer at site of previous amputation from 01/23/2020. Admitted for wound management and to r/o osteomyelitis. Now being managed for osteomyelitis. #Left foot ulcer: Osteomyelitis: TMA POD#7 -MRI: osteomyelitis of 2nd metatarsal edema bone marrow distal aspect of 3rd met atarsal bone compatible w/ osteomyelitis. wound cx: group D strep (E faecalis) sensitive to penicllin & pseudomonas -s/p zosyn & vanc. -c/w meropenem 1 gm in D5W Q8H @200 mls/hr -pt will receive picc line tomorrow and d/c to rehab with meropenem #Afib, CAD (s/p CABG, stent) -c/w home med of apixiban (5 mg PO BID) & ASA (81 mg PO daily) -EKG: Irregularly irregular, rate of 81; Rightward axis -c/w eliquis #DM -ISS -BGM #HTN -will c/w home medication of lisinopril 2.5 mg PO daily & Lasix because at baseline Cr. Will monitor Cr -c/w metoprolol #CKD Cr baseline 1.7. Today's Cr 1.2. will monitor Cr. d/c lasix if Cr increases #DVT ppx - SCD; Eliquis #FEN no IV fluids monitor w/ BMP diabetic diet Visit type - Emergency Visit Emergency Visit: Yes ED Registration Date: 03/10/20 Care time: The patient presented to the Emergency Department on the above date and was hospitalized for further evaluation of their emergent condition. - New Patient This patient is new to me today: No - Critical Care Critical Care patient: No ATTENDING PHYSICIAN STATEMENT I saw and evaluated the patient. I reviewed the resident's note and discussed the case with the resident. I agree with the resident's findings and plan as documented. SUBJECTIVE: OBJECTIVE: ASSESSMENT AND PLAN:
[2020-03-23] MEDS: ATORVASTATIN CA 80 MG TABLET (FP) PO SCH (21:47)
[2020-03-24] MEDS ORDERED: MEROPENEM 1 GM VIAL (RESTRICTED TO ID) IVPB ONE ×3 (01:17→17:08)
[2020-03-24] MEDS ORDERED: DEXTROSE 5%-WATER 100 ML IVPB ONE ×3 (01:18→17:08)
[2020-03-24] MEDS: MEROPENEM 1 GM in DEXTROSE 5%-WATER 100 ML IVPB SCH ×3 (02:11→17:24)
[2020-03-24] MEDS: FUROSEMIDE 40 MG TABLET (FP) PO SCH ×2 (06:18→14:34)
[2020-03-24] MEDS: INSULIN SLIDING SCALE (NOVOLOG) 1 VIAL SQ SCH ×4 (07:16→22:22)
[2020-03-24] MEDS ORDERED: PT OWN MED DRAWER 7, Y5N ONE (09:46)
[2020-03-24] MEDS: DOCUSATE SODIUM 100 MG CAPSULE (FP) PO SCH ×2 (10:08→22:21)
[2020-03-24] MEDS: METOPROLOL TARTRATE 25 MG TABLET (FP) PO SCH ×2 (10:08→22:22)
[2020-03-24] MEDS: FERROUS SO4 325 MG TABLET (FP) PO SCH ×2 (10:09→22:21)
[2020-03-24] MEDS: LISINOPRIL 5 MG TABLET (FP) PO SCH (10:10)
[2020-03-24] MEDS: ASPIRIN 81 MG CHEWABLE TABLETS PO SCH (10:10)
[2020-03-24] MEDS: APIXABAN 5 MG TABLET PO SCH ×2 (10:11→22:21)
[2020-03-24] MEDS: NYSTATIN POWDER 100,000 UNITS/GM - 15 GM TOPICAL POWDER TP SCH (10:12)
--- NOTE | 2020-03-24 10:28 | PN ---
Progress Note (short form) - Note Progress Note: Podiatry F/U: Seen/evaluated at bedside, NAD. Pain is controlled. Denies F/V/N/C/SOB/CP. Afebrile. S/p left transmetatarsal amputation. Feeling much better, pain is well controlled. TAMMY: L foot: dressing clean, dry, intact. There is no active bleeding, no bandage strikethrough. Surgical sutures well coapted, no dehiscence noted. There is mild sanguinous oozing from the medial aspect of the TMA site. There is no purulent drainage, no fluctuance, no streaking ascending cellulitis, no signs of active infection. There is minimal duskiness to the dorsal central flap, however no acute ischemic nor gangrenous changes. Tenderness minimal on palpation of the foot. Imp: 64 year old diabetic PVD male s/p left transmetatarsal amputation 1. Dry sterile dressing applied. Please leave postoperative dressing clean, dry, intact. 2. Will use topical bactroban and dry sterile dressing changed every other day at [facility] facility. 3. NonWB L foot with walker, minimal heel WB for transfers. 4. Plan for IV meropenem x 2 weeks per ID. 5. Plan for discharge to [facility]; awaiting authorization through insurance. Case management working with patient. 6. Upon discharge, will need follow up in wound healing center 03/31/20. [phone]. Radha Ibrahim DPM
--- NOTE | 2020-03-24 19:27 | PN ---
Teaching Attending Note Name of Resident: Andrew Partida ATTENDING PHYSICIAN STATEMENT I saw and evaluated the patient. I reviewed the resident's note and discussed the case with the resident. I agree with the resident's findings and plan as documented. SUBJECTIVE: No pain, no fever or chills. No CP or SOB . OBJECTIVE: NAD, awake, alert, CV: irreg irreg , 2/6 SM at LLSB Ext: no edema on legs. L foot with a clean dressing that was changed by podiatry earlier withinstructions not to remove ASSESSMENT AND PLAN: 64 y/o man with h/o CAD, s/p stents, OM s/p L 2nd toe amputation 01/23/20, HTN, DM, anemia, A fib, who presented with discharge from L foot wound. he was found to have OM. 1- OM of the L 2nd and 3rd metatarsal heads. s/p TMA. - cont meropenem x 2 more weeks - NWB onL foot with walker . - dry sterile dressing with bactroban QOD - wound cx noted pseudomonas and Entero 2- H/o A fib: - cont lopressor and eliquis 3- CAD: cont BB, ASA 4- DM: cont SSI. 5- CKD: cont lisinopril 6- HTN: cont lopressor and lisinopril dc once placement is confirmed
--- NOTE | 2020-03-24 20:08 | PN ---
Physical Exam: SUBJECTIVE: No overnight events. Patient seen and examined. NAD. Denies pain. OBJECTIVE: Vital Signs Period Temp Pulse Resp BP Sys/Jiménez Pulse Ox Last 24 Hr 97.5 F-98.2 F 89-104 14-20 103-146/64-73 94-99 GENERAL: Awake, alert, and fully oriented, in no acute distress. HEENT: NT/NC; conjunctiva clear. No lid lag, MMM LUNGS: Breath sounds equal, clear to auscultation bilaterally. No wheezes, and no crackles. No accessory muscle use. HEART: irregularly irregular, normal S1 and S2 without murmur, rub or gallop. MIDLINE surgical incision scar ABDOMEN: Soft, nontender,normoactive bowel sounds, no guarding, no rebound, Umbilical hernia MUSCULOSKELETAL: Normal range of motion at all joints. No bony deformities or tenderness. No CVA tenderness. UPPER EXTREMITIES: 2+ pulses, warm, well-perfused. No cyanosis. No clubbing. No peripheral edema. LOWER EXTREMITIES: 2+ pulses, warm, well-perfused. Non-pitting edema b/l. Skin ulcers over shins b/l. scar on L leg from vessel harvesting for CABG. Did not evaluate TMA site because pt was instructed by podiatry to not unwrap his foot. NEUROLOGICAL: Normal speech. PSYCHIATRIC: Cooperative. Good eye contact. Appropriate mood and affect. SKIN: Warm, dry, normal turgor, no rashes or lesions noted, normal capillary refill Laboratory Results - last 24 hr 03/23/20 03/24/20 03/24/20 21:41 06:17 12:39 POC Glucometer 159 87 128 03/24/20 17:25 POC Glucometer 186 Active Medications Generic Name Dose Route Start Last Admin Trade Name Freq PRN Reason Stop Dose Admin Acetaminophen 650 mg 03/17/20 17:42 03/19/20 18:17 Tylenol - PO 650 mg Q6H PRN Administration Fever Or Pain Apixaban 5 mg 03/16/20 22:00 03/24/20 10:11 Eliquis - PO 5 mg BID ELYSIA Administration Aspirin 81 mg 03/17/20 10:00 03/24/20 10:10 Asa - PO 81 mg DAILY ELYSIA Administration Atorvastatin Calcium 80 mg 03/16/20 22:00 03/23/20 21:47 Lipitor - PO 80 mg HS ELYSIA Administration Docusate Sodium 100 mg 03/16/20 22:00 03/24/20 10:08 Colace - PO 100 mg BID ELYSIA Administration Fentanyl 25 mcg 03/16/20 14:30 Sublimaze Injection - IVPUSH [id number] PRN PAIN-PACU ORDER X 4 DOSES ONLY Ferrous Sulfate 325 mg 03/16/20 22:00 03/24/20 10:09 Feosol - PO 325 mg BID ELYSIA Administration Furosemide 40 mg 03/17/20 06:00 03/24/20 14:34 Lasix - PO 40 mg BIDLASIX ELYSIA Administration Meropenem 1 gm/ Dextrose 100 mls @ 200 mls/hr 03/19/20 18:00 03/24/20 17:24 IVPB 200 mls/hr Q8H-IV ELYSIA Administration Insulin Aspart 1 vial 03/16/20 16:30 03/24/20 17:26 Novolog Vial Sliding Scale - SQ 2 units ACHS ELYSIA Administration Protocol Lisinopril 2.5 mg 03/17/20 10:00 03/24/20 10:10 Prinivil PO 2.5 mg DAILY ELYSIA Administration Metoprolol Tartrate 12.5 mg 03/16/20 22:00 03/24/20 10:08 Lopressor - PO 12.5 mg BID ELYSIA Administration Nystatin 1 applic 03/17/20 10:00 03/24/20 10:12 Nystop Powder - TP Not Given DAILY ELYSIA Ondansetron HCl 4 mg 03/16/20 14:30 Zofran Injection IVPUSH Q6H PRN NAUSEA AND/OR VOMITING CXR: no acute pathology. Foot x-ray: prominent plantar calcaneus spur. DUPLEX legs: no DVT Surgical Pathology Report: Forefront w/ marked acute inflammation & necrosis involving previous amputation site. Underlying bone w/ moderate acute osteomyelitis. Proximal bone: no osteomyelitis identified ASSESSMENT/PLAN: 64 YO M PMH s/p CABG (3 vessel) in 2016, 6 cardiac stents (last stent 1 year ago, currently on Eliquis and aspirin), DM, HTN, afib, iron deficiency anemia, & CAD p/w drainage of L foot ulcer at site of previous amputation from 01/23/2020. Admitted for wound management and to manage osteomyelitis. #Left foot ulcer: Osteomyelitis -MRI: osteomyelitis of 2nd metatarsal edema bone marrow distal aspect of 3rd metatarsal bone compatible w/ osteomyelitis. wound cx: group D strep (E faecalis) sensitive to penicllin & pseudomonas -s/p zosyn & vanc. -c/w meropenem 1 gm in D5W Q8H @200 mls/hr -pt will receive picc line tomorrow and d/c to rehab with meropenem -still waiting for pt to receive authorization b/f discharge #Afib, CAD (s/p CABG, stent) -c/w home med of apixiban (5 mg PO BID) & ASA (81 mg PO daily) -EKG: Irregularly irregular, rate of 81; Rightward axis -c/w eliquis #DM -ISS -BGM #HTN -will c/w home medication of lisinopril 2.5 mg PO daily & Lasix because at baseline Cr. Will monitor Cr -c/w metoprolol #CKD will monitor Cr. d/c lasix if Cr increases #DVT ppx - SCD; Eliquis #FEN no IV fluids monitor w/ BMP diabetic diet Visit type - Emergency Visit Emergency Visit: Yes ED Registration Date: 03/10/20 Care time: The patient presented to the Emergency Department on the above date and was hospitalized for further evaluation of their emergent condition. - New Patient This patient is new to me today: No - Critical Care Critical Care patient: No ATTENDING PHYSICIAN STATEMENT I saw and evaluated the patient. I reviewed the resident's note and discussed the case with the resident. I agree with the resident's findings and plan as documented. SUBJECTIVE: OBJECTIVE: ASSESSMENT AND PLAN:
[2020-03-24] MEDS: ATORVASTATIN CA 80 MG TABLET (FP) PO SCH (22:22)
[2020-03-25] MEDS ORDERED: MEROPENEM 1 GM VIAL (RESTRICTED TO ID) IVPB ONE ×3 (02:04→17:08)
[2020-03-25] MEDS ORDERED: DEXTROSE 5%-WATER 100 ML IVPB ONE ×3 (02:04→17:08)
[2020-03-25] MEDS: MEROPENEM 1 GM in DEXTROSE 5%-WATER 100 ML IVPB SCH ×4 (02:40→17:27)
[2020-03-25] MEDS: FUROSEMIDE 40 MG TABLET (FP) PO SCH ×2 (06:03→13:58)
[2020-03-25] MEDS: INSULIN SLIDING SCALE (NOVOLOG) 1 VIAL SQ SCH ×3 (06:05→17:27)
[2020-03-25 08:54] LABS: BASO % 1.3 % (0-2.0); EOS % 5.8 % (0-4.5); HEMATOCRIT 34.3 % (35.4-49); HEMOGLOBIN 11.3 GM/dL (11.7-16.9); LYMPH % 15.4 % (8-40); MCH 25.2 pg (25.7-33.7); MCHC 32.8 g/dl (32.0-35.9); MEAN CELL VOLUME 76.9 fl (80-96); MONO % 13.6 % (3.8-10.2); NEUT % 63.9 % (42.8-82.8); PLATELET COUNT 291 K/MM3 (134-434); RBC 4.46 M/mm3 (4.00-5.60); RDW 20.2 % (11.9-15.9); WHITE BLOOD COUNT 8.6 K/mm3 (4.0-10.0)
[2020-03-25 09:22] LABS: ALBUMIN 2.8 g/dl (3.4-5.0); BILIRUBIN,TOTAL 0.9 mg/dL (0.2-1); BLOOD UREA NITROGEN 30.6 mg/dL (7-18); CALCIUM 8.5 mg/dL (8.5-10.1); CREATININE 1.4 mg/dL (0.55-1.3); MAGNESIUM 2.3 mg/dL (1.8-2.4); PHOSPHOROUS 3.1 mg/dL (2.5-4.9); POTASSIUM 4.2 mmol/L (3.5-5.1); TOT PROT 6.8 g/dl (6.4-8.2)
[2020-03-25] MEDS: ASPIRIN 81 MG CHEWABLE TABLETS PO SCH (10:47)
[2020-03-25] MEDS: DOCUSATE SODIUM 100 MG CAPSULE (FP) PO SCH (10:47)
[2020-03-25] MEDS: FERROUS SO4 325 MG TABLET (FP) PO SCH (10:47)
[2020-03-25] MEDS: APIXABAN 5 MG TABLET PO SCH (10:47)
[2020-03-25] MEDS: METOPROLOL TARTRATE 25 MG TABLET (FP) PO SCH (10:47)
[2020-03-25] MEDS: NYSTATIN POWDER 100,000 UNITS/GM - 15 GM TOPICAL POWDER TP SCH (10:49)
[2020-03-25] MEDS: LISINOPRIL 5 MG TABLET (FP) PO SCH (10:49)
[2020-03-25 15:47] VITALS: BP 114/68; PULSE 103; TEMP 98.2
--- NOTE | 2020-03-25 17:57 | PN ---
Teaching Attending Note Name of Resident: Andrew Partida ATTENDING PHYSICIAN STATEMENT I saw and evaluated the patient. I reviewed the resident's note and discussed the case with the resident. I agree with the resident's findings and plan as documented. SUBJECTIVE: No fever or chills. No N/V. no pain . No events over night OBJECTIVE: NAD, awake, alert, CV: irreg irreg , 2/6 SM at LLSB Lungs: CTAB Ext: no edema on legs. L foot with a clean dressing that is not duet fro a change till tomorrow , was not removed ASSESSMENT AND PLAN: 64 y/o man with h/o CAD, s/p stents, OM s/p L 2nd toe amputation 01/23/20, HTN, DM, anemia, A fib, who presented with discharge from L foot wound. he was found to have OM. 1- OM of the L 2nd and 3rd metatarsal heads. s/p TMA. - cont meropenem x 2 more weeks - NWB on L foot with walker . - dry sterile dressing with bactroban QOD 2- H/o A fib: - cont lopressor and eliquis 3- CAD: cont BB, ASA 4- DM: cont SSI. 5- CKD: cont lisinopril 6- HTN: cont lopressor and lisinopril dc to rehab today for IV ABx
--- NOTE | 2020-03-25 21:40 | DS ---
Physical Exam: SUBJECTIVE: No overnight events. Patient seen and examined. NAD. Denies pain. OBJECTIVE: Vital Signs Period Temp Pulse Resp BP Sys/Jiménez Pulse Ox Last 24 Hr 97.6 F-98.3 F 81-108 18-20 105-116/63-78 94-100 PHYSICAL EXAM GENERAL: Awake, alert, and fully oriented, in no acute distress. HEENT: NT/NC; conjunctiva clear. No lid lag, MMM LUNGS: Breath sounds equal, clear to auscultation bilaterally. No wheezes, and no crackles. No accessory muscle use. HEART: irregularly irregular, normal S1 and S2 without murmur, rub or gallop. MIDLINE surgical incision scar ABDOMEN: Soft, nontender,normoactive bowel sounds, no guarding, no rebound, Umbilical hernia MUSCULOSKELETAL: Normal range of motion at all joints. No bony deformities or tenderness. No CVA tenderness. UPPER EXTREMITIES: 2+ pulses, warm, well-perfused. No cyanosis. No clubbing. No peripheral edema. LOWER EXTREMITIES: 2+ pulses, warm, well-perfused. Non-pitting edema b/l. Skin ulcers over shins b/l. scar on L leg from vessel harvesting for CABG. Did not evaluate TMA site because pt was instructed by podiatry to not unwrap his foot. NEUROLOGICAL: Normal speech. PSYCHIATRIC: Cooperative. Good eye contact. Appropriate mood and affect. LABS Laboratory Results - last 24 hr 03/24/20 03/25/20 03/25/20 22:19 06:04 07:50 WBC 8.6 RBC 4.46 Hgb 11.3 L Hct 34.3 L MCV 76.9 L MCH 25.2 L MCHC 32.8 RDW 20.2 H Plt Count 291 MPV 8.0 Absolute Neuts (auto) 5.5 Neutrophils % 63.9 Lymphocytes % 15.4 D Monocytes % 13.6 H Eosinophils % 5.8 H Basophils % 1.3 Nucleated RBC % 0 Sodium Potassium Chloride Carbon Dioxide Anion Gap BUN Creatinine Est GFR (CKD-EPI)AfAm Est GFR (CKD-EPI)NonAf POC Glucometer 206 164 Random Glucose Calcium Phosphorus Magnesium Total Bilirubin AST ALT Alkaline Phosphatase Total Protein Albumin 03/25/20 03/25/20 03/25/20 07:50 11:53 17:20 WBC RBC Hgb Hct MCV MCH MCHC RDW Plt Count MPV Absolute Neuts (auto) Neutrophils % Lymphocytes % Monocytes % Eosinophils % Basophils % Nucleated RBC % Sodium 138 Potassium 4.2 Chloride 102 Carbon Dioxide 29 Anion Gap 6 L BUN 30.6 H Creatinine 1.4 H Est GFR (CKD-EPI)AfAm 61.53 Est GFR (CKD-EPI)NonAf 53.09 POC Glucometer 157 195 Random Glucose 131 H Calcium 8.5 Phosphorus 3.1 Magnesium 2.3 Total Bilirubin 0.9 AST 19 ALT 28 Alkaline Phosphatase 129 H Total Protein 6.8 Albumin 2.8 L HOSPITAL COURSE: 64 YO M PMH s/p CABG (3 vessel) in 2016, 6 cardiac stents (last stent 1 year ago, currently on Eliquis and aspirin), DM, HTN, afib, iron deficiency anemia, & CAD p/w drainage of L foot ulcer at site of previous amputation from 01/23/2020. Admitted for wound management and to manage osteomyelitis. MRI showed osteomyelitis of 2nd metatarsal edema bone marrow distal aspect of 3rd metatarsal bone compatible w/ osteomyelitis. He was treated with vanc & zosyn. Wound culture grew group D strep (E faecalis). Pt was given meropenem. Pts status improved and he was discharged with a picc line for meropenem. Pt is stable for discharge. Date of Admission:03/10/20 CXR: no acute pathology. Foot x-ray: prominent plantar calcaneus spur. DUPLEX legs: no DVT MRI: osteomyelitis of 2nd metatarsal edema bone marrow distal aspect of 3rd metatarsal bone compatible w/ osteomyelitis. Surgical Pathology Report: Forefront w/ marked acute inflammation & necrosis involving previous amputation site. Underlying bone w/ moderate acute osteomyelitis. Proximal bone: no osteomyelitis identified wound cx: group D strep (E faecalis) Date of Discharge: 03/25/20 Minutes to complete discharge: 50 Discharge Summary Problems reviewed: Yes Reason For Visit: WOUND OF FOOT Condition: Stable - Instructions Diet, Activity, Other Instructions: You came to the hospital for drainage from you left foot ulcer. MRI of your foot showed osteomyelitis, so you were given antibiotics and underwent an amputation surgery. You are stable for discharge to rehab Please use topical bactroban and dry sterile dressing every other day to the site. Please follow-up with Dr. Ibrahim for wound care on 03/31/20. [phone]. Please consider Hyperbaric Oxygen therapy to improve healing. Non weight baring on L foot with walker, minimal heel weight baring for transfers. MEDICATION Please continue with you home medications as prescribed. Please start taking meropenem through the PICC line. FOLLOW-UP Please follow-up with your primary care physician, Dr. Looney, for general health maintenance. Please follow-up with Dr Ibrahim [facility] week for follow-up of your foot amputation. Please continue with low sugar, low fat diet. If you have new, worsening, or concerning symptoms please return to the ED or call 911. if you see any white or green or yellow discharge form wound , notify your doctor immediately you need ESR done in 10 days and results to be faxed to dr. ibrahim. please have your primary care doctor order that test Referrals: Bob Ibrahim MD [Staff Physician] - Bruno Looney MD [Primary Care Provider] - Disposition: [facility] FACILITY - Home Medications Comprehensive Discharge Medication List: Ambulatory Orders Empagliflozin [Jardiance] 10 mg PO DAILY 01/14/20 Furosemide [Lasix] 40 mg PO BID 01/14/20 Lisinopril [Zestril] 2.5 mg PO DAILY 01/14/20 Sitagliptin Phosphate [Januvia] 25 mg PO DAILY 01/14/20 Apixaban [Eliquis -] 5 mg PO BID #60 tablet 01/24/20 Aspirin [ASA -] 81 mg PO DAILY tab.chew 01/24/20 Atorvastatin Ca [Lipitor] 80 mg PO HS #30 tablet 01/24/20 Docusate Sodium [Colace -] 100 mg PO BID #40 capsule 01/24/20 Ferrous Sulfate [Feosol] 325 mg PO BID #60 ud 01/24/20 Metoprolol Tartrate [Lopressor -] 12.5 mg PO BID #60 tablet 01/24/20 Meropenem [Merrem (Restricted To Id) -] 1 gm IVPB Q8H-IV vial 03/24/20 This patient is new to me today: No Emergency Visit: Yes ED Registration Date: 03/10/20 Care time: The patient presented to the Emergency Department on the above date and was hospitalized for further evaluation of their emergent condition. Critical Care patient: No - Discharge Referral Referred to [facility] No ATTENDING PHYSICIAN STATEMENT I saw and evaluated the patient. I reviewed the resident's note and discussed the case with the resident. I agree with the resident's findings and plan as documented. SUBJECTIVE: OBJECTIVE: ASSESSMENT AND PLAN:
== END 2020-03-25 17:55 | DRG 305 ==
LOC: JER 12:17 → JERBED 15:46 → J5S 20:06
PROVIDERS: ADMIT Internal Medicine; ATTEND Internal Medicine
PROC: 0Y6N0ZB Detachment at Left Foot, Partial 2nd Ray, Open Approach (ICD-10-PCS; 2020-03-16)
PROC: 0Y6N0ZC Detachment at Left Foot, Partial 3rd Ray, Open Approach (ICD-10-PCS; 2020-03-16)
PROC: 0Y6N0ZD Detachment at Left Foot, Partial 4th Ray, Open Approach (ICD-10-PCS; 2020-03-16)
PROC: 0Y6N0ZF Detachment at Left Foot, Partial 5th Ray, Open Approach (ICD-10-PCS; 2020-03-16)
PROC: 0Y6N0Z9 Detachment at Left Foot, Partial 1st Ray, Open Approach (ICD-10-PCS; principal; 2020-03-16 12:00)
PROC: 02HV33Z Insertion of Infusion Device into Superior Vena Cava, Percutaneous Approach (ICD-10-PCS; 2020-03-25)
PROC: B518ZZA Fluoroscopy of Superior Vena Cava, Guidance (ICD-10-PCS; 2020-03-25)
DX: T87.44 Infection of amputation stump, left lower extremity (principal); T87.81 Dehiscence of amputation stump; E11.621 Type 2 diabetes mellitus with foot ulcer; E11.52 Type 2 diabetes mellitus with diabetic peripheral angiopathy with gangrene; E11.69 Type 2 diabetes mellitus with other specified complication; M86.9 Osteomyelitis, unspecified; I25.10 Atherosclerotic heart disease of native coronary artery without angina pectoris; I48.91 Unspecified atrial fibrillation; E11.22 Type 2 diabetes mellitus with diabetic chronic kidney disease; I12.9 Hypertensive chronic kidney disease with stage 1 through stage 4 chronic kidney disease, or unspecified chronic kidney disease; N18.9 Chronic kidney disease, unspecified; D50.9 Iron deficiency anemia, unspecified; B95.2 Enterococcus as the cause of diseases classified elsewhere; B96.5 Pseudomonas (aeruginosa) (mallei) (pseudomallei) as the cause of diseases classified elsewhere; R19.7 Diarrhea, unspecified; K59.09 Other constipation; R50.82 Postprocedural fever; Z95.1 Presence of aortocoronary bypass graft; Z95.5 Presence of coronary angioplasty implant and graft
CPT/HCPCS: 36415; 36569; 71045-TC-FY; 73630-TC-LT; 73718-TC-LT; 77001-TC-FY; 80048; 80053; 80061; 81003; 82248; 82962; 83721; 83735; 84100; 85025; 85027; 85610; 85651; 85730; 86140; 86850; 86900; 86901; 87040; 87070; 87075; 87186; 87205; 88305-TC; 88307-TC; 88311-TC; 93005; 93010; 93970-TC; 94010; 94760; 97116-GP; 97162-GP; 99285-25; C1751; G0277; G0463-25; G0480; U0003

== ENCOUNTER 2020-10-15 04:42 | Day surgery (SDC) | payer OTHER ==
[2020-10-13 12:35] VITALS: BMI 30.4
[2020-10-15 11:13] LABS: INR 1.54 (0.83-1.09); PROTHROMBIN TIME (PATIENT) 18.4 SEC (9.7-13.0)
[2020-10-15] MEDS ORDERED: HEPARIN NA (PORCINE) 5,000 UNITS/ML 1ML VIAL ONE (12:14)
[2020-10-15] MEDS ORDERED: LIDOCAINE HCL 1%, 10 MG/ML (20ML VIAL) ONE (12:14)
[2020-10-15] MEDS ORDERED: LIDOCAINE 1% P/F 10 MG/ML VIAL INF ONE (12:47)
[2020-10-15] MEDS ORDERED: HEPARIN NA (PORCINE) 5,000 UNITS/ML 1ML VIAL SQ ONE (12:49)
[2020-10-15] MEDS ORDERED: ceFAZolin 2 GRAM PREMIX BAG IVPB ONE (13:48)
[2020-10-15] MEDS ORDERED: oxyCODONE HCL 5 MG TABLET PO PRN (15:12)
[2020-10-15] MEDS ORDERED: ONDANSETRON 4 MG/2 ML VIAL IVPUSH PRN (15:12)
[2020-10-15 17:55] VITALS: BP 114/85; PULSE 91; TEMP 97.6
== END 2020-10-15 17:55 | disposition home or self-care (01) ==
LOC: JASU-SURG 04:42
PROVIDERS: ATTEND Surgery Vascular Surgery
PROC: 047Q3ZZ Dilation of Left Anterior Tibial Artery, Percutaneous Approach (ICD-10-PCS; 2020-10-15)
PROC: 047L3DZ Dilation of Left Femoral Artery with Intraluminal Device, Percutaneous Approach (ICD-10-PCS; principal; 2020-10-15 12:30)
DX: I70.212 Atherosclerosis of native arteries of extremities with intermittent claudication, left leg (principal)
CPT/HCPCS: 37227; 37229; C1877; 36415; 76000-TC-FY; 82947; 82962; 85610; 85730; 94760; J1644

== ENCOUNTER 2020-11-03 11:51 | Emergency (ER) | payer OTHER ==
[2020-11-03 12:04] VITALS: BP 109/65; PULSE 97; BMI 31.6
[2020-11-03 13:14] LABS: BASO % 1.5 % (0-2.0); HEMATOCRIT 41.6 % (35.4-49); HEMOGLOBIN 13.7 GM/dL (11.7-16.9); LYMPH % 11.8 % (8-40); MCH 26.3 pg (25.7-33.7); MCHC 32.9 g/dl (32.0-35.9); MEAN CELL VOLUME 79.9 fl (80-96); MEAN PLT VOLUME 7.8 fl (7.5-11.1); MONO % 12.7 % (3.8-10.2); PLATELET COUNT 227 K/MM3 (134-434); WHITE BLOOD COUNT 8.3 K/mm3 (4.0-10.0)
[2020-11-03 13:15] LABS: PH,URINE 5.5 (5.0-8.0); URINE APPEARANCE CLEAR; URINE BILIRUBIN NEGATIVE (NEGATIVE); URINE COLOR YELLOW; URINE GLUCOSE (UA) 3+ (NEGATIVE); URINE KETONE NEGATIVE (NEGATIVE); URINE LEUK ESTERASE NEGATIVE (NEGATIVE); URINE NITRITE NEGATIVE (NEGATIVE); URINE PROTEIN NEGATIVE (NEGATIVE); URINE UROBILINOGEN 0.2 mg/dL (0.2-1.0)
[2020-11-03 13:45] LABS: POTASSIUM 4.9 mmol/L (3.5-5.1)
[2020-11-03 13:47] LABS: CALCIUM 8.5 mg/dL (8.5-10.1)
[2020-11-03 13:48] LABS: ALBUMIN 3.4 g/dl (3.4-5.0); MAGNESIUM 2.5 mg/dL (1.8-2.4)
[2020-11-03 13:51] LABS: CREATININE 1.8 mg/dL (0.55-1.3)
[2020-11-03 13:52] LABS: BILIRUBIN,TOTAL 0.8 mg/dL (0.2-1); TOT PROT 7.8 g/dl (6.4-8.2)
== END 2020-11-03 17:05 | disposition home or self-care (01) ==
LOC: JER 11:51
DX: R18.8 Other ascites (principal)
CPT/HCPCS: 36415; 74176-TC; 80053; 81003; 83690; 83735; 85025; 87086; 99284-25

== ENCOUNTER 2022-03-30 04:16 | Day surgery (SDC) | payer OTHER ==
[2022-03-28 12:26] VITALS: BMI 27.4
[2022-03-30] MEDS ORDERED: LIDOCAINE HCL 1%, 10 MG/ML (20ML VIAL) ONE (12:23)
[2022-03-30] MEDS ORDERED: HEPARIN NA (PORCINE) 5,000 UNITS/ML 1ML VIAL ONE (12:23)
[2022-03-30] MEDS ORDERED: LIDOCAINE HCL 1%, 10 MG/ML (20ML VIAL) INF ONE ×2 (15:15)
[2022-03-30] MEDS ORDERED: IOHEXOL 300 MG/ML INFUS..BTL IV ONE ×2 (15:15)
[2022-03-30] MEDS ORDERED: HEPARIN NA (PORCINE) 5,000 UNITS/ML 1ML VIAL SQ ONE (15:15)
[2022-03-30] MEDS ORDERED: MIDAZOLAM HCL 2 MG/2 ML SINGLE DOSE VIAL ONE (15:22)
[2022-03-30] MEDS ORDERED: ceFAZolin 2 GRAM PREMIX BAG IVPB ONE (15:26)
[2022-03-30] MEDS ORDERED: ceFAZolin SODIUM 1 GM VIAL ONE (15:27)
[2022-03-30 18:12] VITALS: PULSE 85; RESP 18; TEMP 98.1
[2022-03-30 18:13] VITALS: BP 115/74
== END 2022-03-30 18:05 | disposition home or self-care (01) ==
LOC: JASU-SURG 04:16
PROVIDERS: ATTEND Surgery Vascular Surgery
PROC: B41DYZZ Fluoroscopy of Aorta and Bilateral Lower Extremity Arteries using Other Contrast (ICD-10-PCS; principal; 2022-03-30 14:30)
DX: E11.621 Type 2 diabetes mellitus with foot ulcer (principal); I70.201 Unspecified atherosclerosis of native arteries of extremities, right leg; L97.519 Non-pressure chronic ulcer of other part of right foot with unspecified severity; Z79.84 Long term (current) use of oral hypoglycemic drugs
CPT/HCPCS: 76000-TC-FY; 82962; 94760; J1644

== ENCOUNTER → 2022-04-18 | Day surgery (SDC) | payer OTHER ==
[2022-04-18 10:03] LABS: INR 1.35 (0.83-1.09); PROTHROMBIN TIME (PATIENT) 15.6 SEC (9.7-13.0)
== END | disposition home or self-care (01) ==
LOC: JRADIR 08:37
PROVIDERS: ATTEND Internal Medicine
PROC: 02HV33Z Insertion of Infusion Device into Superior Vena Cava, Percutaneous Approach (ICD-10-PCS; principal; 2022-04-18)
PROC: B518ZZA Fluoroscopy of Superior Vena Cava, Guidance (ICD-10-PCS; 2022-04-18)
DX: M86.9 Osteomyelitis, unspecified (principal)
CPT/HCPCS: 36558; C1751; 36415; 77001-TC-FY; 85610

== ENCOUNTER → 2022-06-06 | Day surgery (SDC) | payer OTHER | END | disposition home or self-care (01) | LOC: JRADIR 10:10 | PROVIDERS: ATTEND Internal Medicine | PROC: 05PY03Z Removal of Infusion Device from Upper Vein, Open Approach (ICD-10-PCS; principal; 2022-06-06) | DX: Z45.2 Encounter for adjustment and management of vascular access device (principal) | CPT/HCPCS: 36589 ==

== ENCOUNTER 2022-06-28 08:54 | Inpatient (IN) | payer OTHER ==
[2022-06-28 09:58] LABS: BASO % 1.2 % (0-2.0); HEMATOCRIT 49.2 % (35.4-49); HEMOGLOBIN 15.8 GM/dL (11.7-16.9); LYMPH % 12.8 % (8-40); MCH 28.4 pg (25.7-33.7); MCHC 32.2 g/dl (32.0-35.9); MEAN CELL VOLUME 88.2 fl (80-96); MONO % 14.5 % (3.8-10.2); NEUT % 68.5 % (42.8-82.8); PLATELET COUNT 191 10^3/uL (134-434); RBC 5.58 M/mm3 (4.00-5.60); RDW 17.9 % (11.9-15.9); WHITE BLOOD COUNT 8.4 K/mm3 (4.0-10.0)
[2022-06-28 10:04] LABS: INR 2.41 (0.83-1.09)
[2022-06-28 10:20] LABS: CHLORIDE 98 mmol/L (98-107); SODIUM 136 mmol/L (136-145)
[2022-06-28 10:22] LABS: ANION GAP 9 MMOL/L (8-16); CALCIUM 9.1 mg/dL (8.5-10.1); CO2 30 mmol/L (21-32); GLUCOSE,RANDOM 161 mg/dL (74-106)
[2022-06-28 10:23] LABS: MAGNESIUM 2.8 mg/dL (1.8-2.4)
[2022-06-28 10:26] LABS: SGOT/AST 39 U/L (15-37); SGPT/ALT 31 U/L (13-61)
[2022-06-28 10:27] LABS: BILIRUBIN,TOTAL 1.6 mg/dL (0.2-1); TOT PROT 7.5 g/dl (6.4-8.2)
[2022-06-28 10:28] LABS: ALK PHOS 97 U/L (45-117)
[2022-06-28] MEDS ORDERED: ASPIRIN 81 MG CHEWABLE TABLETS PO ONE (10:34)
[2022-06-28] MEDS ORDERED: ASPIRIN 81 MG CHEWABLE TABLETS ONE (10:50)
[2022-06-28] MEDS ORDERED: HEPARIN NA (PORCINE) 5,000 UNITS/ML 1ML VIAL SQ SCH (14:00)
[2022-06-28] MEDS ORDERED: ATORVASTATIN CA 80 MG TABLET (FP) PO ONE (14:15)
[2022-06-28] MEDS ORDERED: ATORVASTATIN CA 80 MG TABLET (FP) ONE (14:16)
[2022-06-28] MEDS ORDERED: metoPROLOL SUCCINATE 25 MG TAB.SR.24H (FP) PO ONE (14:16)
[2022-06-28] MEDS ORDERED: metoPROLOL SUCCINATE 25 MG TAB.SR.24H (FP) PO SCH (15:16)
[2022-06-28] MEDS: INSULIN SLIDING SCALE (NOVOLOG) 1 VIAL SQ SCH (18:04)
[2022-06-28] MEDS ORDERED: APIXABAN 5 MG TABLET PO SCH (22:00)
[2022-06-29 00:43] VITALS: BMI 30.4
[2022-06-29] MEDS: INSULIN SLIDING SCALE (NOVOLOG) 1 VIAL SQ SCH ×2 (06:05→11:56)
[2022-06-29 08:32] LABS: EOS % 3.3 % (0-4.5); HEMATOCRIT 46.5 % (35.4-49); HEMOGLOBIN 15.5 GM/dL (11.7-16.9); LYMPH % 16.9 % (8-40); MCH 29.3 pg (25.7-33.7); MCHC 33.2 g/dl (32.0-35.9); MEAN CELL VOLUME 88.1 fl (80-96); MEAN PLT VOLUME 8.8 fl (7.5-11.1); MONO % 15.5 % (3.8-10.2); NEUT % 63.3 % (42.8-82.8); PLATELET COUNT 162 10^3/uL (134-434); RBC 5.28 M/mm3 (4.00-5.60); RDW 18.1 % (11.9-15.9); WHITE BLOOD COUNT 8.3 K/mm3 (4.0-10.0)
[2022-06-29 08:44] VITALS: RESP 18
[2022-06-29 08:49] LABS: BILIRUBIN,TOTAL 1.4 mg/dL (0.2-1)
[2022-06-29 08:51] LABS: BLOOD UREA NITROGEN 34.1 mg/dL (7-18); CREATININE 1.6 mg/dL (0.55-1.3); PHOSPHOROUS 3.7 mg/dL (2.5-4.9)
[2022-06-29 08:52] LABS: ALBUMIN 3.7 g/dl (3.4-5.0); CALCIUM 9.2 mg/dL (8.5-10.1)
[2022-06-29] MEDS ORDERED: ASPIRIN 81 MG CHEWABLE TABLETS PO SCH (10:00)
[2022-06-29] MEDS ORDERED: GABAPENTIN 300 MG CAPSULE PO SCH (10:00)
[2022-06-29 11:39] LABS: INR 1.76 (0.83-1.09); PROTHROMBIN TIME (PATIENT) 20.3 SEC (9.7-13.0)
[2022-06-29 11:42] LABS: ACTIVATED PTT 41.7 SECONDS (25.2-36.5)
[2022-06-29 13:12] VITALS: BP 124/70; PULSE 72; TEMP 98
[2022-06-29] MEDS ORDERED: FLU VACC QS2022-23(6MOS UP)/PF 60 MCG/0.5 ML SYRINGE IM ONE (14:00)
[2022-06-30] MEDS ORDERED: DIGOXIN 0.125 MG TABLET PO SCH (10:00)
== END 2022-06-29 13:29 | disposition short-term general hospital (02) | DRG 311 ==
LOC: JER 08:54 → JERBED 09:28 → J4W 23:31
PROVIDERS: ADMIT Internal Medicine; ATTEND Internal Medicine
DX: I20.0 Unstable angina (principal); I13.0 Hypertensive heart and chronic kidney disease with heart failure and stage 1 through stage 4 chronic kidney disease, or unspecified chronic kidney disease; I48.19 Other persistent atrial fibrillation; I50.42 Chronic combined systolic (congestive) and diastolic (congestive) heart failure; M86.68 Other chronic osteomyelitis, other site; R18.8 Other ascites; R55 Syncope and collapse; E78.5 Hyperlipidemia, unspecified; E11.51 Type 2 diabetes mellitus with diabetic peripheral angiopathy without gangrene; N18.9 Chronic kidney disease, unspecified; E11.22 Type 2 diabetes mellitus with diabetic chronic kidney disease; Z95.5 Presence of coronary angioplasty implant and graft; Z89.422 Acquired absence of other left toe(s)
CPT/HCPCS: 0241U-QW; 36415; 70450-TC; 71045-TC-FY; 72125-TC; 76700-TC; 80053; 80061; 80162; 82550; 82553; 82962; 83036; 83735; 84100; 84443; 84484; 85025; 85610; 85730; 93005; 93010; 93306-TC; 93880-TC; 99285-25

== ENCOUNTER 2022-07-19 11:03 | Inpatient (IN) | payer OTHER ==
[2022-07-19] MEDS ORDERED: VANCOMYCIN 1 GM in D5W (PRE-DOCKED) 1,000 MG/250 ML IVPB ONE (12:36)
[2022-07-19] MEDS ORDERED: PIPERACILLIN/TAZOB 4.5 GM 4.5 GM in DEXTROSE 5%-WATER 100 ML IVPB ONE (12:36)
[2022-07-19] MEDS ORDERED: VANCOMYCIN/WATER FOR INJ (PEG) 1,000 MG/200 ML BAG IVPB ONE (13:34)
[2022-07-19] MEDS ORDERED: PIPERACILLIN/TAZOB 4.5 GM 4.5 GM/100 ML BAG IVPB ONE (13:34)
[2022-07-19 15:30] LABS: EOS % 3.6 % (0-4.5); HEMATOCRIT 44.4 % (35.4-49); HEMOGLOBIN 14.8 GM/dL (11.7-16.9); LYMPH % 14.1 % (8-40); MCH 28.5 pg (25.7-33.7); MCHC 33.4 g/dl (32.0-35.9); MEAN CELL VOLUME 85.4 fl (80-96); MEAN PLT VOLUME 8.2 fl (7.5-11.1); MONO % 12.6 % (3.8-10.2); NEUT % 68.7 % (42.8-82.8); PLATELET COUNT 177 10^3/uL (134-434); RBC 5.19 M/mm3 (4.00-5.60); WHITE BLOOD COUNT 8.9 K/mm3 (4.0-10.0)
[2022-07-19 15:36] LABS: INR 1.75 (0.83-1.09); PROTHROMBIN TIME (PATIENT) 20.2 SEC (9.7-13.0)
[2022-07-19 15:39] LABS: ACTIVATED PTT 41.8 SECONDS (25.2-36.5)
[2022-07-19 15:52] LABS: ALBUMIN 3.9 g/dl (3.4-5.0); BILIRUBIN,TOTAL 1.1 mg/dL (0.2-1); BLOOD UREA NITROGEN 39.4 mg/dL (7-18); CALCIUM 9.1 mg/dL (8.5-10.1); CREATININE 1.6 mg/dL (0.55-1.3); TOT PROT 7.5 g/dl (6.4-8.2)
[2022-07-19] MEDS ORDERED: SODIUM CHLORIDE 0.9% 1000 ML INFUS.BAG IV ONE (16:10)
[2022-07-20] MEDS ORDERED: VANCOMYCIN HCL 1,500 MG in DEXTROSE 5%-WATER - 500 ML IVPB SCH (00:30)
[2022-07-20] MEDS ORDERED: PIPERACILLIN/TAZOB 3.375 GM 3.375 GM/50 ML BAG IVPB ONE (01:35)
[2022-07-20] MEDS: PIPERACILLIN/TAZOB 3.375 GM 3.375 GM in DEXTROSE 5%-WATER - 50 ML IVPB SCH ×3 (01:57→13:44)
[2022-07-20] MEDS: INSULIN SLIDING SCALE (NOVOLOG) 1 VIAL SQ SCH ×4 (06:22→22:38)
[2022-07-20] MEDS: GABAPENTIN 300 MG CAPSULE PO SCH ×2 (09:33→22:15)
[2022-07-20] MEDS: BACLOFEN 10 MG TABLET (FP) PO SCH (09:33)
[2022-07-20] MEDS ORDERED: ASPIRIN 81 MG CHEWABLE TABLETS PO SCH (10:00)
[2022-07-20] MEDS ORDERED: GABAPENTIN 300 MG CAPSULE PO SCH (10:00)
[2022-07-20] MEDS ORDERED: DIGOXIN 0.125 MG TABLET PO SCH (10:00)
[2022-07-20] MEDS ORDERED: APIXABAN 5 MG TABLET PO SCH (10:00)
[2022-07-20 10:32] LABS: BASO % 1.1 % (0-2.0); EOS % 2.9 % (0-4.5); HEMATOCRIT 44.2 % (35.4-49); HEMOGLOBIN 14.6 GM/dL (11.7-16.9); LYMPH % 10.6 % (8-40); MCH 28.3 pg (25.7-33.7); MEAN CELL VOLUME 85.7 fl (80-96); MEAN PLT VOLUME 8.2 fl (7.5-11.1); MONO % 11.2 % (3.8-10.2); NEUT % 74.2 % (42.8-82.8); PLATELET COUNT 164 10^3/uL (134-434); RBC 5.16 M/mm3 (4.00-5.60); RDW 17.6 % (11.9-15.9); WHITE BLOOD COUNT 8.3 K/mm3 (4.0-10.0)
[2022-07-20 11:06] LABS: ALBUMIN 3.6 g/dl (3.4-5.0); CALCIUM 8.8 mg/dL (8.5-10.1)
[2022-07-20 11:07] LABS: BLOOD UREA NITROGEN 31.8 mg/dL (7-18); MAGNESIUM 2.9 mg/dL (1.8-2.4)
[2022-07-20 11:09] LABS: CREATININE 1.6 mg/dL (0.55-1.3); PHOSPHOROUS 3.2 mg/dL (2.5-4.9); TOT PROT 7.1 g/dl (6.4-8.2)
[2022-07-20 11:10] LABS: BILIRUBIN,TOTAL 1.5 mg/dL (0.2-1)
[2022-07-20] MEDS ORDERED: HEPARIN - 25,000 UNIT in SODIUM CHLORIDE 495 ML IV SCH ×2 (11:30→14:30)
[2022-07-20] MEDS: TORSEMIDE 20 MG TABLET (FP) PO SCH (11:53)
[2022-07-20] MEDS ORDERED: VANCOMYCIN PREMIX 1.5 GM 1,500 MG/300 ML BAG IVPB SCH (12:00)
[2022-07-20] MEDS: metoPROLOL SUCCINATE 25 MG TAB.SR.24H (FP) PO SCH (13:15)
[2022-07-20] MEDS: PIPERACILLIN/TAZOB 2.25 GM 2.25 GM in DEXTROSE 5%-WATER - 50 ML IVPB SCH (17:49)
[2022-07-20] MEDS ORDERED: ATORVASTATIN CA 40 MG TABLET (FP) PO SCH (22:00)
[2022-07-21] MEDS: PIPERACILLIN/TAZOB 2.25 GM 2.25 GM in DEXTROSE 5%-WATER - 50 ML IVPB SCH ×2 (02:40→09:02)
[2022-07-21] MEDS: INSULIN SLIDING SCALE (NOVOLOG) 1 VIAL SQ SCH ×4 (06:03→21:30)
[2022-07-21] MEDS: metoPROLOL SUCCINATE 25 MG TAB.SR.24H (FP) PO SCH (09:00)
[2022-07-21] MEDS ORDERED: PROPOFOL 20 ML ONE (09:30)
[2022-07-21] MEDS ORDERED: SUCCINYLCHOLINE CHLORIDE 200 MG/10 ML SYRINGE ONE (09:31)
[2022-07-21] MEDS ORDERED: MIDAZOLAM HCL 2 MG/2 ML SINGLE DOSE VIAL ONE (09:31)
[2022-07-21 09:33] LABS: CALCIUM 8.9 mg/dL (8.5-10.1)
[2022-07-21 09:34] LABS: ALBUMIN 3.6 g/dl (3.4-5.0); BLOOD UREA NITROGEN 30.1 mg/dL (7-18)
[2022-07-21 09:37] LABS: CREATININE 1.7 mg/dL (0.55-1.3)
[2022-07-21 09:39] LABS: BILIRUBIN,TOTAL 1.8 mg/dL (0.2-1); TOT PROT 6.8 g/dl (6.4-8.2)
[2022-07-21] MEDS ORDERED: ceFAZolin SODIUM 1 GM VIAL IVPB ONE (09:49)
[2022-07-21] MEDS ORDERED: HEPARIN NA (PORCINE) 5,000 UNITS/ML 1ML VIAL SQ ONE ×2 (09:50→10:23)
[2022-07-21] MEDS ORDERED: LIDOCAINE HCL 1%, 10 MG/ML (20ML VIAL) NR ONE ×2 (10:20)
[2022-07-21] MEDS ORDERED: ONDANSETRON 4 MG/2 ML VIAL IVPUSH PRN (11:14)
[2022-07-21 16:11] VITALS: BMI 30.4
[2022-07-21] MEDS: CEFAZOLIN 1 GM in DEXTROSE 5%-WATER - 50 ML IVPB SCH (17:23)
[2022-07-21] MEDS ORDERED: PIPERACILLIN/TAZOB 2.25 GM 2.25 GM in DEXTROSE 5%-WATER - 50 ML IVPB SCH (18:00)
[2022-07-21] MEDS: BACLOFEN 10 MG TABLET (FP) PO SCH (18:09)
[2022-07-21] MEDS: TORSEMIDE 20 MG TABLET (FP) PO SCH (18:09)
[2022-07-21] MEDS: GABAPENTIN 300 MG CAPSULE PO SCH ×2 (18:09→21:31)
[2022-07-21] MEDS: APIXABAN 5 MG TABLET PO SCH (21:31)
[2022-07-21] MEDS: ATORVASTATIN CA 40 MG TABLET (FP) PO SCH (21:31)
[2022-07-22] MEDS: CEFAZOLIN 1 GM in DEXTROSE 5%-WATER - 50 ML IVPB SCH ×3 (01:52→17:44)
[2022-07-22] MEDS: INSULIN SLIDING SCALE (NOVOLOG) 1 VIAL SQ SCH ×4 (06:36→21:35)
[2022-07-22] MEDS ORDERED: metoPROLOL SUCCINATE 25 MG TAB.SR.24H (FP) PO SCH (10:00)
[2022-07-22] MEDS ORDERED: DIGOXIN 0.125 MG TABLET PO SCH (10:00)
[2022-07-22 10:07] LABS: BASO % 0.9 % (0-2.0); EOS % 1.7 % (0-4.5); HEMATOCRIT 44.8 % (35.4-49); HEMOGLOBIN 14.9 GM/dL (11.7-16.9); LYMPH % 11.4 % (8-40); MCH 28.4 pg (25.7-33.7); MCHC 33.2 g/dl (32.0-35.9); MEAN CELL VOLUME 85.4 fl (80-96); MEAN PLT VOLUME 8.2 fl (7.5-11.1); PLATELET COUNT 172 10^3/uL (134-434); RBC 5.25 M/mm3 (4.00-5.60); RDW 17.9 % (11.9-15.9); WHITE BLOOD COUNT 9.2 K/mm3 (4.0-10.0)
[2022-07-22 10:17] LABS: INR 2.03 (0.83-1.09); PROTHROMBIN TIME (PATIENT) 23.5 SEC (9.7-13.0)
[2022-07-22 10:28] LABS: ALBUMIN 3.8 g/dl (3.4-5.0); BLOOD UREA NITROGEN 33.5 mg/dL (7-18); CALCIUM 8.9 mg/dL (8.5-10.1); MAGNESIUM 2.7 mg/dL (1.8-2.4)
[2022-07-22 10:31] LABS: PHOSPHOROUS 3.3 mg/dL (2.5-4.9)
[2022-07-22 10:32] LABS: CREATININE 1.7 mg/dL (0.55-1.3)
[2022-07-22 10:33] LABS: BILIRUBIN,TOTAL 2.1 mg/dL (0.2-1); TOT PROT 7.3 g/dl (6.4-8.2)
[2022-07-22] MEDS: APIXABAN 5 MG TABLET PO SCH ×2 (10:50→21:34)
[2022-07-22] MEDS: BACLOFEN 10 MG TABLET (FP) PO SCH (10:51)
[2022-07-22] MEDS: GABAPENTIN 300 MG CAPSULE PO SCH ×2 (10:51→21:34)
[2022-07-22] MEDS: TORSEMIDE 20 MG TABLET (FP) PO SCH (10:52)
[2022-07-22] MEDS: COLLAGENASE CLOSTRIDIUM HIST. 30 GRAMS TUBE TP SCH (12:52)
[2022-07-22] MEDS: ATORVASTATIN CA 40 MG TABLET (FP) PO SCH (21:33)
[2022-07-22] MEDS: SACUBITRIL/VALSARTAN 24 MG-26 MG TABLET PO SCH (21:34)
[2022-07-23] MEDS: CEFAZOLIN 1 GM in DEXTROSE 5%-WATER - 50 ML IVPB SCH ×2 (01:34→09:33)
[2022-07-23] MEDS: INSULIN SLIDING SCALE (NOVOLOG) 1 VIAL SQ SCH ×2 (06:25→12:56)
[2022-07-23 09:23] LABS: HEMATOCRIT 43.9 % (35.4-49); HEMOGLOBIN 14.7 GM/dL (11.7-16.9); MCH 28.5 pg (25.7-33.7); MCHC 33.4 g/dl (32.0-35.9); MEAN CELL VOLUME 85.3 fl (80-96); MEAN PLT VOLUME 8.4 fl (7.5-11.1); PLATELET COUNT 163 10^3/uL (134-434); RBC 5.15 M/mm3 (4.00-5.60); RDW 17.8 % (11.9-15.9); WHITE BLOOD COUNT 7.2 K/mm3 (4.0-10.0)
[2022-07-23] MEDS: SACUBITRIL/VALSARTAN 24 MG-26 MG TABLET PO SCH (09:34)
[2022-07-23] MEDS: COLLAGENASE CLOSTRIDIUM HIST. 30 GRAMS TUBE TP SCH (09:34)
[2022-07-23] MEDS: TORSEMIDE 20 MG TABLET (FP) PO SCH (09:34)
[2022-07-23] MEDS: GABAPENTIN 300 MG CAPSULE PO SCH (09:34)
[2022-07-23] MEDS: BACLOFEN 10 MG TABLET (FP) PO SCH (09:34)
[2022-07-23] MEDS: APIXABAN 5 MG TABLET PO SCH (09:34)
[2022-07-23 09:38] LABS: BLOOD UREA NITROGEN 30.8 mg/dL (7-18); CALCIUM 8.1 mg/dL (8.5-10.1)
[2022-07-23 09:40] LABS: ALBUMIN 3.2 g/dl (3.4-5.0)
[2022-07-23 09:42] LABS: CREATININE 1.6 mg/dL (0.55-1.3)
[2022-07-23 09:44] LABS: BILIRUBIN,TOTAL 1.6 mg/dL (0.2-1); TOT PROT 6.3 g/dl (6.4-8.2)
[2022-07-23] MEDS ORDERED: metoPROLOL SUCCINATE 25 MG TAB.SR.24H (FP) PO SCH (10:00)
[2022-07-23 14:00] VITALS: BP 109/58; PULSE 74; RESP 18; TEMP 97.7
== END 2022-07-23 15:09 | disposition home or self-care (01) | DRG 253 ==
LOC: JER 11:03 → JERBED 23:32 → J5S 07-20 02:28
PROVIDERS: ADMIT Internal Medicine; ATTEND Internal Medicine
PROC: 3E05317 Introduction of Other Thrombolytic into Peripheral Artery, Percutaneous Approach (ICD-10-PCS; 2022-07-21)
PROC: B41DYZZ Fluoroscopy of Aorta and Bilateral Lower Extremity Arteries using Other Contrast (ICD-10-PCS; 2022-07-21)
PROC: 047L3Z1 Dilation of Left Femoral Artery using Drug-Coated Balloon, Percutaneous Approach (ICD-10-PCS; principal; 2022-07-21 10:00)
PROC: 4B02XTZ Measurement of Cardiac Defibrillator, External Approach (ICD-10-PCS; 2022-07-22)
DX: T82.856A Stenosis of peripheral vascular stent, initial encounter (principal); I13.0 Hypertensive heart and chronic kidney disease with heart failure and stage 1 through stage 4 chronic kidney disease, or unspecified chronic kidney disease; L03.116 Cellulitis of left lower limb; L97.929 Non-pressure chronic ulcer of unspecified part of left lower leg with unspecified severity; I50.42 Chronic combined systolic (congestive) and diastolic (congestive) heart failure; E11.51 Type 2 diabetes mellitus with diabetic peripheral angiopathy without gangrene; I73.9 Peripheral vascular disease, unspecified; E11.621 Type 2 diabetes mellitus with foot ulcer; N18.9 Chronic kidney disease, unspecified; I25.10 Atherosclerotic heart disease of native coronary artery without angina pectoris; Z95.1 Presence of aortocoronary bypass graft; Y83.9 Surgical procedure, unspecified as the cause of abnormal reaction of the patient, or of later complication, without mention of misadventure at the time of the procedure; E78.5 Hyperlipidemia, unspecified
CPT/HCPCS: 11042; 36415; 71045-TC-FY; 75635-TC; 76000-TC-FY; 80053; 80162; 82962; 83735; 84100; 85025; 85027; 85610; 85730; 87040; 93005; 93010; 93306-TC; 94760; 97116-GP; 97161-GP; 99285-25; A6022; C1760; C9803-CS; J0475; J1644; Q9967; U0003; U0005

== ENCOUNTER 2022-12-01 05:30 | Day surgery (SDC) | payer OTHER ==
[2022-11-25 14:18] VITALS: BMI 28.8
[2022-12-01] MEDS ORDERED: HEPARIN NA (PORCINE) 5,000 UNITS/ML 1ML VIAL ONE (09:46)
[2022-12-01] MEDS ORDERED: LIDOCAINE HCL 1%, 10 MG/ML (10ML VIAL) MDV ONE ×2 (09:46→09:52)
[2022-12-01] MEDS ORDERED: MIDAZOLAM HCL 2 MG/2 ML SINGLE DOSE VIAL ONE (10:27)
[2022-12-01] MEDS ORDERED: ceFAZolin SODIUM 1 GM VIAL IVPB ONE (11:53)
[2022-12-01] MEDS ORDERED: LIDOCAINE HCL 1%, 10 MG/ML (20ML VIAL) INF ONE ×2 (12:06)
[2022-12-01] MEDS ORDERED: ACETAMINOPHEN 500 MG TABLET (FP) PO PRN (12:52)
[2022-12-01] MEDS ORDERED: oxyCODONE HCL 5 MG TABLET PO PRN (12:52)
[2022-12-01 14:29] VITALS: RESP 16
[2022-12-01 15:04] VITALS: BP 97/63; PULSE 76; TEMP 97.3
== END 2022-12-01 15:00 | disposition home or self-care (01) ==
LOC: JASU-SURG 05:30
PROVIDERS: ATTEND Surgery Vascular Surgery
PROC: 04CM3ZZ Extirpation of Matter from Right Popliteal Artery, Percutaneous Approach (ICD-10-PCS; 2022-12-01)
PROC: 047M3ZZ Dilation of Right Popliteal Artery, Percutaneous Approach (ICD-10-PCS; principal; 2022-12-01 12:00)
DX: E11.621 Type 2 diabetes mellitus with foot ulcer (principal); L97.519 Non-pressure chronic ulcer of other part of right foot with unspecified severity; I70.201 Unspecified atherosclerosis of native arteries of extremities, right leg
CPT/HCPCS: 37225; C1885; 76000-TC-FY; 82962; 94760; C1760; C1769; J1644